=== PATIENT | male | born 1960 | race African-American/Black ===

== ENCOUNTER 2017-02-07 21:29 | Inpatient (IN) | payer MEDICARE, MEDICAID ==
[~2017-02-07] VITALS: Ht 188 cm; Wt 126.1 kg
[~2017-02-07 21:29] MED LIST: ALPR.25 PO; AMBI10TA PO; ASPI81CH CHEW; HYDR-3288 PO; LANTUS2P SQ; LIPI40TA PO; NORC5TAB PO; NOVORP2 SQ; PHOS667C5 PO; VENTAER INH; trimix SQ
[2017-02-07 21:32] VITALS: BP 146/71; PULSE 73; RESP 18; TEMP 99.1; O2SAT 96
--- NOTE | 2017-02-07 21:59 | PD ---
Physical Exam Time Seen by Provider: 21:55 Narrative 56yo M c/o RUQ abd pain w/ vomiting started today. vomiting in triage. Pt is dialysis pt; last done yesterday. Subjective fever. Hx of kidney stones. Hx of Hep C. VSS. Patient seen in triage. Awaiting bed placement. Data Data Last Documented VS Vital Signs Date Time Temp Pulse Resp B/P Pulse Ox O2 Delivery O2 Flow Rate FiO2 02/07/17 21:32 99.1 73 18 146/71 96 Room Air [facility] Supervised Visit with BECCA: Deanna Rosen Feb 07, 2017 21:59
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
[2017-02-07] MEDS ORDERED: MORPHINE SULFATE 8 MG/ML INJ IV PUSH ONE (23:30)
[2017-02-07] MEDS ORDERED: SODIUM CHLORIDE 0.9% FLUSH 10 ML FLUSH IV FLUSH PRN (23:30)
[2017-02-07] MEDS ORDERED: PANTOPRAZOLE SODIUM 40 MG VIAL IVP ONE (23:30)
[2017-02-07] MEDS ORDERED: ONDANSETRON HCL 4 MG/2 ML VIAL IVP ONE (23:30)
[2017-02-07 23:51] VITALS: BP 165/74; PULSE 66; RESP 24; O2SAT 100
[2017-02-08] VITALS: BP 165/74; PULSE 78; RESP 18; O2SAT 97
--- NOTE | 2017-02-08 00:19 | RADRPT ---
EXAM DATE/TIME: 02/07/2017 23:53 [place] COMPARISON: CT ABDOMEN & PELVIS W/O CONTRAST, March 05, 2016, 12:36. INDICATIONS : Right lower quadrant pain. ORAL CONTRAST: No oral contrast ingested. RADIATION DOSE: 17.47 CTDIvol (mGy) MEDICAL HISTORY : Diabetes mellitus type 2. Hypertension. Renal failure, chronic.Hep C SURGICAL HISTORY : None. ENCOUNTER: Initial ACUITY: 1 day PAIN SCALE: 6/10 LOCATION: Right lower quadrant TECHNIQUE: Volumetric scanning of the abdomen and pelvis was performed. Using automated exposure control and ad justment of the mA and/or kV according to patient size, radiation dose was kept as low as reasonably achievable to obtain optimal diagnostic quality images. The lack of IV contrast limits the diagnosis for certain organ pathology. He FINDINGS: LOWER LUNGS: The visualized lower lungs are clear. LIVER: Homogeneous density without lesion. There is no dilation of the biliary tree. Thickening of the gall bladder wall with a couple of tiny gallstones. This is unchanged compared to the prior exam. SPLEEN: Normal size without lesion. PANCREAS: Within normal limits. KIDNEYS: Normal in size and shape. There is no mass, stone, or hydronephrosis. The ureters are nondilated. ADRENAL GLANDS: Within normal limits. VASCULAR: There is no aortic aneurysm. BOWEL/MESENTERY: The stomach, small bowel, and colon demonstrate no acute abnormality. There is no free intraperitone al air or fluid. The appendix is unremarkable. There is stool in the colon. No inflammatory changes. ABDOMINAL WALL: Within normal limits. RETROPERITONEUM: There is no lymphadenopathy. BLADDER: Decompressed. No calcified stones. REPRODUCTIVE: Within normal limits. INGUINAL: There is no lymphadenopathy or hernia. MUSCULOSKELETAL: Primary bony degenerative changes. No significant changes compared to the prior study. CONCLUSION: 1. No evidence of calcified renal stones or hydronephrosis. 2. Chronic gallbladder disease not significantly changed compared to the prior study. 3. No acute intra-abdominal pathology. Gerard Pitts MD on February 08, 2017 at 0:14 Board Certified Radiologist. This report was verified electronically.
[2017-02-08 00:39] LABS: AUTOMATED NEUTROPHIL # 7.6 TH/MM3 (1.8-7.7); BASOPHIL % 0.3 % (0.0-2.0); EOSINOPHIL # 0.2 TH/MM3 (0-0.4); EOSINOPHIL % 2.2 % (0.0-4.0); HEMATOCRIT 33.9 % (39.0-51.0); HEMO FLAGS DIFF FINAL; LYMPH % 9.9 % (9.0-44.0); MEAN CELL VOLUME 91.1 FL (80.0-100.0); MEAN CORPUSCULAR HEMOGLOBIN 30.3 PG (27.0-34.0); MEAN CORPUSCULAR HGB CONC 33.2 % (32.0-36.0); MONO % 11.3 % (0.0-8.0); NEUT % 76.3 % (16.0-70.0); PLATELET COUNT 276 TH/MM3 (150-450); RED BLOOD COUNT 3.72 MIL/MM3 (4.50-5.90); RED CELL DISTRIBUTION WIDTH 14.9 % (11.6-17.2); WHITE BLOOD COUNT 9.9 TH/MM3 (4.0-11.0)
[2017-02-08 00:47] LABS: ALT (GPT) 795 U/L (12-78); ANION GAP 12 MEQ/L (5-15); BICARBONATE 27.8 MEQ/L (21.0-32.0); BLOOD UREA NITROGEN 34 MG/DL (7-18); CHLORIDE 98 MEQ/L (98-107); POTASSIUM 4.1 MEQ/L (3.5-5.1); SODIUM (NA) 138 MEQ/L (136-145)
[2017-02-08 00:49] LABS: APTT (PATIENT) 26.1 SEC (24.3-30.1); PROTHROMBIN TIME - PATIENT 10.9 SEC (9.8-11.6)
[2017-02-08 00:55] LABS: ALKALINE PHOSPHATASE 582 U/L (45-117); AST (GOT) 1054 U/L (15-37); TOTAL BILIRUBIN ADULT 1.4 MG/DL (0.2-1.0)
[2017-02-08] MEDS ORDERED: NALOXONE HCL 0.4 MG/ML AMP IV PRN (02:15)
[2017-02-08] MEDS ORDERED: ONDANSETRON HCL 4 MG/2 ML VIAL IVP PRN (02:15)
[2017-02-08] MEDS ORDERED: SODIUM CHLORIDE 0.9% FLUSH 10 ML FLUSH IV FLUSH PRN ×2 (02:15→12:00)
[2017-02-08 03:01] VITALS: BP 154/81; PULSE 70; RESP 18; TEMP 97.7; O2SAT 98
[2017-02-08] MEDS ORDERED: diphenhydrAMINE HCL 25 MG CAP PO PRN (03:45)
--- NOTE | 2017-02-08 06:01 | HHI.HP ---
[facility] Non-Staff Admission Diagnosis acute hepatitis, chronic kidney disease Diagnoses: Chief Complaint: abdominal pain Travel History International Travel<30 Days: No Contact w/Intl Traveler <30 Da: No Traveled to Known Affected Are: No History of Present Illness History from patient, ER physician communication, and review of medical records. Patient reported that he came to the hospital because he was having severe abdominal pains. He pointed to the right upper quadrant area. He reports he is not sure of the duration of his symptoms. He denies fever. However reports that he was having sweating and cold. Reports he always usually have diarrhea and he did not notice any worsening of it. He did have vomiting 1 today. He states that he was also having severe itching for past 3 days or so. He states he even went to [facility] about 3 days ago for itching. He was not admitted. He was never told that he did have some liver dysfunction. Patient states that he does have history of hepatitis C which was treated. He does not remember the names of the medications that he was given. He follows up with [facility] according to him. Apart from the above, patient denies any recent chest pain/shortness of breath/ syncopal episodes. He denies any blood in his stool or in his urine. Review of Systems Except as stated in HPI: all other systems reviewed are Neg Past Family Social History Past Medical History htn dm esrd on hd copd afib said only on asa hep C - by [facility], was treated Past Surgical History Bilateral eye surgery Intestinal repair in 2000 AV fistula placements. Ankle surgery, right Reported Medications Patient's medications EMRreviewed Allergies: Coded Allergies: No Known Allergies (Unverified , 02/07/17) Family History mom- dm , fr Social History smoker, but cant qualify drinks socially no drugs Physical Exam Vital Signs Vital Signs Date Time Temp Pulse Resp B/P Pulse Ox O2 Delivery O2 Flow Rate FiO2 02/08/17 03:01 97.7 70 18 154/81 98 02/08/17 00:00 78 18 165/74 97 Room Air 02/07/17 23:51 100 Room Air 02/07/17 23:51 66 24 165/74 100 Room Air 02/07/17 21:32 99.1 73 18 146/71 96 Room Air Physical Exam GENERAL: This is a well-nourished, well-developed patient, in no apparent distress. SKIN: No rashes, ecchymoses or lesions. Cool and dry. HEAD: Atraumatic. Normocephalic. No temporal or scalp tenderness. EYES: No scleral icterus. No injection or drainage. ENT: Nose without bleeding, purulent drainage or septal hematoma. Airway patent. NECK: Trachea midline. No JVD CARDIOVASCULAR: Regular rate and rhythm without murmurs, gallops, or rubs. RESPIRATORY: Clear to auscultation. Breath sounds equal bilaterally. No wheezes , rales, or rhonchi. GASTROINTESTINAL: Abdomen soft, non-tender, nondistended. No guarding. MUSCULOSKELETAL: Extremities without clubbing, cyanosis, or edema. No calf tenderness. NEUROLOGICAL: Awake and alert. Motor and sensory grossly within normal limits. Normal speech. Laboratory Laboratory Tests Test 02/08/17 00:20 White Blood Count 9.9 Red Blood Count 3.72 Hemoglobin 11.3 Hematocrit 33.9 Mean Corpuscular Volume 91.1 Mean Corpuscular Hemoglobin 30.3 Mean Corpuscular Hemoglobin 33.2 Concent Red Cell Distribution Width 14.9 Platelet Count 276 Mean Platelet Volume 8.8 Neutrophils (%) (Auto) 76.3 Lymphocytes (%) (Auto) 9.9 Monocytes (%) (Auto) 11.3 Eosinophils (%) (Auto) 2.2 Basophils (%) (Auto) 0.3 Neutrophils # (Auto) 7.6 Lymphocytes # (Auto) 1.0 Monocytes # (Auto) 1.1 Eosinophils # (Auto) 0.2 Basophils # (Auto) 0.0 CBC Comment DIFF FINAL Differential Comment Prothrombin Time 10.9 Prothromb Time International 1.0 Ratio Activated Partial 26.1 Thromboplast Time Sodium Level 138 Potassium Level 4.1 Chloride Level 98 Carbon Dioxide Level 27.8 Anion Gap 12 Blood Urea Nitrogen 34 Creatinine 9.17 Random Glucose 264 Lactic Acid Level 1.1 Calcium Level 9.8 Total Bilirubin 1.4 Aspartate Amino Transf 1054 (AST/SGOT) Alanine Aminotransferase 795 (ALT/SGPT) Alkaline Phosphatase 582 Total Protein 8.9 Albumin 3.6 Lipase 504 Acetaminophen Level LESS THAN 2.0 Result Diagram: 02/08/17 0020 02/08/17 0020 Imaging Last 48 hours Impressions Abdomen/Pelvis CT 02/07/17 2323 Signed Impressions: Service Date/Time: January 23:53 - CONCLUSION: 1. No evidence of calcified renal stones or hydronephrosis. 2. Chronic gallbladder disease not significantly changed compared to the prior study. 3. No acute intra-abdominal pathology. Gerard Pitts MD Assessment and Plan Problem List: (1) Renal failure ICD Code: N19 Status: Chronic Assessment and Plan Impression: Acute transaminitis/ hepatitisetiology unclear. Rule out stones/Tylenol toxicity Acute pancreatitis Hypertension Diabetes COPD Reports atrial fibrillationonly on aspirin Hepatitis C/reports he was treated. unsure it was sucessful or not. [facility] with [facility]. ESRD on hemodialysis Plan: Patient's case was discussed with GI specialists by ER physician. At this point, there is no evidence of Tylenol toxicity. Tylenol level was drawn and was negative. Patient also denies taking Tylenol. We'll follow trend. CT abdomen isreviewed. Nephrology consult for hemodialysis. Unfortunately, in this end-stage renal disease patient with likely diastolic heart failure, he would have to be cautious with IV fluids. CT did not reveal any acute pathology including pancreatitis or stones. Need to obtain home medications from pharmacy as patient not remember them. In DVT prophylaxiswith heparin Discussed Condition With Patient, ER physician Physician Certification 2 Midnight Certification Type: Admission for Inpatient Services Order for Inpatient Services The services are ordered in accordance with Medicare regulations or non- Medicare payer requirements, as applicable. In the case of services not specified as inpatient-only, they are appropriately provided as inpatient services in accordance with the 2-midnight benchmark. Estimated LOS (days): 2 days is the estimated time the patient will need to remain in the hospital, assuming treatment plan goals are met and no additional complications. Post-Hospital Plan: Home Leroy Echevarria MD Feb 08, 2017 06:01
[2017-02-08] MEDS ORDERED: DEXTROSE 50% IN WATER 50 ML VIAL(D50) IV PUSH PRN (07:00)
[2017-02-08] MEDS ORDERED: GLUCAGON 1 MG/ML VIAL OTHER PRN (07:00)
[2017-02-08] MEDS: diphenhydrAMINE HCL 50 MG/ML VIAL IV PUSH PRN ×2 (07:36→11:21)
[2017-02-08 08:00] VITALS: BP 195/88; PULSE 59; RESP 18; TEMP 97.2; O2SAT 95
[2017-02-08] MEDS: SODIUM CHLORIDE 0.9% FLUSH 10 ML FLUSH IV FLUSH SCH ×2 (09:00→21:10)
--- NOTE | 2017-02-08 09:33 | PD.CONS ---
HPI History of Present Illness This is a 56 year old AA male with past medical history of HTN, A-fib, ESRD on HD, COPD, A-fib on ASA, hep-c s/p treatment few months ago is here for evaluation of severe RUQ pain associated with nausea, vomiting, sever itching and dark urine. He is not sure of duration of this pain, but it became unbearable yesterday. He has been having severe itching for past few days. He was sent to [facility] about 3 days ago from dialysis for itching, and that's when he learned about the elevation of LFTs and was told to f/u with GI, but hasn't made a f/u appt. yet. He reports that he was having sweating and cold , no fever or chills. He reports chronic constipation but no change in bowel habits. He reports a loss in appetite. Tylenol levels negative, he drinks on occasions, he denies NSAIDs or new medications or abx. On arrival AST 1054, ALT 795, ALP 582, bili 1.4, lipase 504. CT done . No evidence of calcified renal stones or hydronephrosis. 2. Chronic gallbladder disease not significantly changed compared to the prior study. 3. No acute intra-abdominal pathology. (Marcus Marino) PFSH Past Medical History htn dm esrd on hd copd afib said only on asa hep C - s/p treatment few months ago Past Surgical History Bilateral eye surgery Intestinal repair in 2000 AV fistula placements. Ankle surgery, right (Marcus Marino) Coded Allergies: No Known Allergies (Unverified , 02/07/17) Medications Current Medications Medications (Trade) Dose Ordered Sig/Katelyn Route Start Time Stop Time Status Last Admin (NS Flush) 2 ml UNSCH PRN IV FLUSH 02/07/17 23:30 (NS Flush) 2 ml UNSCH PRN IV FLUSH 02/08/17 02:15 (NS Flush) 2 ml BID IV FLUSH 02/08/17 09:00 (Zofran Inj) 4 mg Q6H PRN IVP 02/08/17 02:15 (Narcan Inj) 0.4 mg UNSCH PRN IV 02/08/17 02:15 (Benadryl Inj) 50 mg Q4H PRN IV PUSH 02/08/17 07:00 02/08/17 07:36 (D50w (Vial) Inj) 25 ml UNSCH PRN IV PUSH 02/08/17 07:00 (Glucagon Inj) 1 mg UNSCH PRN OTHER 02/08/17 07:00 Family History Non contributory Social History smoker, but cant qualify drinks socially no drugs (Marcus Marino) Review of Systems Constitutional: COMPLAINS OF: Fatigue, Change in appetite Eyes: DENIES: Double Vision Ears, nose, mouth, throat: DENIES: Hoarseness Respiratory: DENIES: Shortness of breath Cardiovascular: DENIES: Lower Extremity Edema Gastrointestinal: COMPLAINS OF: Abdominal pain, Constipation, Nausea, Vomiting , Anorexia, DENIES: Black stools, Bloody stools, Diarrhea, Difficulty Swallowing, Odynophagia, Swelling of Abdomen, Heartburn, Hematemesis Genitourinary: DENIES: Hematuria Musculoskeletal: DENIES: Neck pain Integumentary: DENIES: Jaundice Hematologic/lymphatic: DENIES: Bruising Neurologic: DENIES: Abnormal gait Psychiatric: DENIES: Anxiety (Marcus Marino) GI Exam Vitals I&O Vital Signs Date Time Temp Pulse Resp B/P Pulse Ox O2 Delivery O2 Flow Rate FiO2 02/08/17 03:01 97.7 70 18 154/81 98 02/08/17 00:00 78 18 165/74 97 Room Air 02/07/17 23:51 100 Room Air 02/07/17 23:51 66 24 165/74 100 Room Air 02/07/17 21:32 99.1 73 18 146/71 96 Room Air I/O 02/07/17 02/07/17 02/07/17 02/08/17 02/08/17 02/08/17 07:00 15:00 23:00 07:00 15:00 23:00 Intake Total 0 ml Balance 0 ml Intake Oral 0 ml # Voids 0 # Bowel Movements 0 Imaging Last Impressions Abdomen/Pelvis CT 02/07/17 [id number] Signed Impressions: Service Date/Time: January 23:53 - CONCLUSION: 1. No evidence of calcified renal stones or hydronephrosis. 2. Chronic gallbladder disease not significantly changed compared to the prior study. 3. No acute intra-abdominal pathology. Gerard Pitts MD Laboratory Test 02/08/17 00:20 White Blood Count 9.9 TH/MM3 Red Blood Count 3.72 MIL/MM3 Hemoglobin 11.3 GM/DL Hematocrit 33.9 % Mean Corpuscular Volume 91.1 FL Mean Corpuscular Hemoglobin 30.3 PG Mean Corpuscular Hemoglobin 33.2 % Concent Red Cell Distribution Width 14.9 % Platelet Count 276 TH/MM3 Mean Platelet Volume 8.8 FL Neutrophils (%) (Auto) 76.3 % Lymphocytes (%) (Auto) 9.9 % Monocytes (%) (Auto) 11.3 % Eosinophils (%) (Auto) 2.2 % Basophils (%) (Auto) 0.3 % Neutrophils # (Auto) 7.6 TH/MM3 Lymphocytes # (Auto) 1.0 TH/MM3 Monocytes # (Auto) 1.1 TH/MM3 Eosinophils # (Auto) 0.2 TH/MM3 Basophils # (Auto) 0.0 TH/MM3 CBC Comment DIFF FINAL Differential Comment Prothrombin Time 10.9 SEC Prothromb Time International 1.0 RATIO Ratio Activated Partial 26.1 SEC Thromboplast Time Sodium Level 138 MEQ/L Potassium Level 4.1 MEQ/L Chloride Level 98 MEQ/L Carbon Dioxide Level 27.8 MEQ/L Anion Gap 12 MEQ/L Blood Urea Nitrogen 34 MG/DL Creatinine 9.17 MG/DL Random Glucose 264 MG/DL Lactic Acid Level 1.1 mmol/L Calcium Level 9.8 MG/DL Total Bilirubin 1.4 MG/DL Aspartate Amino Transf 1054 U/L (AST/SGOT) Alanine Aminotransferase 795 U/L (ALT/SGPT) Alkaline Phosphatase 582 U/L Total Protein 8.9 GM/DL Albumin 3.6 GM/DL Lipase 504 U/L Acetaminophen Level LESS THAN 2.0 MCG/ML Physical Examination HEENT: normocephalic; atraumatic; no jaundice. Throat is clear. NECK: Neck is supple, no JVD, no lymphadenopathy. CHEST: Chest is clear to auscultation and percussion. CARDIAC: Regular rate and rhythm with no murmur gallop or rubs. ABDOMEN: Soft, nondistended, nontender; no hepatosplenomegaly; bowel sounds are present in all four quadrants. EXTREMITIES: No clubbing, cyanosis, or edema. SKIN: Normal; no rash; no jaundice. SPECIAL EDUCATION EDUCATIONAL ASSISTANT: No focal deficits; alert and oriented times three. (Marcus Marino) Assessment and Plan Plan - Acute transaminitis- Unclear etiology, no hypotension documented, Possible gallstones related, biliary stones, or acute cholecystitis On arrival AST 1054, ALT 795, ALP 582, bili 1.4, lipase 504. CT done . No evidence of calcified renal stones or hydronephrosis. 2. Chronic gallbladder disease not significantly changed compared to the prior study. 3. No acute intra-abdominal pathology. He has been having severe RUQ pain associated with nausea, vomiting, sever itching and dark urine. He is not sure of duration of this pain, but it became unbearable yesterday. He has been having severe itching for past few days. He was sent to [facility] about 3 days ago from dialysis for itching, and that's when he learned about the elevation of LFTs and was told to f/u with GI, but hasn't made a f/u appt. yet. He reports that he was having sweating and cold, no fever or chills. He reports chronic constipation but no change in bowel habits. He reports a loss in appetite. Tylenol levels negative, he drinks on occasions, he denies NSAIDs or new medications or abx. - Acute pancreatitis- lipase 504, no pancreatitis on ct, - Severe itching- Benadryl - Hep-c s/p tx - ESRD- HD (M, W, F) - A-fib, HTN per attending Plan: - NPO - MRCP to r/o biliary sludge, choledocholithiasis - Monitor labs - hepatitis panel/ hep-c PCR, ceruloplasmin, alpha-antitrypsin deficiency, celiac, iron studies, KAMRAN, AMA, ASMA - Pending results above, will decide on the next step - Consider GS consult - IV hydration - Pain meds - Cont. Benadryl - Patient seen and examined by Dr. Griffin and myself and this note is written on his behalf. (Marcus Marino) Physician Comments PATIENT WAS SEEN AND EXAMINED, AGREE WITH ABOVE NOTE. MRCP SHOWED CBD STONES, WE WILL PLAN FOR ERCP IN AM (Waleska Griffin MD) Marcus Marino Feb 08, 2017 09:32 Waleska Griffin MD Feb 08, 2017 19:10
--- NOTE | 2017-02-08 11:30 | RADRPT ---
EXAM DATE/TIME: 02/08/2017 10:18 [facility] COMPARISON: CT ABDOMEN & PELVIS W/O CONTRAST, February 07, 2017, 23:53. INDICATIONS : Abdominal pain. MEDICAL HISTORY : Hypertension. Diabetes mellitus type 2. Renal disease, end stage. SURGICAL HISTORY : Colon resection. Right ankle. ENCOUNTER: Initial ACUITY: 2 day PAIN SCORE: 5/10 LOCATION: abdomen TECHNIQUE: Multiplanar, multisequence magnetic resonance imaging of the abdomen was performed. High-resolution 3D dataset was utilized to reconstruct maximum-intensity projection (MIP) images. FINDINGS: INTRAHEPATIC BILE DUCTS: Minimally dilated without filling defects. EXTRAHEPATIC BILE DUCTS: Moderately dilated with common duct diameter of 12-13 mm. Multiple small stones in the distal CBD. GALLBLADDER: Filled with stones. Moderate diffuse gallbladder wall thickening. Stones in the gallbladder neck and cystic duct. LIVER: Normal size and signal intensity. No concerning liver lesion is identified on this non-contrast exam. PANCREAS: The main pancreatic duct is normal in size. There is no significant anatomical variant. Signal inte nsity is within normal limits. No mass is visualized on this non-contrast exam. OTHER: The remaining visualized structures demonstrate no acute abnormality on this non-contrast exam. CONCLUSION: Gallstones and cystic duct stones with diffuse gallbladder wall thickening. Intra-and extrahepatic biliary ductal dilatation with multiple small stones in the distal CBD. Dawit Hernandez MD on February 08, 2017 at 11:14 Board Certified Radiologist. This report was verified electronically.
[2017-02-08] MEDS ORDERED: OXYC15TA PO (11:50)
[2017-02-08] MEDS ORDERED: GABA600T PO (11:50)
[2017-02-08] MEDS ORDERED: MELO7.5T4 PO (11:50)
[2017-02-08] MEDS ORDERED: SODIUM CHLOR 0.9% 1000 ML INJ 1,000 ML IV PRN ×3 (11:53)
[2017-02-08 12:00] VITALS: BP 134/76; PULSE 58; RESP 18; TEMP 97.7; O2SAT 95
[2017-02-08] MEDS ORDERED: HEPARIN SODIUM - IV 10,000 UNITS/10 ML VIAL PRN (12:00)
[2017-02-08] MEDS ORDERED: HEPARIN SODIUM - IV 10,000 UNITS/10 ML VIAL IVF PRN (12:00)
[2017-02-08] MEDS ORDERED: MANNITOL 12.5 GM/50 ML VIAL IV PRN (12:00)
[2017-02-08] MEDS ORDERED: NITROGLYCERIN 0.4 MG SL 25 TABS/BTL SL PRN (12:00)
[2017-02-08] MEDS ORDERED: ONDANSETRON HCL 4 MG/2 ML VIAL IV PRN (12:00)
[2017-02-08] MEDS ORDERED: cloNIDine HCL 0.1 MG TAB PO PRN ×2 (12:00→14:30)
[2017-02-08] MEDS ORDERED: ALBUMIN HUMAN 25% 25 GM/100 ML BAGP IV PRN (12:00)
[2017-02-08] MEDS ORDERED: GENTAMICIN SULFATE (DIALYSIS USE ONLY) 20 MG/2 ML VIAL IV PRN (12:00)
[2017-02-08] MEDS ORDERED: ACETAMINOPHEN 325 MG TAB PO PRN (12:00)
[2017-02-08] MEDS: hydrOXYzine HCL 25 MG TAB PO PRN ×2 (12:50→22:38)
[2017-02-08 13:37] LABS: PROTHROMBIN TIME - PATIENT 11.1 SEC (9.8-11.6)
--- NOTE | 2017-02-08 13:38 | MB ---
cc: EDILMA BUSTILLOS MD DATE OF CONSULTATION 02/08/2017 REASON FOR CONSULTATION End-stage renal disease on hemodialysis for management. HISTORY OF PRESENT ILLNESS This is a 56-year-old male known to me from before with past medical history of hypertension, diabetes mellitus, chronic obstructive pulmonary disease, atrial fibrillation and end-stage renal disease on hemodialysis three times per week who came to the hospital with a complaint of abdominal pain, nausea, vomiting and loose bowel motion. I was called to see the patient for the management of dialysis. He has been on hemodialysis Saturday, Saturday and Saturday and he had his last hemodialysis done on Saturday. He had some problem with his AV fistula and he had angioplasty done two to three weeks ago and since then, according to the patient, it is working better and he had good dialysis on Saturday. According to the patient, this nausea and vomiting started two to three days ago. He had loose bowel motion from before and also has abdominal pain which started two to three days ago which was mainly the right upper quadrant. His vomiting and loose bowel motion is better and his pain is also improving. The patient was seen by GI and he just went for the MRCP. He denies any history of fever. No shortness of breath, chest pain or palpitation. PAST MEDICAL HISTORY 1. Hypertension 2. Diabetes mellitus 3. Chronic obstructive pulmonary disease 4. Atrial fibrillation 5. End-stage renal disease on hemodialysis. PAST SURGICAL HISTORY 1. Bilateral eye surgery 2. Left arm AV fistula surgery 3. Ankle surgery 4. Intestinal repair surgery in 2000. REVIEW OF SYSTEMS Denies any history of fever. No sore throat. No headache, dizziness or blurring of vision. No chest pain and no palpitation. He has nausea and vomiting that started two to three days ago, but it is better since he came to the hospital. There is no history of fevers. He has loose bowel motion going on for more than a week and has abdominal pain that is mainly in the epigastrium and the right upper quadrant, but is improving also. SOCIAL HISTORY The patient is a chronic smoker. There is no history of heavy alcoholism. FAMILY HISTORY Noncontributory ALLERGIES He has NO KNOWN DRUG ALLERGIES. MEDICATIONS Currently he is just on and he is just been given one dose of Protonix and he is on morphine sulfate. PHYSICAL EXAM On examination, the patient is awake and alert. He is sitting on the bed not in acute distress. VITAL SIGNS: Blood pressure is 195/88, temperature 97.2, oxygen saturation 95-98% on room air. HEAD, EYES, EARS, NOSE, AND THROAT: Pupils equally reacting to light. Nonicteric sclera, conjunctiva pale. NECK: Supple. JVD is not elevated. LUNGS: The patient has bilaterally decreased air entry at the bases with occasional wheezing. HEART: S1 and S2 regular rhythm. ABDOMEN: Distended, soft and lax. There is mild epigastric tenderness. There is no rebound rigidity. Bowel sounds positive. EXTREMITIES: He has 1+ edema in the leg. Left arm AV fistula has a good bruit. INVESTIGATION WBC count is 9.9, hemoglobin 11.3, platelet count of 276, neutrophils 76.3%, monos 11.3. Sodium 138, potassium 4.1, chloride 98, bicarb 27.8, BUN 34, creatinine 9.1, glucose 264, total bilirubin is 1.4, AST is 1054, ALT is 795, alkaline phosphatase 582, total protein 6.9, albumin is 3.6, lipase 504, INR 1.0. Lactic acid is 1.1. Previously he had hepatitis C antibodies reactive. IMAGING STUDIES The patient had a CT scan of the abdomen and pelvis done which shows that she has no renal stone or hydronephrosis. He has chronic gallbladder disease. No acute intra-abdominal pathology. He went for MRCP and shows one stone in the cystic duct, a stone with diffuse gallbladder thickening, multiple stones in the distal common bile duct. ASSESSMENT/PLAN 1. Acute liver injury 2. Gallbladder and CBD stone 3. End-stage renal disease on hemodialysis 4. Hypertension 5. Diabetes mellitus 6. Mild anemia 7. Obesity The patient has been seen by GI and he has a stone in the CBD and possibly will need ERCP. GI is following. His liver enzymes are elevated, possibly related to that. At present, he is hemodynamically stable. His blood pressure on the higher side because he was not given his home medications and also was supposed to have dialysis today. I already informed the dialysis, I am going to write the order. He is complaining of itching so I will give him some Atarax. Thank you for the consultation and over the weekend the patient will be followed by Dr. Arce. MD PHILOMENA Mcdaniel/DJL /11:50 AM /1:14 PM
[2017-02-08 13:43] LABS: AUTOMATED NEUTROPHIL # 4.5 TH/MM3 (1.8-7.7); BASOPHIL # 0.1 TH/MM3 (0-0.2); BASOPHIL % 0.8 % (0.0-2.0); EOSINOPHIL # 0.2 TH/MM3 (0-0.4); EOSINOPHIL % 3.7 % (0.0-4.0); HEMATOCRIT 35.2 % (39.0-51.0); HEMO FLAGS DIFF FINAL; LYMPH % 15.8 % (9.0-44.0); MEAN CELL VOLUME 91.3 FL (80.0-100.0); MEAN CORPUSCULAR HEMOGLOBIN 29.9 PG (27.0-34.0); MEAN CORPUSCULAR HGB CONC 32.7 % (32.0-36.0); MONO % 11.1 % (0.0-8.0); NEUT % 68.6 % (16.0-70.0); PLATELET COUNT 281 TH/MM3 (150-450); RED BLOOD COUNT 3.86 MIL/MM3 (4.50-5.90); RED CELL DISTRIBUTION WIDTH 15.2 % (11.6-17.2); WHITE BLOOD COUNT 6.5 TH/MM3 (4.0-11.0)
[2017-02-08 14:00] LABS: ALKALINE PHOSPHATASE 584 U/L (45-117); ALT (GPT) 1270 U/L (12-78); ANION GAP 10 MEQ/L (5-15); AST (GOT) 1508 U/L (15-37); BICARBONATE 25.8 MEQ/L (21.0-32.0); BLOOD UREA NITROGEN 42 MG/DL (7-18); CHLORIDE 100 MEQ/L (98-107); GLOMERULAR FILTRATION RATE 6 ML/MIN (>89); POTASSIUM 4.1 MEQ/L (3.5-5.1); SODIUM (NA) 136 MEQ/L (136-145); TOTAL BILIRUBIN ADULT 1.6 MG/DL (0.2-1.0)
[2017-02-08] MEDS ORDERED: ALPRAZolam 0.25 MG TAB PO PRN (14:30)
[2017-02-08] MEDS ORDERED: ALBUTEROL SULFATE 90 MCG/ACT HFA 8 GM INHALER INH PRN (14:30)
[2017-02-08] MEDS ORDERED: ALBUTEROL SULFATE 90 MCG/ACT HFA 18 GM INHALER INH PRN (14:47)
[2017-02-08] MEDS: EPOETIN ALFA 10,000 UNITS/ML VIAL IV PRN (15:51)
[2017-02-08] MEDS: GELATIN 12 MM/7 MM FOAM TOP PRN (15:52)
[2017-02-08] MEDS: INSULIN ASPART SUPPLEMENTAL SCALE SQ SCH ×2 (16:00→21:00)
--- NOTE | 2017-02-08 16:26 | HHI.PR ---
Addendum to Inpatient Note Addendum Reason: Additional Documentation Additional Information The patient received dialysis. He went for MRCP which showed diffuse gallbladder wall thickening, gallstones and stones in the distal common bile duct. Gastroenterology was notified and will schedule an ERCP for the morning. LFTs and lipase will be monitored. He will be nothing by mouth. He'll receive pain control as needed. Poli Arreola DO Feb 08, 2017 16:26
[2017-02-08] MEDS: CALCIUM ACETATE 667 MG CAP PO SCH (18:00)
[2017-02-08] MEDS ORDERED: GABAPENTIN 100 MG CAP PO SCH (18:00)
[2017-02-08 18:10] VITALS: BP 131/61; PULSE 55; RESP 20; TEMP 97.6; O2SAT 100
[2017-02-08 18:57] LABS: ALKALINE PHOSPHATASE 552 U/L (45-117); ANION GAP 8 MEQ/L (5-15); BLOOD UREA NITROGEN 31 MG/DL (7-18); CHLORIDE 100 MEQ/L (98-107); GLOMERULAR FILTRATION RATE 8 ML/MIN (>89); POTASSIUM 3.9 MEQ/L (3.5-5.1); SODIUM (NA) 136 MEQ/L (136-145); TOTAL BILIRUBIN ADULT 1.2 MG/DL (0.2-1.0); TRANSFERRIN IRON PROFILE 179 MG/DL (200-360)
[2017-02-08 19:18] LABS: ALT (GPT) 1143 U/L (12-78); AST (GOT) 1051 U/L (15-37)
[2017-02-08 19:31] LABS: FERRITIN 2316 NG/ML (26-388)
[2017-02-08 21:22] VITALS: BP 131/72; PULSE 58; RESP 22; TEMP 98.2; O2SAT 99
[2017-02-09] VITALS (10 sets, daily range): BP systolic 117–138; BP diastolic 63–79; PULSE 46–65; RESP 16–22; TEMP 97.3–98.7; O2SAT 93–100
[2017-02-09 01:10] LABS: ALKALINE PHOSPHATASE 512 U/L (45-117); ALT (GPT) 970 U/L (12-78); ANION GAP 12 MEQ/L (5-15); AST (GOT) 695 U/L (15-37); BICARBONATE 29.4 MEQ/L (21.0-32.0); BLOOD UREA NITROGEN 34 MG/DL (7-18); CHLORIDE 97 MEQ/L (98-107); GLOMERULAR FILTRATION RATE 7 ML/MIN (>89); POTASSIUM 3.7 MEQ/L (3.5-5.1); SODIUM (NA) 138 MEQ/L (136-145); TOTAL BILIRUBIN ADULT 0.7 MG/DL (0.2-1.0)
[2017-02-09] MEDS: diphenhydrAMINE HCL 50 MG/ML VIAL IV PUSH PRN ×2 (05:11→19:49)
[2017-02-09] MEDS: INSULIN ASPART SUPPLEMENTAL SCALE SQ SCH ×4 (07:53→20:37)
[2017-02-09] MEDS: SODIUM CHLORIDE 0.9% FLUSH 10 ML FLUSH IV FLUSH SCH ×2 (08:00→19:49)
[2017-02-09] MEDS: CALCIUM ACETATE 667 MG CAP PO SCH ×3 (09:00→17:39)
[2017-02-09] MEDS ORDERED: PROPOFOL 200 MG/20 ML AMP IV ONE (10:45)
[2017-02-09] MEDS ORDERED: GLUCAGON 1 MG/ML VIAL IV ONE (10:54)
[2017-02-09] MEDS ORDERED: SINCALIDE 5 MCG/5 ML VIAL IV ONE (11:02)
--- NOTE | 2017-02-09 11:58 | RADRPT ---
EXAM DATE/TIME: 02/09/2017 10:47 [facility] COMPARISON: No previous studies available for comparison. INDICATIONS : Stones. FLUORO TIME: 5.2 minutes IMAGE COUNT: 4 CONTRAST: Instilled by Ordering Physician MEDICAL HISTORY : None. SURGICAL HISTORY : None. ENCOUNTER: Initial ACUITY: 1 day PAIN SCORE: Non-responsive. LOCATION: Right upper quadrant FINDINGS: An ERCP was performed by the ordering physician. The images demonstrate dilated common bile duct and a balloon in the common bile duct for common bile duct stone extraction. CONCLUSION: ERCP as above. Delma Obando MD on February 09, 2017 at 11:56 Board Certified Radiologist. This report was verified electronically.
[2017-02-09] MEDS ORDERED: KETAMINE HCL 500 MG/5 ML VIAL ONE (12:13)
--- NOTE | 2017-02-09 13:34 | HHI.PR ---
Subjective Remarks The patient was seen following ERCP. He said this pain has resolved. He wanted to know what caused his itching. He was not nauseous. He was willing to try something to eat. Family at the bedside. Discussed with nursing. Objective Vitals Vital Signs Date Time Temp Pulse Resp B/P Pulse Ox O2 Delivery O2 Flow Rate FiO2 02/09/17 12:29 97.9 54 16 138/73 99 02/09/17 12:00 97.3 60 14 168/88 97 Nasal Cannula 2 02/09/17 11:45 59 14 164/91 97 Nasal Cannula 2 02/09/17 11:40 97.3 56 14 137/94 97 Nasal Cannula 2 02/09/17 08:29 93 21 02/09/17 08:05 97.3 46 16 137/66 99 02/09/17 04:06 98.7 65 22 128/78 98 02/09/17 00:16 98.6 54 20 117/63 96 02/08/17 21:22 98.2 58 22 131/72 99 02/08/17 18:10 97.6 55 20 131/61 100 I/O 02/08/17 02/08/17 02/08/17 02/09/17 02/09/17 02/09/17 07:00 15:00 23:00 07:00 15:00 23:00 Intake Total 0 ml 560 ml 0 ml 100 ml Output Total 150 ml 2003 ml 0 ml Balance 0 ml -150 ml -1443 ml 0 ml 100 ml Intake Oral 0 ml 560 ml 0 ml Other 100 ml Output Urine Total 150 ml 3 ml 0 ml Hemodialysis 2000 ml # Voids 0 # Bowel Movements 0 0 0 Result Diagram: 02/08/17 1307 02/08/17 2355 Imaging Last Impressions GI Procedure 02/09/17 0000 Signed Impressions: Service Date/Time: Thursday, February 09, 2017 10:47 - CONCLUSION: ERCP as above. Delma Obando MD Cholangiopancreatography MRI 02/08/17 0000 Signed Impressions: Service Date/Time: Wednesday, February 08, 2017 10:18 - CONCLUSION: Gallstones and cystic duct stones with diffuse gallbladder wall thickening. Intra-and extrahepatic biliary ductal dilatation with multiple small stones in the distal CBD. Dawit Hernandez MD Abdomen/Pelvis CT 02/07/17 [id number] Signed Impressions: Service Date/Time: January 23:53 - CONCLUSION: 1. No evidence of calcified renal stones or hydronephrosis. 2. Chronic gallbladder disease not significantly changed compared to the prior study. 3. No acute intra-abdominal pathology. Gerard Pitts MD Objective Remarks GENERAL: This is a well-nourished, well-developed patient, in no apparent distress. SKIN: No rashes, ecchymoses or lesions. Cool and dry. HEAD: Atraumatic. Normocephalic. No temporal or scalp tenderness. EYES: No scleral icterus. No injection or drainage. ENT: Nose without bleeding, purulent drainage or septal hematoma. Airway patent. NECK: Trachea midline. No JVD CARDIOVASCULAR: Regular rate and rhythm without murmurs, gallops, or rubs. RESPIRATORY: Clear to auscultation. Breath sounds equal bilaterally. No wheezes , rales, or rhonchi. GASTROINTESTINAL: Abdomen soft, non-tender, distended but soft. No guarding. MUSCULOSKELETAL: Extremities without clubbing, cyanosis, or edema. NEUROLOGICAL: Awake and alert. Motor and sensory grossly within normal limits. Normal speech. PSYCH: Mood and affect appropriate. Procedures ERCP 02/09. Medications and IVs Current Medications Medications (Trade) Dose Ordered Sig/Katelyn Route Start Time Stop Time Status Last Admin (NS Flush) 2 ml UNSCH PRN IV FLUSH 02/08/17 02:15 (NS Flush) 2 ml BID IV FLUSH 02/08/17 09:00 02/09/17 08:00 (Zofran Inj) 4 mg Q6H PRN IVP 02/08/17 02:15 (Narcan Inj) 0.4 mg UNSCH PRN IV 02/08/17 02:15 (Benadryl Inj) 50 mg Q4H PRN IV PUSH 02/08/17 07:00 02/09/17 05:11 (D50w (Vial) Inj) 25 ml UNSCH PRN IV PUSH 02/08/17 07:00 (Glucagon Inj) 1 mg UNSCH PRN OTHER 02/08/17 07:00 Hydroxyzine HCl 25 mg 25 mg Q8H PRN PO 02/08/17 12:00 02/08/17 22:38 (NS 1000 ml Inj) 1,000 ml @ 0 mls/hr Q0M PRN IV 02/08/17 11:53 Heparin Sodium (Porcine) 8000 units 8,000 units UNSCH PRN IVF 02/08/17 12:00 Sodium Chloride 1,000 ml @ 200 mls/hr Q5H PRN IV 02/08/17 11:53 (NS 1000 ml Inj) 1,000 ml @ 0 mls/hr Q0M PRN IV 02/08/17 11:53 (Mannitol Inj) 12.5 gm UNSCH PRN IV 02/08/17 12:00 (Albumin 25% Inj) 25 gm UNSCH PRN IV 02/08/17 12:00 (NS Flush) 5 ml UNSCH PRN IV FLUSH 02/08/17 12:00 (Heparin Inj) UNSCH PRN .XX 02/08/17 12:00 (Gentamicin (Dialysis) Inj) 20 mg UNSCH PRN IV 02/08/17 12:00 (Zofran Inj) 4 mg UNSCH PRN IV 02/08/17 12:00 (Tylenol) 650 mg UNSCH PRN PO 02/08/17 12:00 (Benadryl) 25 mg UNSCH PRN PO 02/08/17 12:00 (Nitrostat Sl) 0.4 mg UNSCH PRN SL 02/08/17 12:00 (Catapres) 0.1 mg UNSCH PRN PO 02/08/17 12:00 (Epogen Inj) 6,000 units UNSCH PRN IV 02/08/17 12:00 02/08/17 15:51 (Gelfoam 12 Mm/7 Mm Top) 1 foam UNSCH PRN TOP 02/08/17 12:00 02/08/17 15:52 (Xanax) 0.25 mg Q6H PRN PO 02/08/17 14:30 (Phoslo) 1,334 mg TID PO 02/08/17 18:00 02/08/17 18:00 (Roxicodone) 5 mg Q4H PRN PO 02/08/17 14:30 02/08/17 21:10 (Roxicodone) 15 mg Q4H PRN PO 02/08/17 14:30 (Catapres) 0.1 mg Q6H PRN PO 02/08/17 14:30 (Ventolin Hfa Inh) 1 puff Q4H PRN INH 02/08/17 14:47 (Colace) 100 mg BID PO 02/09/17 12:45 (Senokot) 17.2 mg DAILY PO 02/09/17 12:45 A/P Problem List: (1) Renal failure ICD Code: N19 Status: Chronic Assessment and Plan Choledocholithiasis/ Pancreatitis GI was consulted. MRCP showed: Gallstones and cystic duct stones with diffuse gallbladder wall thickening; Intra-and extrahepatic biliary ductal dilatation with multiple small stones in the distal CBD. ERCP was performed 02/09/17. - clear liquid diet. - follow LFTs, lipase. - pain meds and antiemetics as needed. - follow up with GI. Hypertension Blood pressure has been elevated, likely exacerbated by pain. - clonidine as needed. - pain control. Diabetes Glucose poorly controlled. - insulin sliding scale. - start Levemir 15 units daily. ESRD On hemodialysis. Nephrology consulted for hemodialysis. - dialysis per nephrology. PPx: Heparin. Discharge Planning Awaiting GI clearance. Poli Arreola DO Feb 09, 2017 13:34
[2017-02-09] MEDS: diphenhydrAMINE HCL 25 MG CAP PO PRN (13:45)
--- NOTE | 2017-02-09 13:51 | EKG ---
Date Performed: 02/09/2017 Time Performed: 06:03:48 PTAGE: 56 years EKG: Sinus bradycardia Left axis deviation Interventricular conduction disturbance First degree AV block Nonspecific ST-T wave change Compared to PREVIOUS TRACING , the atrial flutter has converted to Sinus rhythm . ST-T changes are, somewhat, more prominant. PREVIOUS TRACIN04/27/2016 17.28.00 DOCTOR: Serge Bell Interpretating Date/Time 02/09/2017 13:53:14
[2017-02-09] MEDS: INSULIN DETEMIR 100 UNITS/ML VIAL SQ SCH (13:59)
[2017-02-09] MEDS: SENNOSIDES 8.6 MG TAB PO SCH (13:59)
[2017-02-09] MEDS: DOCUSATE SODIUM 100 MG CAP PO SCH ×2 (13:59→19:49)
--- NOTE | 2017-02-09 16:27 | HHI.NPPN ---
Subjective History of Present Illness 56 year old with ESRD, HTN Review of Systems Gastrointestinal Gastrointestinal: Abdominal Pain Objective Data Data 02/08/17 02/09/17 19:00 07:00 Intake Total 560 ml Output Total 2150 ml 3 ml Balance -2150 ml 557 ml Intake Oral 560 ml Output Urine Total 150 ml 3 ml Hemodialysis 2000 ml # Bowel Movements 0 Vital Signs Date Time Temp Pulse Resp B/P Pulse Ox O2 Delivery O2 Flow Rate FiO2 02/09/17 14:46 18 02/09/17 12:29 97.9 54 16 138/73 99 02/09/17 12:00 97.3 60 14 168/88 97 Nasal Cannula 2 02/09/17 11:45 59 14 164/91 97 Nasal Cannula 2 02/09/17 11:40 97.3 56 14 137/94 97 Nasal Cannula 2 02/09/17 08:29 93 21 02/09/17 08:05 97.3 46 16 137/66 99 02/09/17 08:00 48 02/09/17 04:06 98.7 65 22 128/78 98 02/09/17 00:16 98.6 54 20 117/63 96 02/08/17 21:22 98.2 58 22 131/72 99 02/08/17 18:10 97.6 55 20 131/61 100 -: 02/08/17 1307 02/08/17 2355 Physical Exam General Appearance: Well Developed, Well Nourished Pulmonary Resp Exam: Clear Bilaterally, Breath Sounds Equal Cardiology CV Exam: Regular, Normal Sinus Rhythm Gastrointestinal/Abdomen GI Exam: Soft Integumentary Skin Exam: Clear Extremeties Extremities Exam: Pedal Pulses Palpable Neurologic Neuro Exam: Alert, Awake Assessment/Plan Problem List: (1) ESRD (end stage renal disease) on dialysis Plan: HD MW F done yesterday UF 2 L s/p ERCP For stone improved Dr. Ramirez to see on Saturday (2) Diabetes mellitus (3) Hypertension (4) Acute hepatitis Lc Arce MD Feb 09, 2017 16:27
[2017-02-10] VITALS (8 sets, daily range): BP systolic 125–152; BP diastolic 62–81; PULSE 57–71; RESP 16–18; TEMP 97.1–98.1; O2SAT 94–100
[2017-02-10] MEDS: diphenhydrAMINE HCL 50 MG/ML VIAL IV PUSH PRN ×4 (03:35→23:22)
[2017-02-10] MEDS: INSULIN ASPART SUPPLEMENTAL SCALE SQ SCH ×4 (06:31→20:49)
--- NOTE | 2017-02-10 07:05 | MR ---
cc: AIME MARTINEZ DATE: 02/09/2017 DATE OF : [address] Arreola PROCEDURE ERCP with sphincterotomy and stones removal from the common bile duct. INDICATION 56-year-old gentleman who came with elevated liver function test found to have common bile duct stones on MRI. PROCEDURE After informing the patient about the procedure and complication consent was signed. The patient was placed on his abdomen in prone position. After intubation by anesthesia, the scope was placed in the mouth advanced under video guidance to the second portion of the duodenum. Ampulla was identified. Cholangiogram was performed. Sphincterotomy was done and six large stones were removed by balloon sweep. At the end of the case, occluded cholangiogram was negative. FINDINGS 1. EGD, limited exam normal. 2. Ampulla was a little bit prominent 3. Pancreatic duct was normal. 4. Common bile duct was very enlarged with multiple filling defects, six stones were retrieved. At the end of case, occluded cholangiogram was negative. RECOMMENDATIONS N.p.o. until the morning. Lap daniele. LFTs tomorrow. Plan per surgery. MD ARIELLE Johnson/ZION /11:29 AM /7:01 AM
[2017-02-10 08:18] LABS: BICARBONATE 27.1 MEQ/L (21.0-32.0); INDIRECT BILIRUBIN 0.3 MG/DL (0.0-0.8); MAGNESIUM 2.2 MG/DL (1.5-2.5); POTASSIUM 3.7 MEQ/L (3.5-5.1); TOTAL BILIRUBIN ADULT 0.6 MG/DL (0.2-1.0)
[2017-02-10] MEDS: CALCIUM ACETATE 667 MG CAP PO SCH ×3 (08:33→17:22)
[2017-02-10] MEDS: DOCUSATE SODIUM 100 MG CAP PO SCH ×2 (08:33→20:48)
[2017-02-10] MEDS: SENNOSIDES 8.6 MG TAB PO SCH (08:33)
[2017-02-10] MEDS: INSULIN DETEMIR 100 UNITS/ML VIAL SQ SCH ×2 (08:35→20:48)
[2017-02-10] MEDS: SODIUM CHLORIDE 0.9% FLUSH 10 ML FLUSH IV FLUSH SCH ×2 (12:32→20:49)
--- NOTE | 2017-02-10 13:42 | HHI.NPPN ---
Subjective History of Present Illness 56 year old with ESRD, HTN Review of Systems Gastrointestinal Gastrointestinal: Abdominal Pain Objective Data Data 02/09/17 02/10/17 19:00 07:00 Intake Total 100 ml 1200 ml Balance 100 ml 1200 ml Intake Oral 1200 ml Other 100 ml # Voids 3 4 Vital Signs Date Time Temp Pulse Resp B/P Pulse Ox O2 Delivery O2 Flow Rate FiO2 02/10/17 08:00 97.9 61 17 146/62 95 02/10/17 04:10 97.1 57 16 147/80 98 02/10/17 00:00 97.5 71 17 125/74 96 02/09/17 20:18 97.5 56 16 131/79 100 02/09/17 20:00 63 02/09/17 18:09 18 02/09/17 17:52 99 21 02/09/17 16:34 97.7 65 17 121/68 96 -: 02/08/17 1307 02/10/17 0712 Physical Exam General Appearance: Well Developed, Well Nourished Pulmonary Resp Exam: Clear Bilaterally, Breath Sounds Equal Cardiology CV Exam: Regular, Normal Sinus Rhythm Gastrointestinal/Abdomen GI Exam: Soft Integumentary Skin Exam: Clear Extremeties Extremities Exam: Pedal Pulses Palpable Neurologic Neuro Exam: Alert, Awake Assessment/Plan Problem List: (1) ESRD (end stage renal disease) on dialysis Plan: HD MW F done Saturday UF 2 L s/p ERCP For stone improved Dr. Ramirez to see on Saturday (2) Diabetes mellitus (3) Hypertension (4) Acute hepatitis Lc Arce MD Feb 10, 2017 13:42
--- NOTE | 2017-02-10 13:46 | HHI.GIFU ---
Subjective Remarks patient is resting in bed, accompanied by family, no nausea, no vomiting or abdomen pain. still with some itching Objective Vitals I&O Vital Signs Date Time Temp Pulse Resp B/P Pulse Ox O2 Delivery O2 Flow Rate FiO2 02/10/17 08:00 97.9 61 17 146/62 95 02/10/17 04:10 97.1 57 16 147/80 98 02/10/17 00:00 97.5 71 17 125/74 96 02/09/17 20:18 97.5 56 16 131/79 100 02/09/17 20:00 63 02/09/17 18:09 18 02/09/17 17:52 99 21 02/09/17 16:34 97.7 65 17 121/68 96 I/O 02/09/17 02/09/17 02/09/17 02/10/17 02/10/17 02/10/17 07:00 15:00 23:00 07:00 15:00 23:00 Intake Total 0 ml 100 ml 720 ml 480 ml Output Total 0 ml Balance 0 ml 100 ml 720 ml 480 ml Intake Oral 0 ml 720 ml 480 ml Other 100 ml Output Urine Total 0 ml # Voids 3 2 2 # Bowel Movements 0 Laboratory Laboratory Tests Test 02/10/17 07:12 Sodium Level 135 Potassium Level 3.7 Chloride Level 96 Carbon Dioxide Level 27.1 Anion Gap 12 Blood Urea Nitrogen 45 Creatinine 11.91 Estimat Glomerular Filtration 5 Rate Random Glucose 222 Calcium Level 9.3 Magnesium Level 2.2 Total Bilirubin 0.6 Direct Bilirubin 0.3 Indirect Bilirubin 0.3 Aspartate Amino Transf 185 (AST/SGOT) Alanine Aminotransferase 671 (ALT/SGPT) Alkaline Phosphatase 484 Total Protein 8.0 Albumin 3.3 Lipase 329 Imaging Last Impressions GI Procedure 02/09/17 0000 Signed Impressions: Service Date/Time: Thursday, February 09, 2017 10:47 - CONCLUSION: ERCP as above. Delma Obando MD Cholangiopancreatography MRI 02/08/17 0000 Signed Impressions: Service Date/Time: Wednesday, February 08, 2017 10:18 - CONCLUSION: Gallstones and cystic duct stones with diffuse gallbladder wall thickening. Intra-and extrahepatic biliary ductal dilatation with multiple small stones in the distal CBD. Dawit Hernandez MD Abdomen/Pelvis CT 02/07/17 7736 Signed Impressions: Service Date/Time: January 23:53 - CONCLUSION: 1. No evidence of calcified renal stones or hydronephrosis. 2. Chronic gallbladder disease not significantly changed compared to the prior study. 3. No acute intra-abdominal pathology. Gerard Pitts MD Physical Exam HEENT: normocephalic; atraumatic; no jaundice. Throat is clear. NECK: Neck is supple, no JVD, no lymphadenopathy. CHEST: Chest is clear to auscultation and percussion. CARDIAC: Regular rate and rhythm with no murmur gallop or rubs. ABDOMEN: Soft, nondistended, nontender; no hepatosplenomegaly; bowel sounds are present in all four quadrants. EXTREMITIES: No clubbing, cyanosis, or edema. SKIN: Normal; no rash; no jaundice. MULTIFOCAL LENS ASSEMBLER: No focal deficits; alert and oriented times three. Assessment and Plan Plan - Choledocholithiasis- S/P ERCP with sphincterotomy an stones removal from the CBD (02/09/17)---> Ampulla was a little prominent, pancreatic duct normal, CBD was very enlarged with six stones were retrieved. GS consult - Acute transaminitis- Marked improvement in LFTs, most likely Secondary to Choledocholithiasis ERCP as above, Hepatitis panel pending, Fe 2316, iron sats. 59.5, alpha-antitrypsin 262, rest of labs pending CT done . No evidence of calcified renal stones or hydronephrosis. 2. Chronic gallbladder disease not significantly changed compared to the prior study. 3. No acute intra-abdominal pathology. He has been having severe RUQ pain associated with nausea, vomiting, sever itching and dark urine. He is not sure of duration of this pain, but it became unbearable yesterday. He has been having severe itching for past few days. He was sent to [facility] about 3 days ago from dialysis for itching, and that's when he learned about the elevation of LFTs and was told to f/u with GI, but hasn't made a f/u appt. yet. He reports that he was having sweating and cold, no fever or chills. He reports chronic constipation but no change in bowel habits. He reports a loss in appetite. Tylenol levels negative, he drinks on occasions, he denies NSAIDs or new medications or abx. - Acute pancreatitis- resolved lipase 329, no pancreatitis on ct, - Severe itching- Benadryl - Hep-c s/p tx Hep-c PCR pending - ESRD- HD (M, W, F) - A-fib, HTN per attending Plan: - Full liquid diet - Hfe - Monitor labs - Await hepatitis panel/ hep-c PCR, ceruloplasmin, celiac, KAMRAN, AMA, ASMA - GS consulted - IV hydration - Cont. Benadryl - Patient seen and examined by Dr. Griffin and myself and this note is written on his behalf. Marcus Marino Feb 10, 2017 13:46
--- NOTE | 2017-02-10 15:38 | HHI.PR ---
Subjective Remarks The patient was resting in bed comfortably. Family at the bedside. He wanted to know when to expect the gallbladder removal. He had no acute complaints. Tolerating a diet, would like something more filling. Objective Vitals Vital Signs Date Time Temp Pulse Resp B/P Pulse Ox O2 Delivery O2 Flow Rate FiO2 02/10/17 12:06 98.1 64 18 142/76 94 02/10/17 08:00 97.9 61 17 146/62 95 02/10/17 04:10 97.1 57 16 147/80 98 02/10/17 00:00 97.5 71 17 125/74 96 02/09/17 20:18 97.5 56 16 131/79 100 02/09/17 20:00 63 02/09/17 18:09 18 02/09/17 17:52 99 21 02/09/17 16:34 97.7 65 17 121/68 96 I/O 02/09/17 02/09/17 02/09/17 02/10/17 02/10/17 02/10/17 07:00 15:00 23:00 07:00 15:00 23:00 Intake Total 0 ml 100 ml 720 ml 480 ml Output Total 0 ml Balance 0 ml 100 ml 720 ml 480 ml Intake Oral 0 ml 720 ml 480 ml Other 100 ml Output Urine Total 0 ml # Voids 3 2 2 # Bowel Movements 0 Result Diagram: 02/08/17 1307 02/10/17 0712 Imaging Last Impressions GI Procedure 02/09/17 0000 Signed Impressions: Service Date/Time: Thursday, February 09, 2017 10:47 - CONCLUSION: ERCP as above. K. Jae Obando MD Cholangiopancreatography MRI 02/08/17 0000 Signed Impressions: Service Date/Time: Wednesday, February 08, 2017 10:18 - CONCLUSION: Gallstones and cystic duct stones with diffuse gallbladder wall thickening. Intra-and extrahepatic biliary ductal dilatation with multiple small stones in the distal CBD. Dawit Hernandez MD Abdomen/Pelvis CT 02/07/17 2323 Signed Impressions: Service Date/Time: January 23:53 - CONCLUSION: 1. No evidence of calcified renal stones or hydronephrosis. 2. Chronic gallbladder disease not significantly changed compared to the prior study. 3. No acute intra-abdominal pathology. Gerard Pitts MD Objective Remarks GENERAL: This is a well-nourished, well-developed patient, in no apparent distress. SKIN: No rashes, ecchymoses or lesions. Cool and dry. HEAD: Atraumatic. Normocephalic. No temporal or scalp tenderness. EYES: No scleral icterus. No injection or drainage. ENT: Nose without bleeding, purulent drainage or septal hematoma. Airway patent. NECK: Trachea midline. No JVD CARDIOVASCULAR: Regular rate and rhythm without murmurs, gallops, or rubs. RESPIRATORY: Clear to auscultation. Breath sounds equal bilaterally. No wheezes , rales, or rhonchi. GASTROINTESTINAL: Abdomen soft, non-tender, distended but soft. No guarding. MUSCULOSKELETAL: Extremities without clubbing, cyanosis, or edema. NEUROLOGICAL: Awake and alert. Motor and sensory grossly within normal limits. Normal speech. PSYCH: Mood and affect appropriate. Procedures ERCP 02/09. Medications and IVs Current Medications Medications (Trade) Dose Ordered Sig/Katelyn Route Start Time Stop Time Status Last Admin (NS Flush) 2 ml UNSCH PRN IV FLUSH 02/08/17 02:15 (NS Flush) 2 ml BID IV FLUSH 02/08/17 09:00 02/10/17 12:32 (Zofran Inj) 4 mg Q6H PRN IVP 02/08/17 02:15 (Narcan Inj) 0.4 mg UNSCH PRN IV 02/08/17 02:15 (Benadryl Inj) 50 mg Q4H PRN IV PUSH 02/08/17 07:00 02/10/17 12:30 (D50w (Vial) Inj) 25 ml UNSCH PRN IV PUSH 02/08/17 07:00 (Glucagon Inj) 1 mg UNSCH PRN OTHER 02/08/17 07:00 Hydroxyzine HCl 25 mg 25 mg Q8H PRN PO 02/08/17 12:00 02/08/17 22:38 (NS 1000 ml Inj) 1,000 ml @ 0 mls/hr Q0M PRN IV 02/08/17 11:53 Heparin Sodium (Porcine) 8000 units 8,000 units UNSCH PRN IVF 02/08/17 12:00 Sodium Chloride 1,000 ml @ 200 mls/hr Q5H PRN IV 02/08/17 11:53 (NS 1000 ml Inj) 1,000 ml @ 0 mls/hr Q0M PRN IV 02/08/17 11:53 (Mannitol Inj) 12.5 gm UNSCH PRN IV 02/08/17 12:00 (Albumin 25% Inj) 25 gm UNSCH PRN IV 02/08/17 12:00 (NS Flush) 5 ml UNSCH PRN IV FLUSH 02/08/17 12:00 (Heparin Inj) UNSCH PRN .XX 02/08/17 12:00 (Gentamicin (Dialysis) Inj) 20 mg UNSCH PRN IV 02/08/17 12:00 (Zofran Inj) 4 mg UNSCH PRN IV 02/08/17 12:00 (Tylenol) 650 mg UNSCH PRN PO 02/08/17 12:00 (Benadryl) 25 mg UNSCH PRN PO 02/08/17 12:00 02/09/17 13:45 (Nitrostat Sl) 0.4 mg UNSCH PRN SL 02/08/17 12:00 (Catapres) 0.1 mg UNSCH PRN PO 02/08/17 12:00 (Epogen Inj) 6,000 units UNSCH PRN IV 02/08/17 12:00 02/08/17 15:51 (Gelfoam 12 Mm/7 Mm Top) 1 foam UNSCH PRN TOP 02/08/17 12:00 02/08/17 15:52 (Xanax) 0.25 mg Q6H PRN PO 02/08/17 14:30 (Phoslo) 1,334 mg TID PO 02/08/17 18:00 02/10/17 12:30 (Roxicodone) 5 mg Q4H PRN PO 02/08/17 14:30 02/08/17 21:10 (Roxicodone) 15 mg Q4H PRN PO 02/08/17 14:30 02/10/17 03:36 (Catapres) 0.1 mg Q6H PRN PO 02/08/17 14:30 (Ventolin Hfa Inh) 1 puff Q4H PRN INH 02/08/17 14:47 (Colace) 100 mg BID PO 02/09/17 12:45 02/10/17 08:33 (Senokot) 17.2 mg DAILY PO 02/09/17 12:45 02/10/17 08:33 (Levemir Inj) 25 units HS SQ 02/10/17 21:00 A/P Problem List: (1) Renal failure ICD Code: N19 Status: Chronic Assessment and Plan Choledocholithiasis/ Pancreatitis GI was consulted. MRCP showed: Gallstones and cystic duct stones with diffuse gallbladder wall thickening; Intra-and extrahepatic biliary ductal dilatation with multiple small stones in the distal CBD. ERCP was performed 02/09/17 and 6 stones were removed. - Full liquid diet per GI. - follow LFTs, lipase. Improved. - pain meds and antiemetics as needed. - Gen. surgery consult pending. Hypertension Blood pressure has been elevated, likely exacerbated by pain. Stable. - clonidine as needed. - pain control. Diabetes Glucose poorly controlled. - insulin sliding scale. - start Levemir 25 units HS. ESRD On hemodialysis. Nephrology consulted for hemodialysis. - dialysis per nephrology. PPx: Heparin. Discharge Planning Awaiting surgical eval. Poli Arreola DO Feb 10, 2017 15:38
[2017-02-10] MEDS ORDERED: metroNIDAZOLE 500 MG INJ 100 ML IV SCH (15:45)
[2017-02-10] MEDS ORDERED: ceFAZolin 2 GM PREMIX 50 ML IV SCH (15:45)
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
[2017-02-10] MEDS: hydrOXYzine HCL 25 MG TAB PO PRN (20:51)
[2017-02-10 23:52] LABS: HCV RNA PCR IU/ML LESS THAN 15 IU/mL (()); HCV RNA PCR LOGIU/ML LESS THAN 1.18 (()); MITOCHONDRIAL ABS LESS THAN 20.0 U (())
[2017-02-11] VITALS: BP 140/73; PULSE 58; RESP 20; TEMP 97; O2SAT 95
[2017-02-11] MEDS ORDERED: POVIDONE IODINE 5% (ANTISEPSIS KIT) 4 APPLICATIONS EACH NARE PRN (02:00)
[2017-02-11] MEDS ORDERED: INSULIN HUMAN REGULAR 1,000 UNITS/10 ML VIAL SQ PRN (02:00)
[2017-02-11] MEDS ORDERED: METOPROLOL TARTRATE 25 MG TAB PO PRN (02:00)
[2017-02-11] MEDS ORDERED: CHLORHEXIDINE GLUCONATE 2 % 1 PACK (2 CLOTHS) TOPICAL PRN (02:00)
[2017-02-11] MEDS ORDERED: SODIUM CHLORID 0.9% 500 ML IV PRN (02:00)
[2017-02-11] MEDS ORDERED: LACTATED RINGER'S 1000 ML IV PRN (02:00)
[2017-02-11 04:00] VITALS: BP 117/69; PULSE 70; RESP 20; TEMP 98.4; O2SAT 96
[2017-02-11] MEDS: INSULIN ASPART SUPPLEMENTAL SCALE SQ SCH ×4 (06:22→21:27)
[2017-02-11 07:34] LABS: APTT (PATIENT) 26.1 SEC (24.3-30.1)
[2017-02-11 07:57] LABS: BICARBONATE 26.2 MEQ/L (21.0-32.0); MAGNESIUM 2.1 MG/DL (1.5-2.5); POTASSIUM 3.8 MEQ/L (3.5-5.1)
[2017-02-11 08:28] VITALS: BP 123/69; PULSE 53; RESP 18; TEMP 97.6; O2SAT 95
--- NOTE | 2017-02-11 08:57 | HHI.GIFU ---
Subjective Remarks Resting in bed. NPO for procedure today. Denies any fever, chills, nausea, vomiting, or abdominal pain. (Nhi Baig) Objective Vitals I&O Vital Signs Date Time Temp Pulse Resp B/P Pulse Ox O2 Delivery O2 Flow Rate FiO2 02/11/17 04:00 98.4 70 20 117/69 96 02/11/17 00:00 97.0 58 20 140/73 95 02/10/17 21:46 94 21 02/10/17 20:47 61 02/10/17 20:00 97.6 61 17 134/73 99 02/10/17 16:38 97.7 68 16 152/81 100 02/10/17 12:06 98.1 64 18 142/76 94 I/O 02/10/17 02/10/17 02/10/17 02/11/17 02/11/17 02/11/17 07:00 15:00 23:00 07:00 15:00 23:00 Intake Total 480 ml 960 ml Balance 480 ml 960 ml Intake Oral 480 ml 960 ml # Voids 2 3 1 # Bowel Movements 0 Laboratory Laboratory Tests Test 02/11/17 06:47 Prothrombin Time 11.0 Prothromb Time International 1.0 Ratio Activated Partial 26.1 Thromboplast Time Sodium Level 135 Potassium Level 3.8 Chloride Level 95 Carbon Dioxide Level 26.2 Anion Gap 14 Blood Urea Nitrogen 50 Creatinine 13.24 Estimat Glomerular Filtration 5 Rate Random Glucose 174 Calcium Level 9.4 Magnesium Level 2.1 Imaging Last Impressions GI Procedure 02/09/17 0000 Signed Impressions: Service Date/Time: Thursday, February 09, 2017 10:47 - CONCLUSION: ERCP as above. Delma Obando MD Cholangiopancreatography MRI 02/08/17 0000 Signed Impressions: Service Date/Time: Wednesday, February 08, 2017 10:18 - CONCLUSION: Gallstones and cystic duct stones with diffuse gallbladder wall thickening. Intra-and extrahepatic biliary ductal dilatation with multiple small stones in the distal CBD. Dawti Hernandez MD Abdomen/Pelvis CT 02/07/17 0794 Signed Impressions: Service Date/Time: January 23:53 - CONCLUSION: 1. No evidence of calcified renal stones or hydronephrosis. 2. Chronic gallbladder disease not significantly changed compared to the prior study. 3. No acute intra-abdominal pathology. Gerard Pitts MD Physical Exam HEENT: Normocephalic; atraumatic; no jaundice. CHEST: CTA CARDIAC: RRR ABDOMEN: Soft, nondistended, nontender; no hepatosplenomegaly; bowel sounds are present in all four quadrants. EXTREMITIES: No clubbing, cyanosis, or edema. SKIN: Normal; no rash; no jaundice. CARE ATTENDANT: No focal deficits; alert and oriented times three. (Nhi Baig [facility]) Assessment and Plan Plan ASSESSMENT: - Choledocholithiasis/Cholelithiasis. CT Scan abdomen and pelvis (02/08/17)----- > 1. No evidence of calcified renal stones or hydronephrosis. 2. Chronic gallbladder disease not significantly changed compared to the prior study. 3. No acute intra- abdominal pathology. MRCP (02/08/17)-----> Gallstones and cystic duct stones with diffuse gallbladder wall thickening. Intra-and extrahepatic biliary ductal dilatation with multiple small stones in the distal CBD. S/P ERCP with sphincterotomy an stones removal from the CBD (02/09/17)---> Ampulla was a little prominent, pancreatic duct normal, CBD was very enlarged with six stones were retrieved. LFTs were4 trending down yesterday, not checked today. Plan is for Lap Cholecystectomy with possible IOC today with Dr. [place]. - Acute transaminitis, likely secondary to above. Hepatitis profile pending, but HCV viral load is negative, KAMRAN pending, AMA < 20.0, ASMA pending, Celiac pending, Ferritin 2316, iron sat 59.5 %, Alpha-antitrypsin 262, Ceruloplasmin pending. Hfe gene pending. LFTs were trending down as of yesterday. - Acute pancreatitis. RESOLVED. no pancreatitis on ct, - Hx Hep-c, s/p tx. Hep-c PCR undetectable. - ESRD- HD (M, W, F) - A-fib, HTN per attending Plan: - NPO for surgery - Await ceruloplasmin, KAMRAN, ASMA, Celiac, Hfe Gene - AFP level - Monitor labs - Supportive care - GS following, plan for Lap. Radha with possible IOC today. - Further recommendations to follow based on results of above - Patient seen and examined by Dr. Patiño and myself and this note is written on her behalf. (Nhi Baig) Physician Comments agree with above ([place] Patiño MD) Nhi Baig Feb 11, 2017 08:57 [place] Patiño MD Feb 11, 2017 16:08
[2017-02-11] MEDS: CALCIUM ACETATE 667 MG CAP PO SCH ×2 (09:00→13:00)
[2017-02-11] MEDS: SENNOSIDES 8.6 MG TAB PO SCH (09:00)
[2017-02-11] MEDS: SODIUM CHLORIDE 0.9% FLUSH 10 ML FLUSH IV FLUSH SCH ×2 (09:00→21:32)
[2017-02-11] MEDS: DOCUSATE SODIUM 100 MG CAP PO SCH ×2 (09:00→21:25)
[2017-02-11] MEDS: EPOETIN ALFA 10,000 UNITS/ML VIAL IV PRN (11:30)
[2017-02-11] MEDS: GELATIN 12 MM/7 MM FOAM TOP PRN (11:31)
[2017-02-11] MEDS ORDERED: BUPIVACAINE/EPINEPHRINE 0.25% PF 30 ML VIAL ONE (12:15)
[2017-02-11] MEDS ORDERED: MIDAZOLAM HCL 2 MG/2 ML VIAL ONE (12:34)
[2017-02-11] MEDS ORDERED: VANCOMYCIN HCL 1000 MG VIAL ONE (12:47)
[2017-02-11] MEDS ORDERED: SODIUM CHLOR 0.9% 250 ML INJ 250 ML ONE (12:48)
[2017-02-11] MEDS ORDERED: PROPOFOL 200 MG/20 ML AMP IV ONE (14:12)
[2017-02-11] MEDS ORDERED: ONDANSETRON HCL 4 MG/2 ML VIAL IV PUSH ONE (14:13)
[2017-02-11] MEDS ORDERED: PHENYLEPH/NS 1000 MCG/10 ML SYR IV ONE (14:13)
[2017-02-11] MEDS ORDERED: SODIUM CHLOR 0.9% 1000 ML INJ 1,000 ML IV ONE (14:14)
[2017-02-11] MEDS ORDERED: fentaNYL CITRATE 250 MCG/5 ML AMP ONE (14:27)
[2017-02-11 16:03] LABS: BLOOD GAS BASE EXCESS -0.5 mmol/L (-2-2); BLOOD GAS CARBOXYHEMOGLOBIN 1.4 % (0-4); BLOOD GAS HCO3 23 mmol/L (22-26); BLOOD GAS METHEMOGLOBIN 1.3 % (0-2); BLOOD GAS O2 HGB SATURATION 97 % (90-100); BLOOD GAS OXYGEN CONTENT 16.2 Vol % (12.0-20.0); BLOOD GAS PCO2 31 mmHg (38-42); BLOOD GAS PO2 263 mmHg (61-120); BLOOD GAS TOTAL HGB 11.4 G/DL (12.0-16.0); TEMP CORR TO 98.6
[2017-02-11 16:04] LABS: CRITICAL VALUE NO; FIO2 51 %; OXYGEN DEVICE O.R. ABG; STAT YES
[2017-02-11 16:23] LABS: HEMATOCRIT 32.3 % (39.0-51.0)
--- NOTE | 2017-02-11 16:43 | HHI.PR ---
Subjective Remarks The patient went to dialysis and then to surgery. Discussed with nursing about making sure he went to dialysis prior to surgery. Objective Vitals Vital Signs Date Time Temp Pulse Resp B/P Pulse Ox O2 Delivery O2 Flow Rate FiO2 02/11/17 08:28 97.6 53 18 123/69 95 02/11/17 04:00 98.4 70 20 117/69 96 02/11/17 00:00 97.0 58 20 140/73 95 02/10/17 21:46 94 21 02/10/17 20:47 61 02/10/17 20:00 97.6 61 17 134/73 99 I/O 02/10/17 02/10/17 02/10/17 02/11/17 02/11/17 02/11/17 07:00 15:00 23:00 07:00 15:00 23:00 Intake Total 480 ml 960 ml Output Total 3000 ml Balance 480 ml 960 ml -3000 ml Intake Oral 480 ml 960 ml Hemodialysis 3000 ml # Voids 2 3 1 # Bowel Movements 0 Result Diagram: 02/11/17 1541 02/11/17 0647 Imaging Last Impressions GI Procedure 02/09/17 0000 Signed Impressions: Service Date/Time: Thursday, February 09, 2017 10:47 - CONCLUSION: ERCP as above. Delma Obando MD Cholangiopancreatography MRI 02/08/17 0000 Signed Impressions: Service Date/Time: Wednesday, February 08, 2017 10:18 - CONCLUSION: Gallstones and cystic duct stones with diffuse gallbladder wall thickening. Intra-and extrahepatic biliary ductal dilatation with multiple small stones in the distal CBD. Dawit Hernandez MD Abdomen/Pelvis CT 02/07/17 2323 Signed Impressions: Service Date/Time: January 23:53 - CONCLUSION: 1. No evidence of calcified renal stones or hydronephrosis. 2. Chronic gallbladder disease not significantly changed compared to the prior study. 3. No acute intra-abdominal pathology. Gerard Pitts MD Objective Remarks GENERAL: This is a well-nourished, well-developed patient, in no apparent distress. SKIN: No rashes, ecchymoses or lesions. Cool and dry. HEAD: Atraumatic. Normocephalic. No temporal or scalp tenderness. EYES: No scleral icterus. No injection or drainage. ENT: Nose without bleeding, purulent drainage or septal hematoma. Airway patent. NECK: Trachea midline. No JVD CARDIOVASCULAR: Regular rate and rhythm without murmurs, gallops, or rubs. RESPIRATORY: Clear to auscultation. Breath sounds equal bilaterally. No wheezes , rales, or rhonchi. GASTROINTESTINAL: Abdomen soft, non-tender, distended but soft. No guarding. MUSCULOSKELETAL: Extremities without clubbing, cyanosis, or edema. NEUROLOGICAL: Awake and alert. Motor and sensory grossly within normal limits. Normal speech. PSYCH: Mood and affect appropriate. Procedures ERCP 02/09. Cholecystectomy 02/11. Medications and IVs Current Medications Medications (Trade) Dose Ordered Sig/Katelyn Route Start Time Stop Time Status Last Admin (NS Flush) 2 ml UNSCH PRN IV FLUSH 02/08/17 02:15 (NS Flush) 2 ml BID IV FLUSH 02/08/17 09:00 02/11/17 09:00 (Zofran Inj) 4 mg Q6H PRN IVP 02/08/17 02:15 (Narcan Inj) 0.4 mg UNSCH PRN IV 02/08/17 02:15 (Benadryl Inj) 50 mg Q4H PRN IV PUSH 02/08/17 07:00 02/10/17 23:22 (D50w (Vial) Inj) 25 ml UNSCH PRN IV PUSH 02/08/17 07:00 (Glucagon Inj) 1 mg UNSCH PRN OTHER 02/08/17 07:00 Hydroxyzine HCl 25 mg 25 mg Q8H PRN PO 02/08/17 12:00 02/10/17 20:51 (NS 1000 ml Inj) 1,000 ml @ 0 mls/hr Q0M PRN IV 02/08/17 11:53 Heparin Sodium (Porcine) 8000 units 8,000 units UNSCH PRN IVF 02/08/17 12:00 Sodium Chloride 1,000 ml @ 200 mls/hr Q5H PRN IV 02/08/17 11:53 (NS 1000 ml Inj) 1,000 ml @ 0 mls/hr Q0M PRN IV 02/08/17 11:53 (Mannitol Inj) 12.5 gm UNSCH PRN IV 02/08/17 12:00 (Albumin 25% Inj) 25 gm UNSCH PRN IV 02/08/17 12:00 (NS Flush) 5 ml UNSCH PRN IV FLUSH 02/08/17 12:00 (Heparin Inj) UNSCH PRN .XX 02/08/17 12:00 (Gentamicin (Dialysis) Inj) 20 mg UNSCH PRN IV 02/08/17 12:00 (Zofran Inj) 4 mg UNSCH PRN IV 02/08/17 12:00 (Tylenol) 650 mg UNSCH PRN PO 02/08/17 12:00 (Benadryl) 25 mg UNSCH PRN PO 02/08/17 12:00 02/09/17 13:45 (Nitrostat Sl) 0.4 mg UNSCH PRN SL 02/08/17 12:00 (Catapres) 0.1 mg UNSCH PRN PO 02/08/17 12:00 (Epogen Inj) 6,000 units UNSCH PRN IV 02/08/17 12:00 02/11/17 11:30 (Gelfoam 12 Mm/7 Mm Top) 1 foam UNSCH PRN TOP 02/08/17 12:00 02/11/17 11:31 (Xanax) 0.25 mg Q6H PRN PO 02/08/17 14:30 (Phoslo) 1,334 mg TID PO 02/08/17 18:00 02/10/17 17:22 (Roxicodone) 5 mg Q4H PRN PO 02/08/17 14:30 02/08/17 21:10 (Roxicodone) 15 mg Q4H PRN PO 02/08/17 14:30 02/10/17 17:22 (Catapres) 0.1 mg Q6H PRN PO 02/08/17 14:30 (Ventolin Hfa Inh) 1 puff Q4H PRN INH 02/08/17 14:47 (Colace) 100 mg BID PO 02/09/17 12:45 02/10/17 20:48 (Senokot) 17.2 mg DAILY PO 02/09/17 12:45 02/10/17 08:33 Insulin Detemir 25 units 25 units HS SQ 02/10/17 21:00 02/10/17 20:48 Lactated Ringer's 1,000 ml @ 30 mls/hr Q24H PRN IV 02/11/17 02:00 02/14/17 01:59 (NS 500 ml Inj) 500 ml @ 30 mls/hr [id number] PRN IV 02/11/17 02:00 02/14/17 01:59 A/P Problem List: (1) Renal failure ICD Code: N19 Status: Chronic Assessment and Plan Choledocholithiasis/ Pancreatitis GI was consulted. MRCP showed: Gallstones and cystic duct stones with diffuse gallbladder wall thickening; Intra-and extrahepatic biliary ductal dilatation with multiple small stones in the distal CBD. ERCP was performed 02/09/17 and 6 stones were removed. General surgery consult appreciated. The patient went for cholecystectomy 02/11/17. - The patient is currently undergoing surgery. - follow LFTs. - pain meds and antiemetics as needed. - Wound care and anticoagulation per surgery. Hypertension Blood pressure has been elevated, likely exacerbated by pain. Stable. - clonidine as needed. - pain control. Diabetes Glucose well controlled 02/11. - insulin sliding scale. - start Levemir 25 units HS. ESRD On hemodialysis. Nephrology consulted for hemodialysis. - dialysis per nephrology. PPx: Heparin. Discharge Planning Awaiting surgical clearance. Poli Arreola DO Feb 11, 2017 16:43
[2017-02-11 17:05] LABS: BICARBONATE 26.3 MEQ/L (21.0-32.0); POTASSIUM 3.9 MEQ/L (3.5-5.1)
[2017-02-11] MEDS ORDERED: *morphine SULFATE 8 MG/ML PERIprocedure ONLY ONE (17:46)
[2017-02-11] MEDS ORDERED: *ENALAPRILAT 1.25 MG/ML VIAL PERIprocedural Use ONLY ONE (17:47)
--- NOTE | 2017-02-11 17:49 | RADRPT ---
EXAM DATE/TIME: 02/11/2017 18:27 [facility] COMPARISON: CHEST SINGLE AP, January 08, 2016, 11:22. INDICATIONS : Central line placement. MEDICAL HISTORY : Hypertension. Congestive heart failure. Diabetes mellitus type II. SURGICAL HISTORY : None. ENCOUNTER: Initial ACUITY: 1 day PAIN SCORE: Non-responsive. LOCATION: Bilateral chest FINDINGS: The lungs are clear without infiltrate, nodule, or mass. There is no appreciable pleural effusion fo r technique. Heart and mediastinum are unremarkable. Right IJ line is present with tip overlapping t he expected region of the SVC. There is no pneumothorax for technique. IMPRESSION: No acute cardiopulmonary disease. Delma Obando MD on February 11, 2017 at 17:45 Board Certified Radiologist. This report was verified electronically.
[2017-02-11 17:53] LABS: HEPATITIS C RNA GENOTYPE NOT DETECTED (())
[2017-02-11] MEDS ORDERED: DO NOT ADM ANY ANTICOAGULANT DRUGS PRN (18:00)
[2017-02-11 18:44] VITALS: BP 140/59; PULSE 67; RESP 18; TEMP 97.7; O2SAT 100
--- NOTE | 2017-02-11 20:33 | HHI.NPPN ---
Subjective History of Present Illness 56-year-old male known to me from before with past medical history of hypertension, diabetes mellitus, chronic obstructive pulmonary disease, atrial fibrillation and end-stage renal disease on hemodialysis three times per week who came to the hospital with a complaint of abdominal pain, nausea, vomiting and loose bowel motion. I was called to see the patient for the management of dialysis. He has been on hemodialysis Saturday, Saturday and Saturday. Additional Remarks Patient is alert, seen in RR, has mild abd. pain,. no SOB. Review of Systems General Constitutional: Fatigue Gastrointestinal Gastrointestinal: Abdominal Pain, Nausea & Vomiting Objective Data Data 02/10/17 02/11/17 19:00 07:00 Intake Total 960 ml Balance 960 ml Intake Oral 960 ml # Voids 3 1 # Bowel Movements 0 Vital Signs Date Time Temp Pulse Resp B/P Pulse Ox O2 Delivery O2 Flow Rate FiO2 02/11/17 18:44 97.7 67 18 140/59 100 02/11/17 18:15 99.0 69 14 163/72 98 Nasal Cannula 2 02/11/17 18:00 71 14 169/69 98 Nasal Cannula 2 02/11/17 17:45 68 14 198/98 99 Nasal Cannula 2 02/11/17 17:30 70 15 152/52 99 Nasal Cannula 2 02/11/17 17:15 99.0 69 15 99 Nasal Cannula 2 150/58 02/11/17 08:28 97.6 53 18 123/69 95 02/11/17 04:00 98.4 70 20 117/69 96 02/11/17 00:00 97.0 58 20 140/73 95 02/10/17 21:46 94 21 02/10/17 20:47 61 -: 02/11/17 1541 02/11/17 1541 Physical Exam General Appearance: Well Developed, Well Nourished, No Acute Distress, Comfortable Pulmonary Resp Exam: Clear Bilaterally, Breath Sounds Equal Cardiology CV Exam: Regular, Normal Sinus Rhythm Gastrointestinal/Abdomen GI Exam: Soft, Bowel Sounds Present, Distended Integumentary Skin Exam: Clear Extremeties Extremities Exam: Moderate Edema, Pitting Edema Neurologic Neuro Exam: Alert, Awake, Oriented Psychiatric Psych Exam: Appropriate Responses Assessment/Plan Problem List: (1) ESRD (end stage renal disease) on dialysis (2) Diabetes mellitus (3) Hypertension (4) Acute hepatitis Plan Patient seen in RR, has Lap Cholecystectomy done. Tolerated the procedure well. BP is stable. HD was done in AM. Continue HD, MWF. Problem Qualifiers (1) Diabetes mellitus: (2) Hypertension: Qualified Code: I10 - Essential hypertension Ambrose Ramirez MD Feb 11, 2017 20:33
[2017-02-11 20:48] VITALS: BP 118/56; PULSE 79; RESP 19; TEMP 96.9; O2SAT 97
[2017-02-11 20:56] VITALS: O2SAT 100
[2017-02-11] MEDS: INSULIN DETEMIR 100 UNITS/ML VIAL SQ SCH (21:27)
[2017-02-12] VITALS (8 sets, daily range): BP systolic 104–140; BP diastolic 49–64; PULSE 55–85; RESP 18; TEMP 97.9–99.4; O2SAT 94–98
[2017-02-12] MEDS: INSULIN ASPART SUPPLEMENTAL SCALE SQ SCH ×4 (05:34→20:15)
[2017-02-12] MEDS: HYDROmorphone HCL PF 1 MG/ML VIAL IV PUSH PRN ×3 (05:34→12:22)
[2017-02-12 06:02] LABS: MEAN CELL VOLUME 92.2 FL (80.0-100.0); MEAN CORPUSCULAR HEMOGLOBIN 29.3 PG (27.0-34.0); MEAN CORPUSCULAR HGB CONC 31.8 % (32.0-36.0); PLATELET COUNT 250 TH/MM3 (150-450); RED BLOOD COUNT 3.36 MIL/MM3 (4.50-5.90); RED CELL DISTRIBUTION WIDTH 15.1 % (11.6-17.2); REVIEW FLAG FINAL; WHITE BLOOD COUNT 12.4 TH/MM3 (4.0-11.0)
[2017-02-12 06:49] LABS: BICARBONATE 29.3 MEQ/L (21.0-32.0); INDIRECT BILIRUBIN 0.2 MG/DL (0.0-0.8); POTASSIUM 5.2 MEQ/L (3.5-5.1); TOTAL BILIRUBIN ADULT 0.5 MG/DL (0.2-1.0)
[2017-02-12] MEDS: SENNOSIDES 8.6 MG TAB PO SCH (08:41)
[2017-02-12] MEDS: DOCUSATE SODIUM 100 MG CAP PO SCH ×2 (08:41→20:01)
[2017-02-12] MEDS: CALCIUM ACETATE 667 MG CAP PO SCH ×3 (08:41→18:49)
[2017-02-12] MEDS: SODIUM CHLORIDE 0.9% FLUSH 10 ML FLUSH IV FLUSH SCH ×2 (08:50→20:01)
[2017-02-12] MEDS ORDERED: OXYC1TAB63 PO (11:08)
--- NOTE | 2017-02-12 12:52 | HHI.PR ---
Subjective Subjective Notes Doing well post op. No complaints. Objective Vitals/I&O Vital Signs Date Time Temp Pulse Resp B/P Pulse Ox O2 Delivery O2 Flow Rate FiO2 02/12/17 08:07 94 21 02/12/17 08:00 97.9 63 18 140/49 02/11/17 20:56 Nasal Cannula 2.00 Labs Laboratory Tests Test 02/11/17 02/11/17 02/12/17 15:41 15:52 05:30 Hemoglobin 10.3 9.9 Hematocrit 32.3 31.0 Sodium Level 136 137 Potassium Level 3.9 5.2 Chloride Level 99 99 Carbon Dioxide Level 26.3 29.3 Anion Gap 11 9 Blood Urea Nitrogen 35 41 Creatinine 10.15 11.62 Estimat Glomerular Filtration 6 5 Rate Random Glucose 171 212 Calcium Level 8.6 8.7 Blood Gas Puncture Site Blood Gas Patient Temperature 98.6 Blood Gas HCO3 23 Blood Gas Base Excess -0.5 Blood Gas Oxygen Saturation 97 Arterial Blood pH 7.48 Arterial Blood Partial 31 Pressure CO2 Arterial Blood Partial 263 Pressure O2 Arterial Blood Oxygen Content 16.2 Arterial Blood 1.4 Carboxyhemoglobin Arterial Blood Methemoglobin 1.3 Blood Gas Hemoglobin 11.4 Oxygen Delivery Device O.R. ABG Blood Gas Inspired Oxygen 51 White Blood Count 12.4 Red Blood Count 3.36 Mean Corpuscular Volume 92.2 Mean Corpuscular Hemoglobin 29.3 Mean Corpuscular Hemoglobin 31.8 Concent Red Cell Distribution Width 15.1 Platelet Count 250 Mean Platelet Volume 9.3 Magnesium Level 2.0 Total Bilirubin 0.5 Direct Bilirubin 0.3 Indirect Bilirubin 0.2 Aspartate Amino Transf 80 (AST/SGOT) Alanine Aminotransferase 340 (ALT/SGPT) Alkaline Phosphatase 332 Total Protein 7.2 Albumin 2.9 Radiology Last Impressions GI Procedure 02/09/17 0000 Signed Impressions: Service Date/Time: Thursday, February 09, 2017 10:47 - CONCLUSION: ERCP as above. Delma Obando MD Cholangiopancreatography MRI 02/08/17 0000 Signed Impressions: Service Date/Time: Wednesday, February 08, 2017 10:18 - CONCLUSION: Gallstones and cystic duct stones with diffuse gallbladder wall thickening. Intra-and extrahepatic biliary ductal dilatation with multiple small stones in the distal CBD. Dawit Hernandez MD Abdomen/Pelvis CT 02/07/17 1110 Signed Impressions: Service Date/Time: January 23:53 - CONCLUSION: 1. No evidence of calcified renal stones or hydronephrosis. 2. Chronic gallbladder disease not significantly changed compared to the prior study. 3. No acute intra-abdominal pathology. Gerard Pitts MD Narrative Exam NAD, ambulating in chew Abd: mild distention, inc c/d/i, min post op ttp, anibal ss A/P Assessment and Plan 56 yo M POD 1 s/p lap daniele- acute cholecystitis Stable post op. Low fat diet. Ok for dc home from my standpoint. F/u Saturday for drain removal. Jean London MD Feb 12, 2017 12:52
[2017-02-12] MEDS: hydrOXYzine HCL 25 MG TAB PO PRN (13:54)
--- NOTE | 2017-02-12 14:10 | HHI.PR ---
Subjective Remarks The patient was still having abdominal pain. He has not been eating well but he says he generally doesn't have much of an appetite. He had no other acute complaints. Discussed with nursing. Objective Vitals Vital Signs Date Time Temp Pulse Resp B/P Pulse Ox O2 Delivery O2 Flow Rate FiO2 02/12/17 12:00 98.3 71 18 105/50 98 02/12/17 08:07 94 21 02/12/17 08:00 97.9 63 18 140/49 94 02/12/17 04:05 98.9 62 18 117/61 96 02/12/17 00:08 98.7 55 18 107/57 98 02/11/17 20:56 100 Nasal Cannula 2.00 02/11/17 20:48 96.9 79 19 118/56 97 02/11/17 18:44 97.7 67 18 140/59 100 02/11/17 18:15 99.0 69 14 163/72 98 Nasal Cannula 2 02/11/17 18:00 71 14 169/69 98 Nasal Cannula 2 02/11/17 17:45 68 14 198/98 99 Nasal Cannula 2 02/11/17 17:30 70 15 152/52 99 Nasal Cannula 2 02/11/17 17:15 99.0 69 15 99 Nasal Cannula 2 150/58 I/O 02/11/17 02/11/17 02/11/17 02/12/17 02/12/17 02/12/17 07:00 15:00 23:00 07:00 15:00 23:00 Intake Total 1670 ml 240 ml Output Total 3000 ml 400 ml 30 ml Balance -3000 ml 1270 ml 210 ml Intake Oral 240 ml 240 ml IV Total 30 ml Other 1400 ml Output Urine Total 0 ml Drainage Total 100 ml 30 ml Hemodialysis 3000 ml Estimated Blood Loss 300 ml # Voids 1 1 0 1 # Bowel Movements 0 0 0 Result Diagram: 02/12/17 0530 02/12/17 0530 Imaging Last Impressions GI Procedure 02/09/17 0000 Signed Impressions: Service Date/Time: Thursday, February 09, 2017 10:47 - CONCLUSION: ERCP as above. Delma Obando MD Cholangiopancreatography MRI 02/08/17 0000 Signed Impressions: Service Date/Time: Wednesday, February 08, 2017 10:18 - CONCLUSION: Gallstones and cystic duct stones with diffuse gallbladder wall thickening. Intra-and extrahepatic biliary ductal dilatation with multiple small stones in the distal CBD. Dawit Hernandez MD Abdomen/Pelvis CT 02/07/17 2329 Signed Impressions: Service Date/Time: January 23:53 - CONCLUSION: 1. No evidence of calcified renal stones or hydronephrosis. 2. Chronic gallbladder disease not significantly changed compared to the prior study. 3. No acute intra-abdominal pathology. Gerard Pitts MD Objective Remarks GENERAL: This is a well-nourished, well-developed patient, in no apparent distress. SKIN: No rashes, ecchymoses or lesions. Cool and dry. HEAD: Atraumatic. Normocephalic. No temporal or scalp tenderness. EYES: No scleral icterus. No injection or drainage. ENT: Nose without bleeding, purulent drainage or septal hematoma. Airway patent. NECK: Trachea midline. No JVD CARDIOVASCULAR: Regular rate and rhythm without murmurs, gallops, or rubs. RESPIRATORY: Clear to auscultation. Breath sounds equal bilaterally. No wheezes , rales, or rhonchi. GASTROINTESTINAL: Abdomen distended but soft, diffusely tender to palpation. MUSCULOSKELETAL: Extremities without clubbing, cyanosis or edema. NEUROLOGICAL: Awake and alert. Motor and sensory grossly within normal limits. Normal speech. PSYCH: Mood and affect appropriate. Procedures ERCP 02/09. Cholecystectomy 02/11. Medications and IVs Current Medications Medications (Trade) Dose Ordered Sig/Katelyn Route Start Time Stop Time Status Last Admin (NS Flush) 2 ml UNSCH PRN IV FLUSH 02/08/17 02:15 (NS Flush) 2 ml BID IV FLUSH 02/08/17 09:00 02/12/17 08:50 (Zofran Inj) 4 mg Q6H PRN IVP 02/08/17 02:15 (Narcan Inj) 0.4 mg UNSCH PRN IV 02/08/17 02:15 (Benadryl Inj) 50 mg Q4H PRN IV PUSH 02/08/17 07:00 02/10/17 23:22 (D50w (Vial) Inj) 25 ml UNSCH PRN IV PUSH 02/08/17 07:00 (Glucagon Inj) 1 mg UNSCH PRN OTHER 02/08/17 07:00 Hydroxyzine HCl 25 mg 25 mg Q8H PRN PO 02/08/17 12:00 02/10/17 20:51 (NS 1000 ml Inj) 1,000 ml @ 0 mls/hr Q0M PRN IV 02/08/17 11:53 Heparin Sodium (Porcine) 8000 units 8,000 units UNSCH PRN IVF 02/08/17 12:00 Sodium Chloride 1,000 ml @ 200 mls/hr Q5H PRN IV 02/08/17 11:53 (NS 1000 ml Inj) 1,000 ml @ 0 mls/hr Q0M PRN IV 02/08/17 11:53 (Mannitol Inj) 12.5 gm UNSCH PRN IV 02/08/17 12:00 (Albumin 25% Inj) 25 gm UNSCH PRN IV 02/08/17 12:00 (NS Flush) 5 ml UNSCH PRN IV FLUSH 02/08/17 12:00 (Heparin Inj) UNSCH PRN .XX 02/08/17 12:00 (Gentamicin (Dialysis) Inj) 20 mg UNSCH PRN IV 02/08/17 12:00 (Zofran Inj) 4 mg UNSCH PRN IV 02/08/17 12:00 (Tylenol) 650 mg UNSCH PRN PO 02/08/17 12:00 (Benadryl) 25 mg UNSCH PRN PO 02/08/17 12:00 02/09/17 13:45 (Nitrostat Sl) 0.4 mg UNSCH PRN SL 02/08/17 12:00 (Catapres) 0.1 mg UNSCH PRN PO 02/08/17 12:00 (Epogen Inj) 6,000 units UNSCH PRN IV 02/08/17 12:00 02/11/17 11:30 (Gelfoam 12 Mm/7 Mm Top) 1 foam UNSCH PRN TOP 02/08/17 12:00 02/11/17 11:31 (Xanax) 0.25 mg Q6H PRN PO 02/08/17 14:30 (Phoslo) 1,334 mg TID PO 02/08/17 18:00 02/12/17 12:21 (Roxicodone) 5 mg Q4H PRN PO 02/08/17 14:30 02/08/17 21:10 (Roxicodone) 15 mg Q4H PRN PO 02/08/17 14:30 02/11/17 21:25 (Catapres) 0.1 mg Q6H PRN PO 02/08/17 14:30 (Ventolin Hfa Inh) 1 puff Q4H PRN INH 02/08/17 14:47 (Colace) 100 mg BID PO 02/09/17 12:45 02/12/17 08:41 (Senokot) 17.2 mg DAILY PO 02/09/17 12:45 02/12/17 08:41 Insulin Detemir 25 units 25 units HS SQ 02/10/17 21:00 02/11/17 21:27 Lactated Ringer's 1,000 ml @ 30 mls/hr Q24H PRN IV 02/11/17 02:00 02/14/17 01:59 (NS 500 ml Inj) 500 ml @ 30 mls/hr [id number] PRN IV 02/11/17 02:00 02/14/17 01:59 (Dilaudid Pf Inj) 0.5 mg Q3H PRN IV PUSH 02/11/17 16:45 02/12/17 12:22 Miscellaneous Information ALL NURSING DEPARTME... UNSCH PRN .XX 02/11/17 18:00 02/12/17 17:59 A/P Problem List: (1) Renal failure ICD Code: N19 Status: Chronic Assessment and Plan Choledocholithiasis/ Pancreatitis GI was consulted. MRCP showed: Gallstones and cystic duct stones with diffuse gallbladder wall thickening; Intra-and extrahepatic biliary ductal dilatation with multiple small stones in the distal CBD. ERCP was performed 02/09/17 and 6 stones were removed. General surgery consult appreciated. The patient went for cholecystectomy 02/11/17. - cleared for discharge by surgery. - follow LFTs. Improved. - pain meds and antiemetics as needed. - Wound care and anticoagulation per surgery. - encourage ambulation. Hypertension Blood pressure has been elevated, likely exacerbated by pain. Improved 02/12. - clonidine as needed. - pain control. Diabetes Glucose fluctuates. - insulin sliding scale. - continue Levemir 25 units HS and adjust as needed. ESRD On hemodialysis. Nephrology consulted for hemodialysis. - dialysis per nephrology. - Kayexalate 15 g PO x 1. - Repeat BMP. PPx: Heparin. Discharge Planning Anticipate discharge home tomorrow if pain better controlled. Poli Arreola DO Feb 12, 2017 14:10
[2017-02-12] MEDS ORDERED: SODIUM POLYSTYRENE SULFONATE SUSP 15 GM/60 ML CUP PO ONE (14:15)
--- NOTE | 2017-02-12 14:20 | HHI.DCPOC ---
Discharge Care Plan Diagnosis: (1) Diabetes mellitus (2) ESRD (end stage renal disease) on dialysis (3) Cholecystitis Goals to Promote Your Health * To prevent worsening of your condition and complications * To maintain your health at the optimal level Directions to Meet Your Goals Take your medications as prescribed Follow your dietary instruction Follow activity as directed Keep your appointments as scheduled Take your immunizations and boosters as scheduled If your symptoms worsen call your PCP, if no PCP go to Urgent Care Center or Emergency Room Smoking is Dangerous to Your Health. Avoid second hand smoke Call the 24-hour hour crisis hotline for domestic abuse at Poli Arreola DO Feb 12, 2017 14:20
--- NOTE | 2017-02-12 17:22 | HHI.NPPN ---
Subjective History of Present Illness 56-year-old male known to me from before with past medical history of hypertension, diabetes mellitus, chronic obstructive pulmonary disease, atrial fibrillation and end-stage renal disease on hemodialysis three times per week who came to the hospital with a complaint of abdominal pain, nausea, vomiting and loose bowel motion. I was called to see the patient for the management of dialysis. He has been on hemodialysis Saturday, Saturday and Saturday. Additional Remarks Patient is alert, seen in AM, has mild abd. pain,. started taking liquids. Review of Systems General Constitutional: Fatigue Gastrointestinal Gastrointestinal: Abdominal Pain, Nausea & Vomiting Objective Data Data 02/11/17 02/12/17 19:00 07:00 Intake Total 1430 ml 480 ml Output Total 3330 ml 100 ml Balance -1900 ml 380 ml Intake Oral 480 ml IV Total 30 ml Other 1400 ml Output Urine Total 0 ml Drainage Total 30 ml 100 ml Hemodialysis 3000 ml Estimated Blood Loss 300 ml # Voids 1 1 # Bowel Movements 0 Vital Signs Date Time Temp Pulse Resp B/P Pulse Ox O2 Delivery O2 Flow Rate FiO2 02/12/17 15:53 98.5 85 18 105/64 95 02/12/17 12:00 98.3 71 18 105/50 98 02/12/17 08:07 94 21 02/12/17 08:00 97.9 63 18 140/49 94 02/12/17 04:05 98.9 62 18 117/61 96 02/12/17 00:08 98.7 55 18 107/57 98 02/11/17 20:56 100 Nasal Cannula 2.00 02/11/17 20:48 96.9 79 19 118/56 97 02/11/17 18:44 97.7 67 18 140/59 100 02/11/17 18:15 99.0 69 14 163/72 98 Nasal Cannula 2 02/11/17 18:00 71 14 169/69 98 Nasal Cannula 2 02/11/17 17:45 68 14 198/98 99 Nasal Cannula 2 02/11/17 17:30 70 15 152/52 99 Nasal Cannula 2 -: 02/12/17 0530 02/12/17 0530 Physical Exam General Appearance: Well Developed, Well Nourished, No Acute Distress, Comfortable Pulmonary Resp Exam: Clear Bilaterally, Breath Sounds Equal Cardiology CV Exam: Regular, Normal Sinus Rhythm Gastrointestinal/Abdomen GI Exam: Soft, Bowel Sounds Present, Distended Integumentary Skin Exam: Clear Extremeties Extremities Exam: Moderate Edema, Pitting Edema Neurologic Neuro Exam: Alert, Awake, Oriented Psychiatric Psych Exam: Appropriate Responses Assessment/Plan Problem List: (1) ESRD (end stage renal disease) on dialysis (2) Diabetes mellitus (3) Hypertension (4) Acute hepatitis Plan Patient has Lap Cholecystectomy done. Tolerated the procedure well. BP is stable. HD was done yesterday. K was 5.2, repeat BMP is Pending. Advance diet as tolerated. HD will be in AM. Problem Qualifiers (1) Diabetes mellitus: (2) Hypertension: Qualified Code: I10 - Essential hypertension Ambrose Ramirez MD Feb 12, 2017 17:22
[2017-02-12 17:54] LABS: BICARBONATE 28.7 MEQ/L (21.0-32.0); POTASSIUM 4.6 MEQ/L (3.5-5.1)
[2017-02-12] MEDS: diphenhydrAMINE HCL 50 MG/ML VIAL IV PUSH PRN (18:53)
[2017-02-12] MEDS: INSULIN DETEMIR 100 UNITS/ML VIAL SQ SCH (20:14)
[2017-02-13] MEDS: diphenhydrAMINE HCL 25 MG CAP PO PRN ×2 (00:04→05:17)
[2017-02-13 00:45] VITALS: BP 102/86; PULSE 63; RESP 19; TEMP 98.2; O2SAT 95
[2017-02-13 04:01] VITALS: BP 103/58; PULSE 68; RESP 18; TEMP 98.1; O2SAT 94
[2017-02-13] MEDS: INSULIN ASPART SUPPLEMENTAL SCALE SQ SCH ×2 (05:37→12:32)
[2017-02-13 05:49] LABS: HEMATOCRIT 29.4 % (39.0-51.0); MEAN CELL VOLUME 91.6 FL (80.0-100.0); MEAN CORPUSCULAR HGB CONC 32.8 % (32.0-36.0); PLATELET COUNT 265 TH/MM3 (150-450); RED BLOOD COUNT 3.21 MIL/MM3 (4.50-5.90); RED CELL DISTRIBUTION WIDTH 14.9 % (11.6-17.2); REVIEW FLAG FINAL; WHITE BLOOD COUNT 10.1 TH/MM3 (4.0-11.0)
[2017-02-13 05:51] VITALS: PULSE 78
[2017-02-13 06:12] LABS: BICARBONATE 29.1 MEQ/L (21.0-32.0); MAGNESIUM 2.1 MG/DL (1.5-2.5); POTASSIUM 4.5 MEQ/L (3.5-5.1)
[2017-02-13 06:14] LABS: INDIRECT BILIRUBIN 0.3 MG/DL (0.0-0.8); TOTAL BILIRUBIN ADULT 0.6 MG/DL (0.2-1.0)
--- NOTE | 2017-02-13 07:11 | MP ---
cc: ALISHA AMIN MD DATE OF SURGERY 02/11/2017 PREOPERATIVE DIAGNOSIS Cholelithiasis, choledocholithiasis, previous laparotomy. POSTOPERATIVE DIAGNOSIS Acute cholecystitis, cholelithiasis, choledocholithiasis, end-stage renal disease, previous laparotomy. 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 ERCP with extraction of six stones. A sphincterotomy was performed. Therefore, he was scheduled for cholecystectomy. OPERATIVE FINDINGS The patient had severe acute and chronic inflammation of the gallbladder. It was full of stones. The cystic duct was extremely shortened and the common duct was pulled up towards the cystic duct and infundibulum. The infundibulum, cystic duct and common duct area was very carefully dissected with blunt dissection and Endoloop was placed at the shortened cystic duct. Extensive midline adhesions with omentum and small bowel adherent to anterior abdominal wall. PROCEDURE IN DETAIL The patient taken to the operating room, placed in the supine position. General endotracheal anesthesia was induced. The abdomen was prepped and draped in the usual sterile fashion and a surgical time-out was performed to verify correct patient, procedure and site. In the left upper abdomen, a 5 mm incision was made and a 5-mm trocar inserted under laparoscopic visualization. All the way from the Falciform ligament down to below the umbilicus there were fairly dense adhesions along the midline of omentum and small bowel through the anterior abdominal wall. Inferiorly, I was able to look around the adhesions and place a 5 mm port in the right upper abdomen. The laparoscope was then changed to this right-sided port and three more ports were placed, one in the right lateral abdomen, one in the epigastrium towards the right and one to the right of the umbilicus. The 12 mm port was placed in the epigastrium. The patient was then placed in reverse Trendelenburg position and attention turned to the gallbladder. The gallbladder was extremely tense and distended and required decompression. The hook electrocautery was used to create a defect in the dome of the gallbladder and the suction rolling machine tender used to suction out the bile. The gallbladder wall was extremely thickened and there was chronic and acute inflammation. It was full of stones. The gallbladder was grasped and retracted cephalad and it was attempted to be retracted laterally as well. Careful dissection around the infundibulum did not immediately reveal cystic duct or cystic artery. There was dense inflammation in this entire area and delineation of anatomy initially was difficult. Therefore, I performed a dissection in a dome down fashion using electrocautery to take the gallbladder most of the way off of the liver bed. Very careful further blunt dissection lasting approximately two hours was able to delineate the area of the common duct and the junction with the cystic duct and then the gallbladder. The cystic duct was extremely shortened. The common duct was pulled up towards the neck of the gallbladder. The cystic artery was identified and clipped twice proximally, once distally and transected. There was a very small posterior artery also clipped twice proximally, once distally and transected. After the extensive dissection, I was able place an Endoloop just on the cystic duct just away from the junction with the common bile duct. The gallbladder was transected with the scissors and removed using an EndoCatch bag after increasing the length of the fascial incision due to the size of the gallbladder. There was no leakage of bile and the Endoloop was firmly in place without impinging at all on the common duct. During the case there had been some bleeding from the liver bed and Nu-Knit gauze was used to provide hemostasis. At this point, copious irrigation was performed in the right upper quadrant, as well as removal of multiple stones using the large scoop. A 19-Thai round drain was placed through a separate stab incision in the right upper quadrant and laid in the gallbladder fossa. It was sutured in place with 3-0 nylon. Fluid was then suctioned out of the pelvis. The abdomen was then allowed to desufflate and trocars were removed. The incision at the epigastric fascia was closed with multiple 0 Vicryl simple interrupted sutures. Skin closed with subcuticular Monocryl and Dermabond. The patient tolerated the procedure well, was extubated and taken to PACU in stable condition. MD HAO Garcia/JEAN-PAUL /5:27 PM /6:58 AM
[2017-02-13 08:00] VITALS: BP 117/72; PULSE 66; RESP 18; TEMP 97.9; O2SAT 97
[2017-02-13] MEDS: CALCIUM ACETATE 667 MG CAP PO SCH ×3 (08:37→19:19)
[2017-02-13] MEDS: DOCUSATE SODIUM 100 MG CAP PO SCH (08:37)
[2017-02-13] MEDS: SENNOSIDES 8.6 MG TAB PO SCH (08:37)
[2017-02-13] MEDS: SODIUM CHLORIDE 0.9% FLUSH 10 ML FLUSH IV FLUSH SCH (08:47)
[2017-02-13] MEDS ORDERED: OXYC15TA PO (10:45)
--- NOTE | 2017-02-13 10:55 | HHI.DS ---
Discharge Summary Admission Date Feb 08, 2017 at 02:18 Discharge Date: Feb 13, 2017 Admitting Diagnosis acute hepatitis, chronic kidney disease (1) Renal failure ICD Code: N19 (2) Choledocholithiasis ICD Code: K80.50 (3) ESRD (end stage renal disease) on dialysis ICD Code: N18.6 (4) Cholecystitis ICD Code: K81.9 (5) Acute hepatitis ICD Code: B17.9 Procedures ERCP 02/09. Cholecystectomy 02/11. Brief History - From Admission History from patient, ER physician communication, and review of medical records. Patient reported that he came to the hospital because he was having severe abdominal pains. He pointed to the right upper quadrant area. He reports he is not sure of the duration of his symptoms. He denies fever. However reports that he was having sweating and cold. Reports he always usually have diarrhea and he did not notice any worsening of it. He did have vomiting 1 today. He states that he was also having severe itching for past 3 days or so. He states he even went to [facility] about 3 days ago for itching. He was not admitted. He was never told that he did have some liver dysfunction. Patient states that he does have history of hepatitis C which was treated. He does not remember the names of the medications that he was given. He follows up with advanced gastroenterology according to him. Apart from the above, patient denies any recent chest pain/shortness of breath/ syncopal episodes. He denies any blood in his stool or in his urine. CBC/BMP: 02/13/17 0530 02/13/17 0530 Significant Findings Laboratory Tests Test 02/11/17 02/11/17 02/11/17 02/12/17 06:47 15:41 15:52 05:30 Sodium Level 135 MEQ/L (136-145) Chloride Level 95 MEQ/L (98-107) Blood Urea Nitrogen 50 MG/DL (7-18) 35 MG/DL (7-18) 41 MG/DL (7-18) Creatinine 13.24 MG/DL 10.15 MG/DL 11.62 MG/DL (0.60-1.30) (0.60-1.30) (0.60-1.30) Estimat Glomerular Filtration 5 ML/MIN (>89) 6 ML/MIN (>89) 5 ML/MIN (>89) Rate Random Glucose 174 MG/DL 171 MG/DL 212 MG/DL (74-106) (74-106) (74-106) Hemoglobin 10.3 GM/DL 9.9 GM/DL (13.0-17.0) (13.0-17.0) Hematocrit 32.3 % 31.0 % (39.0-51.0) (39.0-51.0) Arterial Blood pH 7.48 (7.380-7.420) Arterial Blood Partial 31 mmHg (38-42) Pressure CO2 Arterial Blood Partial 263 mmHg Pressure O2 (61-120) Blood Gas Hemoglobin 11.4 G/DL (12.0-16.0) White Blood Count 12.4 TH/MM3 (4.0-11.0) Red Blood Count 3.36 MIL/MM3 (4.50-5.90) Mean Corpuscular Hemoglobin 31.8 % Concent (32.0-36.0) Potassium Level 5.2 MEQ/L (3.5-5.1) Direct Bilirubin 0.3 MG/DL (0.0-0.2) Aspartate Amino Transf 80 U/L (15-37) (AST/SGOT) Alanine Aminotransferase 340 U/L (12-78) (ALT/SGPT) Alkaline Phosphatase 332 U/L (45-117) Albumin 2.9 GM/DL (3.4-5.0) Test 02/12/17 02/13/17 17:05 05:30 Chloride Level 96 MEQ/L 97 MEQ/L (98-107) (98-107) Blood Urea Nitrogen 49 MG/DL (7-18) 50 MG/DL (7-18) Creatinine 12.84 MG/DL 13.71 MG/DL (0.60-1.30) (0.60-1.30) Estimat Glomerular Filtration 5 ML/MIN (>89) 5 ML/MIN (>89) Rate Random Glucose 290 MG/DL 196 MG/DL (74-106) (74-106) Red Blood Count 3.21 MIL/MM3 (4.50-5.90) Hemoglobin 9.6 GM/DL (13.0-17.0) Hematocrit 29.4 % (39.0-51.0) Direct Bilirubin 0.3 MG/DL (0.0-0.2) Alanine Aminotransferase 238 U/L (12-78) (ALT/SGPT) Alkaline Phosphatase 289 U/L (45-117) Albumin 3.0 GM/DL (3.4-5.0) Imaging Last Impressions GI Procedure 02/09/17 0000 Signed Impressions: Service Date/Time: Thursday, February 09, 2017 10:47 - CONCLUSION: ERCP as above. Delma Obando MD Cholangiopancreatography MRI 02/08/17 0000 Signed Impressions: Service Date/Time: Wednesday, February 08, 2017 10:18 - CONCLUSION: Gallstones and cystic duct stones with diffuse gallbladder wall thickening. Intra-and extrahepatic biliary ductal dilatation with multiple small stones in the distal CBD. Dawit Hernandez MD Abdomen/Pelvis CT 02/07/17 2323 Signed Impressions: Service Date/Time: January 23:53 - CONCLUSION: 1. No evidence of calcified renal stones or hydronephrosis. 2. Chronic gallbladder disease not significantly changed compared to the prior study. 3. No acute intra-abdominal pathology. Gerard Pitts MD PE at Discharge GENERAL: This is a well-nourished, well-developed patient, in no apparent distress. SKIN: No rashes, ecchymoses or lesions. Cool and dry. HEAD: Atraumatic. Normocephalic. No temporal or scalp tenderness. EYES: No scleral icterus. No injection or drainage. ENT: Nose without bleeding, purulent drainage or septal hematoma. Airway patent. NECK: Trachea midline. No JVD CARDIOVASCULAR: Regular rate and rhythm without murmurs, gallops, or rubs. RESPIRATORY: Clear to auscultation. Breath sounds equal bilaterally. No wheezes , rales, or rhonchi. GASTROINTESTINAL: Abdomen distended but soft, diffusely tender to palpation. MUSCULOSKELETAL: Extremities without clubbing, cyanosis or edema. NEUROLOGICAL: Awake and alert. Motor and sensory grossly within normal limits. Normal speech. PSYCH: Mood and affect appropriate. Pt update on day of discharge Patient reports he is feeling better today. Pain is controlled with oral medications. No nausea or vomiting. Tolerating a diet. Hospital Course 56-year-old male admitted and treated for the following conditions: Choledocholithiasis/ Pancreatitis GI was consulted. MRCP showed: Gallstones and cystic duct stones with diffuse gallbladder wall thickening; Intra-and extrahepatic biliary ductal dilatation with multiple small stones in the distal CBD. ERCP was performed 02/09/17 and 6 stones were removed. General surgery consult appreciated. The patient went for cholecystectomy 02/11/17. The patient was cleared by general surgery for discharge follow-up outpatient. He does have a drain in place. This will be taken care of by general surgery on his follow-up appointment. Hypertension Blood pressure has been elevated, likely exacerbated by pain. Improved with better pain control. Diabetes Glucose fluctuates. - insulin sliding scale. - continue Levemir 25 units HS and adjust as needed. ESRD On hemodialysis. Nephrology consulted for hemodialysis. - dialysis per nephrology. - Kayexalate 15 g PO x 1. -Okay to discharge home today after dialysis. Patient was cleared to discharge home in stable condition after dialysis today. He is to follow-up with general surgery as scheduled. We discussed discharge planning at length and the need to follow-up. All of his questions were answered. Pt Condition on Discharge: Good Discharge Disposition: Discharge Home Discharge Time: > 30 minutes Discharge Instructions DIET: Follow Instructions for: Heart Healthy Diet Activities you can perform: Regular-No Restrictions Follow up Referrals: Surgical - 02/18/17 with Jean London MD Continued Medications: Albuterol 18 GM Inh (Ventolin Hfa 18 GM Inh) 90 Mcg/Act Aer 1 PUFF INH Q4H PRN SHORTNESS OF BREATH #1 Ref 0 INHALER Alprazolam (Xanax) 0.25 Mg Tab 0.25 MG PO Q6H PRN ANXIETY Ref 0 TAB Aspirin (Aspirin) 81 Mg Chew 81 MG CHEW DAILY Ref 0 TAB Atorvastatin (Lipitor) 40 Mg Tab 40 MG PO HS Cholesterol Management #30 Ref 0 TAB Calcium Acetate (Phosphate Binder) (Phoslo) 667 Mg Cap 1334 MG PO TID Hyperphosphatemia #180 Ref 0 CAP Gabapentin (Gabapentin) 600 Mg Tab 600 MG PO TID Ref 0 TAB Insulin Glargine Inj (Lantus Inj) 1,000 Unit/10 Ml Vial 60 UNITS SQ HS Blood Sugar Management Ref 0 VIAL Insulin Human Regular Inj (Novolin R Inj) 1,000 Unit/10 Ml Vial 10 UNITS SQ TID Blood Sugar Management #10 Ref 0 ML Meloxicam (Meloxicam) 7.5 Mg Tab 7.5 MG PO DAILY Arthritis Pain Ref 0 TAB Oxycodone (Oxycodone) 15 Mg Tab 15 MG PO Q6H PRN PAIN #30 Ref 0 TAB (This prescription has been renewed) Zolpidem (Ambien) 10 Mg Tab 10 MG PO HS PRN INSOMNIA Ref 0 TAB ([trimix]) 0.4 ML SQ TWICE A WEEK PRN ERECTILE DYSFUNCTION Discontinued Medications: Hydrocodone-Acetaminophen ([place]) 7.5-325 mg Tab 2 TAB PO Q4H PRN PAIN Ref 0 TAB Hydrocodone-Acetaminophen ([place]) 5-325 mg Tab 1 TAB PO Q4H PRN PAIN #25 Ref 0 TAB David Horta MD Feb 13, 2017 10:55
[2017-02-13 12:00] VITALS: BP 116/69; PULSE 82; RESP 18; TEMP 98.1; O2SAT 95
[2017-02-13 12:12] VITALS: O2SAT 95
[2017-02-13] MEDS: diphenhydrAMINE HCL 50 MG/ML VIAL IV PUSH PRN (12:19)
[2017-02-13] MEDS: EPOETIN ALFA 10,000 UNITS/ML VIAL IV PRN (17:29)
[2017-02-15 16:39] LABS: HEREDITARY HEMOCHROM SPECIMEN WB Whole Blood (())
== END 2017-02-13 19:33 | disposition home or self-care (01) | DRG 417 ==
LOC: NEPE 21:29 → NEDA 02-08 02:18 → N06B 02-08 02:48
PROVIDERS: ADMIT Family Medicine; ATTEND Family Medicine
PROC: 5A1D60Z (ICD-10-PCS; 2017-02-08)
PROC: 0FC98ZZ Extirpation of Matter from Common Bile Duct, Via Natural or Artificial Opening Endoscopic (ICD-10-PCS; 2017-02-09)
PROC: 0FT44ZZ Resection of Gallbladder, Percutaneous Endoscopic Approach (ICD-10-PCS; principal; 2017-02-11 12:39)
DX: K80.62 Calculus of gallbladder and bile duct with acute cholecystitis without obstruction (principal); K85.10 Biliary acute pancreatitis without necrosis or infection; I13.2 Hypertensive heart and chronic kidney disease with heart failure and with stage 5 chronic kidney disease, or end stage renal disease; N18.6 End stage renal disease; E11.22 Type 2 diabetes mellitus with diabetic chronic kidney disease; E11.42 Type 2 diabetes mellitus with diabetic polyneuropathy; I48.91 Unspecified atrial fibrillation; I50.30 Unspecified diastolic (congestive) heart failure; J44.9 Chronic obstructive pulmonary disease, unspecified; E83.39 Other disorders of phosphorus metabolism; F41.9 Anxiety disorder, unspecified; F17.210 Nicotine dependence, cigarettes, uncomplicated; E66.9 Obesity, unspecified; K59.09 Other constipation; Z99.2 Dependence on renal dialysis; Z79.4 Long term (current) use of insulin; Z86.19 Personal history of other infectious and parasitic diseases; Z68.35 Body mass index [BMI] 35.0-35.9, adult
CPT/HCPCS: 71010; 74176; 74181; 74330; 76377; 76937; 80048; 80053; 80074; 80076; 80307; 81256; 82103; 82390; 82728; 82805; 82948; 83516; 83520; 83540; 83550; 83605; 83690; 83735; 85014; 85018; 85025; 85027; 85610; 85730; 86038; 86256; 87522; 87902; 88304; 90935; 93005; 96374; 96375; C1769; C9113; J1170; J1200; J1610; J1815; J2250; J2270; J2370; J2405; J2805; J3010; J3370; J7030; J7050; Q4081

== ENCOUNTER 2017-09-27 13:31 | Emergency (ER) | payer MEDICARE, MEDICAID ==
[~2017-09-27] VITALS: Ht 188 cm; Wt 113.5 kg
[~2017-09-27 13:31] MED LIST changes: +ASPI-516 CHEW; -ASPI81CH CHEW; +GABA600T PO; -HYDR-3288 PO; +MELO7.5T27 PO; -NORC5TAB PO; +OXYC15TA PO
[2017-09-27 13:32] VITALS: BP 150/85; PULSE 50; RESP 16; TEMP 99; O2SAT 100
[2017-09-27] MEDS ORDERED: SODIUM CHLORIDE 0.9% FLUSH 10 ML FLUSH IV FLUSH PRN (15:00)
--- NOTE | 2017-09-27 15:02 | PD ---
HPI Chief Complaint: GI Complaint Time Seen by Provider: 14:40 Travel History International Travel<30 days: No Contact w/Intl Traveler<30days: No Traveled to known affect area: No History of Present Illness HPI 56-year-old male with end-stage renal disease and diabetes presents to the emergency department complaining of weakness for approximately 2-3 days and nonbloody vomiting for approximately 2 weeks. Patient states that he vomits approximately 10-15 minutes after he eats. Patient denies nausea. He does have chronic diarrhea for approximately 3 years after starting dialysis. Patient denies fever or chills, chest pain, abdominal pain, urinary symptoms. Patient was due for dialysis today however, patient decided to come here because he is feeling weak. Patient's primary care physician was Dr. Cedillo and is lining stitcher is Dr. Ramirez. FORMERLY [facility] Past Medical History Hx Anticoagulant Therapy: Yes (asa) Arthritis: Yes Asthma: No Atrial Fibrillation: Yes Blood Disorders: No Anxiety: No Depression: No Heart Rhythm Problems: Yes (bradycardia irregular heart beat ) Cancer: No Cardiovascular Problems: Yes High Cholesterol: Yes Chemotherapy: No Chest Pain: Yes Congestive Heart Failure: Yes COPD: No Cerebrovascular Accident: No Diabetes: Yes Dialysis: Yes (MWF) Diminished Hearing: No Endocrine: Yes (renal failure) Gastrointestinal Disorders: Yes (ACID REFLUX ) GERD: Yes Genitourinary: No Headaches: Yes Hepatitis: Yes ("C") Hiatal Hernia: No Hypertension: Yes Immune Disorder: No Implanted Vascular Access Dvce: Yes Musculoskeletal: No Neurologic: No Psychiatric: No Reproductive: No Respiratory: No Immunizations Current: No (PATIENT STATES HE IN NOT UP TO DATE ON ANY IMMUNIZATIONS) Migraines: Yes Radiation Therapy: No Renal Failure: Yes Sleep Apnea: Yes Thyroid Disease: No Past Surgical History Abdominal Surgery: Yes (2000 INTESTINAL REPAIR ) AICD: No Cardiac Surgery: No Ear Surgery: No Endocrine Surgery: No Eye Surgery: Yes (BILATERAL EYE SURGERY) Genitourinary Surgery: No Gynecologic Surgery: No Joint Replacement: No Neurologic Surgery: No Oral Surgery: No Pacemaker: No Thoracic Surgery: Yes (CAT 2014) Other Surgery: Yes (left arm fistula) Social History Alcohol Use: No Tobacco Use: Yes Substance Use: No Allergies-Medications (Allergen,Severity, Reaction): Coded Allergies: No Known Allergies (Unverified , 4/13/17) Reported Meds & Prescriptions Reported Meds & Active Scripts Active Phenergan Supp (Promethazine HCl) 25 Mg Supp 25 Mg RECTAL Q6H PRN 7 Days Zofran Odt (Ondansetron Odt) 4 Mg Tab 4 Mg SL Q8HR PRN 7 Days Oxycodone (Oxycodone HCl) 15 Mg Tab 15 Mg PO Q6H PRN Reported Gabapentin 600 Mg Tab 600 Mg PO TID Meloxicam 7.5 Mg Tab 7.5 Mg PO DAILY Novolin R Inj (Insulin Human Regular) 1,000 Unit/10 Ml Vial 10 Units SQ TID Aspirin 81 Mg Chew 81 Mg CHEW DAILY Xanax (Alprazolam) 0.25 Mg Tab 0.25 Mg PO Q6H PRN Ventolin Hfa 18 GM Inh (Albuterol Sulfate) 90 Mcg/Act Aer 1 Puff INH Q4H PRN Lipitor (Atorvastatin Calcium) 40 Mg Tab 40 Mg PO HS Lantus Inj (Insulin Glargine) 1,000 Unit/10 Ml Vial 60 Units SQ HS Ambien (Zolpidem Tartrate) 10 Mg Tab 10 Mg PO HS PRN Phoslo (Calcium Acetate (Phosphate Binder)) 667 Mg Cap 1,334 Mg PO TID [trimix] 0.4 Ml SQ TWICE A WEEK PRN Review of Systems Except as stated in HPI: all other systems reviewed are Neg Physical Exam Narrative GENERAL: Well-developed well-nourished in mild distress SKIN: Focused skin assessment warm/dry. HEAD: Atraumatic. Normocephalic. EYES: Pupils equal and round. No scleral icterus. No injection or drainage. ENT: No nasal bleeding or discharge. Mucous membranes pink and moist. NECK: Trachea midline. No JVD. CARDIOVASCULAR: Regular rate and rhythm. No murmur appreciated. RESPIRATORY: No accessory muscle use. Clear to auscultation. Breath sounds equal bilaterally. GASTROINTESTINAL: Abdomen soft, non-tender, nondistended. Hepatic and splenic margins not palpable. Midline scar, multiple scars along abdomen consistent with patient recent cholecystectomy MUSCULOSKELETAL: No obvious deformities. No clubbing. No cyanosis. No edema. NEUROLOGICAL: Awake and alert. No obvious cranial nerve deficits. Motor grossly within normal limits. Normal speech. PSYCHIATRIC: Appropriate mood and affect; insight and judgment normal. Data Data Last Documented VS Vital Signs Date Time Temp Pulse Resp B/P (MAP) Pulse Ox O2 Delivery O2 Flow Rate FiO2 09/27/17 19:31 09/27/17 17:08 56 16 100 Room Air 09/27/17 13:32 99.0 Orders Orders Complete Blood Count With Diff (09/27/17 14:51) Comprehensive Metabolic Panel (09/27/17 14:51) Lipase (09/27/17 14:51) Urinalysis - C+S If Indicated (09/27/17 14:51) Iv Access Insert/Monitor (09/27/17 14:51) Ecg Monitoring (09/27/17 14:51) Oximetry (09/27/17 14:51) Sodium Chloride 0.9% Flush (Ns Flush) (09/27/17 15:00) Vascular Access Team Consult/P PRN (09/27/17 15:12) Vascular Poc Ultrasound (09/27/17 ) Abdomen, Flat & Upright (09/27/17 ) Sodium Chlor 0.9% 1000 Ml Inj (Ns 1000 M (09/27/17 15:30) Ed Discharge Order (09/27/17 19:19) Labs Laboratory Tests Test 09/27/17 16:00 09/27/17 17:15 White Blood Count 9.5 TH/MM3 Red Blood Count 4.20 MIL/MM3 Hemoglobin 12.8 GM/DL Hematocrit 38.4 % Mean Corpuscular Volume 91.4 FL Mean Corpuscular Hemoglobin 30.5 PG Mean Corpuscular Hemoglobin Concent 33.4 % Red Cell Distribution Width 15.2 % Platelet Count 177 TH/MM3 Mean Platelet Volume 9.0 FL Neutrophils (%) (Auto) 67.5 % Lymphocytes (%) (Auto) 16.2 % Monocytes (%) (Auto) 10.3 % Eosinophils (%) (Auto) 5.2 % Basophils (%) (Auto) 0.8 % Neutrophils # (Auto) 6.4 TH/MM3 Lymphocytes # (Auto) 1.5 TH/MM3 Monocytes # (Auto) 1.0 TH/MM3 Eosinophils # (Auto) 0.5 TH/MM3 Basophils # (Auto) 0.1 TH/MM3 CBC Comment DIFF FINAL Differential Comment Blood Urea Nitrogen 41 MG/DL Creatinine 9.89 MG/DL Random Glucose 127 MG/DL Total Protein 8.4 GM/DL Albumin 3.4 GM/DL Calcium Level 8.5 MG/DL Alkaline Phosphatase 67 U/L Aspartate Amino Transf (AST/SGOT) 11 U/L Alanine Aminotransferase (ALT/SGPT) 17 U/L Total Bilirubin 0.3 MG/DL Sodium Level 134 MEQ/L Potassium Level 4.4 MEQ/L Chloride Level 102 MEQ/L Carbon Dioxide Level 22.2 MEQ/L Anion Gap 10 MEQ/L Estimat Glomerular Filtration Rate 7 ML/MIN Lipase 394 U/L MDM Medical Decision Making Medical Screen Exam Complete: Yes Emergency Medical Condition: Yes Differential Diagnosis Gastroenteritis versus small bowel obstruction versus gastroparesis versus idiopathic vomiting Narrative Course 56-year-old male with end-stage renal disease and diabetes presents to the emergency department complaining of weakness for approximately 2-3 days and nonbloody vomiting for approximately 2 weeks. Patient states that he vomits approximately 10-15 minutes after he eats. Patient denies nausea. He does have chronic diarrhea for approximately 3 years after starting dialysis. Patient denies fever or chills, chest pain, abdominal pain, urinary symptoms. Patient was due for dialysis today however, patient decided to come here because he is feeling weak. Patient's primary care physician was Dr. Cedillo and is lining stitcher is Dr. Ramirez. Vital signs stable Physical exam essentially unremarkable. Patient does appear to be fatigued. Urine pending. Patient states he does produce urine however, it is not likely that we will see a specimen during the emergency department that visit. Normal saline bolus 1000 mL with improvement patient's symptoms. Laboratory Tests Test 09/27/17 16:00 09/27/17 17:15 White Blood Count 9.5 TH/MM3 Red Blood Count 4.20 MIL/MM3 Hemoglobin 12.8 GM/DL Hematocrit 38.4 % Mean Corpuscular Volume 91.4 FL Mean Corpuscular Hemoglobin 30.5 PG Mean Corpuscular Hemoglobin Concent 33.4 % Red Cell Distribution Width 15.2 % Platelet Count 177 TH/MM3 Mean Platelet Volume 9.0 FL Neutrophils (%) (Auto) 67.5 % Lymphocytes (%) (Auto) 16.2 % Monocytes (%) (Auto) 10.3 % Eosinophils (%) (Auto) 5.2 % Basophils (%) (Auto) 0.8 % Neutrophils # (Auto) 6.4 TH/MM3 Lymphocytes # (Auto) 1.5 TH/MM3 Monocytes # (Auto) 1.0 TH/MM3 Eosinophils # (Auto) 0.5 TH/MM3 Basophils # (Auto) 0.1 TH/MM3 CBC Comment DIFF FINAL Differential Comment Blood Urea Nitrogen 41 MG/DL Creatinine 9.89 MG/DL Random Glucose 127 MG/DL Total Protein 8.4 GM/DL Albumin 3.4 GM/DL Calcium Level 8.5 MG/DL Alkaline Phosphatase 67 U/L Aspartate Amino Transf (AST/SGOT) 11 U/L Alanine Aminotransferase (ALT/SGPT) 17 U/L Total Bilirubin 0.3 MG/DL Sodium Level 134 MEQ/L Potassium Level 4.4 MEQ/L Chloride Level 102 MEQ/L Carbon Dioxide Level 22.2 MEQ/L Anion Gap 10 MEQ/L Estimat Glomerular Filtration Rate 7 ML/MIN Lipase 394 U/L Lipase mildly elevated at 394. Kidney function consistent with patient's end- stage renal disease. Electrolytes and CBC normal. Last Impressions Abdomen X-Ray 09/27/17 0000 Signed Impressions: Service Date/Time: Wednesday, September 27, 2017 15:26 - CONCLUSION: Negative for free air or obstruction. Coy Wright MD FACR Patient will have a by mouth challenge in the emergency department. Successful. Patient resting comfortably. No vomiting in the emergency department today. Patient requires dialysis today. I suspect that his exchange may not be appropriate for him and requires adjustment. Patient advised to go immediately to dialysis for treatment after discharge from the hospital. I advised patient and sister to return to emergency department if both antiemetics do not improve symptoms. Patient and sister understand and will comply. Diagnosis Primary Impression: Vomiting Qualified Codes: R11.11 - Vomiting without nausea Referrals: [facility] Primary Care Physician Additional Instructions: Use Zofran ODT for vomiting. If this does not work or you cannot tolerate this take Phenergan SD. If your symptoms do not improve or persists return to the emergency department for further treatment and evaluation. Follow-up with primary care physician within 2-3 days. Scripts Promethazine Supp (Phenergan Supp) 25 Mg Supp 25 MG RECTAL Q6H Y for NAUSEA OR VOMITING for 7 Days, #28 SUPP 0 Refills Prov: Toro Brito MD 09/27/17 Ondansetron Odt (Zofran Odt) 4 Mg Tab 4 MG SL Q8HR Y for Nausea/Vomiting for 7 Days, #21 TAB 0 Refills Prov: Lightburn,Toro Brad MD 09/27/17 Disposition: 01 DISCHARGE HOME Condition: Stable Penny Aguirre Sep 27, 2017 15:02
[2017-09-27] MEDS ORDERED: SODIUM CHLOR 0.9% 1000 ML INJ 1,000 ML IV ONE (15:30)
[2017-09-27 15:44] VITALS: O2SAT 97
--- NOTE | 2017-09-27 16:10 | RADRPT ---
EXAM DATE/TIME: 09/27/2017 15:26 [place] COMPARISON: No previous studies available for comparison. INDICATIONS : Vomiting MEDICAL HISTORY : Renal failure, chronic. SURGICAL HISTORY : Cholecystectomy. ENCOUNTER: Initial ACUITY: 2 weeks PAIN SCORE: 5/10 LOCATION: Bilateral Abdomen FINDINGS: Dialysis catheter right atrium. Bibasilar unremarkable. There is no free air. Surgical clips gallb ladder fossa. The portion of the bony skeleton visualized is unremarkable. CONCLUSION: Negative for free air or obstruction. Coy Wright MD FACR on September 27, 2017 at 16:07 Board Certified Radiologist. This report was verified electronically.
[2017-09-27 16:26] LABS: AUTOMATED NEUTROPHIL # 6.4 TH/MM3 (1.8-7.7); BASOPHIL # 0.1 TH/MM3 (0-0.2); BASOPHIL % 0.8 % (0.0-2.0); EOSINOPHIL # 0.5 TH/MM3 (0-0.4); EOSINOPHIL % 5.2 % (0.0-4.0); HEMATOCRIT 38.4 % (39.0-51.0); HEMO FLAGS DIFF FINAL; LYMPH % 16.2 % (9.0-44.0); LYMPHOCYTE # 1.5 TH/MM3 (1.0-4.8); MEAN CELL VOLUME 91.4 FL (80.0-100.0); MEAN CORPUSCULAR HEMOGLOBIN 30.5 PG (27.0-34.0); MEAN CORPUSCULAR HGB CONC 33.4 % (32.0-36.0); MONO % 10.3 % (0.0-8.0); NEUT % 67.5 % (16.0-70.0); PLATELET COUNT 177 TH/MM3 (150-450); RED CELL DISTRIBUTION WIDTH 15.2 % (11.6-17.2); WHITE BLOOD COUNT 9.5 TH/MM3 (4.0-11.0)
[2017-09-27 17:02] LABS: ALT (GPT) 17 U/L (12-78)
[2017-09-27 17:04] LABS: ALKALINE PHOSPHATASE 67 U/L (45-117); TOTAL BILIRUBIN ADULT 0.3 MG/DL (0.2-1.0)
[2017-09-27 17:08] VITALS: BP 183/93; PULSE 56; RESP 16; O2SAT 100
[2017-09-27 18:00] LABS: BLOOD UREA NITROGEN 41 MG/DL (7-18)
[2017-09-27 18:01] LABS: AST (GOT) 11 U/L (15-37); CHLORIDE 102 MEQ/L (98-107); GLOMERULAR FILTRATION RATE 7 ML/MIN (>89); POTASSIUM 4.4 MEQ/L (3.5-5.1); SODIUM (NA) 134 MEQ/L (136-145)
[2017-09-27 18:02] LABS: ANION GAP 10 MEQ/L (5-15); BICARBONATE 22.2 MEQ/L (21.0-32.0)
[2017-09-27] MEDS ORDERED: PROM1SUP7 RECTAL (19:19)
[2017-09-27] MEDS ORDERED: ZOFR4TAB3 SL (19:19)
== END 2017-09-27 19:51 | disposition home or self-care (01) ==
LOC: NEPE 13:31
DX: R11.10 Vomiting, unspecified (principal); R19.7 Diarrhea, unspecified; E11.22 Type 2 diabetes mellitus with diabetic chronic kidney disease; N18.6 End stage renal disease; I13.2 Hypertensive heart and chronic kidney disease with heart failure and with stage 5 chronic kidney disease, or end stage renal disease; I50.9 Heart failure, unspecified; I48.91 Unspecified atrial fibrillation; K21.9 Gastro-esophageal reflux disease without esophagitis; E78.00 Pure hypercholesterolemia, unspecified
CPT/HCPCS: 74020; 80053; 83690; 85025; 99285; J7030

== ENCOUNTER → 2017-10-23 | Outpatient (CLI) | payer MEDICARE ==
[~2017-10-23] MED LIST changes: +CALC1CAP PO; +METO50TA PO; +NEPHTAB3 PO; +PROM1SUP7 RECTAL; +ZOFR4TAB3 SL
[2017-10-23 13:01] LABS: HEMATOCRIT 37.2 % (39.0-51.0); HEMOGLOBIN 12.2 GM/DL (13.0-17.0); MEAN CORPUSCULAR HEMOGLOBIN 30.4 PG (27.0-34.0); MEAN CORPUSCULAR HGB CONC 32.7 % (32.0-36.0); PLATELET COUNT 170 TH/MM3 (150-450); RED CELL DISTRIBUTION WIDTH 15.4 % (11.6-17.2); WHITE BLOOD COUNT 6.8 TH/MM3 (4.0-11.0)
[2017-10-23 13:12] LABS: INTERNATIONAL NORMALIZED RATIO 1.1 RATIO; PROTHROMBIN TIME - PATIENT 10.7 SEC (9.8-11.6)
[2017-10-23 13:22] LABS: BICARBONATE 19.7 MEQ/L (21.0-32.0); CALCIUM 8.9 MG/DL (8.5-10.1); CREATININE 11.56 MG/DL (0.60-1.30)
--- NOTE | 2017-10-23 13:39 | RADRPT ---
EXAM DATE/TIME: 10/23/2017 12:55 [facility] COMPARISON: CHEST PA & LAT, January 27, 2015, 9:37. INDICATIONS : Evaluate for pneumonia, pneumothorax or communicable disease. Pre op for fistula surgery -18 MEDICAL HISTORY : Hypertension. Congestive heart failure. diabetes SURGICAL HISTORY : None. ENCOUNTER: Initial ACUITY: 1 day PAIN SCORE: 0/10 LOCATION: Bilateral chest FINDINGS: PA and lateral views of the chest demonstrate the lungs to be symmetrically aerated without evidence of mass, infiltrate or effusion. The cardiomediastinal contours are unremarkable. Right sided tunneled dialysis catheter noted in place. Osseous structures are intact. CONCLUSION: No acute disease. Tunneled dialysis catheter. Redd Stokes MD on October 23, 2017 at 13:37 Board Certified Radiologist. This report was verified electronically.
--- NOTE | 2017-10-24 23:33 | EKG ---
Date Performed: 10/23/2017 Time Performed: 11:37:18 PTAGE: 56 years EKG: Sinus bradycardia Left axis deviation IV conduction defect Inferior/lateral T wave changes are nonspecific Abnormal ECG PREVIOUS TRACING : 02/09/2017 06.03 DOCTOR: Glynn Solitario Interpretating Date/Time 10/24/2017 23:32:24
== END ==
LOC: CPRE 11:15
PROVIDERS: ATTEND Surgery
DX: Z01.812 Encounter for preprocedural laboratory examination (principal); Z01.810 Encounter for preprocedural cardiovascular examination; Z01.811 Encounter for preprocedural respiratory examination; N18.6 End stage renal disease; I10 Essential (primary) hypertension; E11.9 Type 2 diabetes mellitus without complications; I50.9 Heart failure, unspecified; R94.31 Abnormal electrocardiogram [ECG] [EKG]
CPT/HCPCS: 36415; 71020; 80048; 85027; 85610; 85730; 93005

== ENCOUNTER → 2017-10-29 | Day surgery (SDC) | payer MEDICARE ==
[~2017-10-29] VITALS: Ht 185.4 cm; Wt 126.4 kg
[~2017-10-29] MED LIST changes: +BUPIVACAINE HCL PF 0.5% 30 ML VIAL ONE; +CHLORHEXIDINE GLUCONATE 2 % 1 PACK (2 CLOTHS) TOPICAL PRN; +DO NOT ADM ANY ANTICOAGULANT DRUGS PRN; +FAMOTIDINE 20 MG/2 ML VIAL ONE; +GLYCOPYRROLATE 1 MG/5 ML SYRINGE IV PUSH ONE; +HEPARIN SODIUM - IV 10,000 UNITS/10 ML VIAL ONE; +HEPARIN-NS/PF INJ 500 ML ONE; +INSULIN HUMAN REGULAR 1,000 UNITS/10 ML VIAL ONE; +INSULIN HUMAN REGULAR 1,000 UNITS/10 ML VIAL SQ PRN; +LACTATED RINGER'S 1000 ML IV PRN; +LIDOCAINE HCL 1% PF 5 ML SYRINGE OTHER ONE; -LIPI40TA PO; +METOPROLOL TARTRATE 25 MG TAB PO PRN; +MIDAZOLAM HCL 2 MG/2 ML VIAL ONE; +MORPHINE SULFATE 2 MG/ML INJ IV PRN; +NEOSTIGMINE 5 MG/5 ML SYRINGE IV PUSH ONE; +ONDANSETRON HCL 4 MG/2 ML VIAL IV PUSH ONE; +POVIDONE IODINE 5% (ANTISEPSIS KIT) 4 APPLICATIONS EACH NARE PRN; +PROPOFOL 200 MG/20 ML AMP IV ONE; +PROTAMINE SULFATE 50 MG/5 ML VIAL ONE; +ROCURONIUM INJ 50 MG/5 ML SYRINGE IV PUSH ONE; +SODIUM CHLOR 0.9% 250 ML INJ 250 ML IV ONE; +SODIUM CHLORID 0.9% 500 ML IV PRN; +THROMBIN (TOPICAL) 20,000 UNIT SPRAY KIT ONE; +VANCOMYCIN HCL 1000 MG VIAL ONE; +ePHEDrine/NS 25 MG/5 ML SYRINGE IV ONE; -trimix SQ
--- NOTE | 2017-10-29 07:17 | PD.VS.PN ---
Pre-operative Note Pre-operative diagnosis: ESRD, need for HD access Planned procedure: R brachiobasilic AVF (1st stage) Interval History: Pt has been feeling well - no HD since Sat (he skipped it). No SOB and no CP/F/C or other symptoms that would preclude OR Labs: pending Blood: none needed Imaging: ultrasound reviewed - R basilic vein adequate quality Orders: NPO Vanc 1g IV OCTOR Post-operative destination: PACU then home today Operative site marked: Yes Consent: Informed consent has been obtained from Percy Hernandez. I have explained the procedure in detail and discussed the risks, benefits, and potential complications. All questions have been answered. Patient contact information: [phone] Uri Medina MD Oct 29, 2017 07:17
--- NOTE | 2017-10-29 09:43 | HHI.PR ---
cc: Uri Medina MD; Ambrose Ramirez MD Immediate Post Op Note Procedure Date: Oct 29, 2017 Pre Op Diagnosis: ESRD, need for HD access Post Op Diagnosis: ESRD, need for HD access Surgeon: Uri Medina Presales Consultant(s): Cinthya Keating Procedure: R brachiobasilic AVF (1st stage) Findings: 3-4mm vein, 5mm artery Additional Information: good thrill at conclusion of AVF + Doppler signal in wrist Complications: none Specimen(s) removed: none for pathology Estimated blood loss: 10mL Anesthesia: General Drains: None Fluids: 450mL IVF Patient to: PACU Patient Condition: Good Date/Time of Procedure: SEE SURGICAL CARE RECORD Uri Medina MD Oct 29, 2017 09:43
--- NOTE | 2017-10-29 10:28 | MP ---
cc: MARI MEDINA MD DATE OF SURGERY 10/29/2017 PREOPERATIVE DIAGNOSIS End-stage renal disease, needs dialysis access. POSTOPERATIVE DIAGNOSIS End-stage renal disease, needs dialysis access. PROCEDURE Right brachiobasilic arteriovenous fistula (first stage). ATTENDING SURGEON Mari Medina. WAGE HAND SURGEON Cinthya Keating. ANESTHESIA General. INDICATION Mr. Hernandez is a 56-year-old gentleman with end-stage renal disease who is currently dialyzing through a chest catheter. He has two prior failed access attempts on his left arm ABD preoperative imaging suggests his right basilic vein is adequate for autologous access creation. DESCRIPTION OF PROCEDURE Informed consent was obtained from the patient. He is taken to the operating room and placed supine on the operating table. An appropriate timeout was taken to ensure the patient's identity, operative site and planned procedure. The administration of a gram of vancomycin was initiated prior to the skin incision and will be discontinued after a single preoperative dose. Vancomycin was chosen because of the patient's end-stage renal disease. Everyone in the room agreed with the timeout and we proceeded. His right arm was prepped and draped. An incision was made in the distal aspect of the medial upper extremity and carried down to subcutaneous tissue with electrocautery. The basilic vein was identified. Side branches were ligated with 3-0 silk and the vein was marked for orientation. The brachial artery was identified on the medial aspect of the incision and encircled with a vessel loop. The patient was systemically heparinized with 3000 units of IV heparin. The distal aspect of the basilic vein was clamped with a right angle. The vein was transected and the distal end was oversewn with 3-0 silk. A Sahil bulldog clamp was placed on the proximal aspect of the vein. The vein was mobilized to meet up with the artery. Proximal and distal control of the brachial artery was obtained with profunda clamps and a longitudinal arteriotomy was made with an 11 blade and extended with Roosevelt scissors. The vein was spatulated and sewn end-to-side with running 6-0 Prolene suture. At the completion it was flushed and noted to be hemostatic. There was a nice thrill in the fistula and a Doppler signal in the wrist. The heparin was reversed with protamine. The wound was infiltrated with Marcaine and closed with 2-0 Polysorb, 3-0 Polysorb and 4-0 Monocryl. Sponge and needle counts were correct at the end of the case. I was present and scrubbed and performed the entire procedure. MD AVA Hadley/TED /9:34 AM /10:05 AM
[2017-10-29 11:02] VITALS: TEMP 97.4
[2017-10-29 11:29] VITALS: BP 147/70; PULSE 50; RESP 18; O2SAT 99
== END | disposition home or self-care (01) ==
LOC: HCVO 06:55
PROVIDERS: ATTEND Surgery
DX: N18.6 End stage renal disease (principal); J44.9 Chronic obstructive pulmonary disease, unspecified; E11.9 Type 2 diabetes mellitus without complications; E78.5 Hyperlipidemia, unspecified; Z87.891 Personal history of nicotine dependence; Z79.4 Long term (current) use of insulin
CPT/HCPCS: 01844; 36819; 76937; 84132; 86850; 86900; 86901; J1644; J1815; J2250; J2405; J2710; J2720; J3010; J3370; J7040; J7050

== ENCOUNTER 2017-12-02 04:24 | Inpatient (IN) | payer MEDICARE, MEDICAID ==
[~2017-12-02] VITALS: Ht 185.4 cm; Wt 125.7 kg
[2017-12-02] VITALS (10 sets, daily range): BP systolic 95–139; BP diastolic 52–74; PULSE 51–65; RESP 16–18; TEMP 97.9–99.3; O2SAT 93–100
[~2017-12-02 04:24] MED LIST changes: -BUPIVACAINE HCL PF 0.5% 30 ML VIAL ONE; -CHLORHEXIDINE GLUCONATE 2 % 1 PACK (2 CLOTHS) TOPICAL PRN; -DO NOT ADM ANY ANTICOAGULANT DRUGS PRN; -FAMOTIDINE 20 MG/2 ML VIAL ONE; -GLYCOPYRROLATE 1 MG/5 ML SYRINGE IV PUSH ONE; -HEPARIN SODIUM - IV 10,000 UNITS/10 ML VIAL ONE; -HEPARIN-NS/PF INJ 500 ML ONE; -INSULIN HUMAN REGULAR 1,000 UNITS/10 ML VIAL ONE; -INSULIN HUMAN REGULAR 1,000 UNITS/10 ML VIAL SQ PRN; -LACTATED RINGER'S 1000 ML IV PRN; -LIDOCAINE HCL 1% PF 5 ML SYRINGE OTHER ONE; -MELO7.5T27 PO; -METOPROLOL TARTRATE 25 MG TAB PO PRN; -MIDAZOLAM HCL 2 MG/2 ML VIAL ONE; -MORPHINE SULFATE 2 MG/ML INJ IV PRN; -NEOSTIGMINE 5 MG/5 ML SYRINGE IV PUSH ONE; -ONDANSETRON HCL 4 MG/2 ML VIAL IV PUSH ONE; -PHOS667C5 PO; -POVIDONE IODINE 5% (ANTISEPSIS KIT) 4 APPLICATIONS EACH NARE PRN; -PROM1SUP7 RECTAL; -PROPOFOL 200 MG/20 ML AMP IV ONE; -PROTAMINE SULFATE 50 MG/5 ML VIAL ONE; -ROCURONIUM INJ 50 MG/5 ML SYRINGE IV PUSH ONE; -SODIUM CHLOR 0.9% 250 ML INJ 250 ML IV ONE; -SODIUM CHLORID 0.9% 500 ML IV PRN; -THROMBIN (TOPICAL) 20,000 UNIT SPRAY KIT ONE; -VANCOMYCIN HCL 1000 MG VIAL ONE; -ZOFR4TAB3 SL; -ePHEDrine/NS 25 MG/5 ML SYRINGE IV ONE
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
[2017-12-02] MEDS ORDERED: SODIUM CHLORIDE 0.9% FLUSH 10 ML FLUSH IV FLUSH PRN ×3 (04:45→09:15)
[2017-12-02] MEDS ORDERED: ONDANSETRON HCL 4 MG/2 ML VIAL IV PUSH ONE (04:45)
--- NOTE | 2017-12-02 05:12 | RADRPT ---
EXAM DATE/TIME: 12/02/2017 04:52 [facility] COMPARISON: CHEST PA & LAT, October 23, 2017, 12:55. CHEST SINGLE AP, February 11, 2017, 18:27. INDICATIONS : Shortness of breath. MEDICAL HISTORY : Hypertension. Congestive heart failure. Diabetes Renal failure SURGICAL HISTORY : Rt arm A-V fistula ENCOUNTER: Initial ACUITY: 1 day PAIN SCORE: 0/10 LOCATION: Bilateral chest FINDINGS: Portable AP views of the chest demonstrate a normal-sized cardiac silhouette. A right IJ vascular cat heter is present with distal tip in the right atrium. There is airspace consolidation in the right lo wer lung zone and airspace consolidation versus atelectasis at the left lung base. No pneumothorax or pleural effusion is visualized. Lungs and soft tissues demonstrate no acute finding. CONCLUSION: There is airspace consolidation in the right lower lung zone atelectasis or mild consolidation at the left lung base. Dawit Aldridge MD on December 02, 2017 at 5:09 Board Certified Radiologist. This report was verified electronically.
[2017-12-02] MEDS ORDERED: AZITHROMYCIN INJ 500 MG in SODIUM CHLOR 0.9% 250 ML INJ 250 ML IV ONE (05:30)
[2017-12-02] MEDS ORDERED: cefTRIAXone INJ 1,000 MG in SODIUM CHLORIDE 0.9% INJ 100 ML IV ONE (05:30)
[2017-12-02 05:39] LABS: BASOPHIL # 0.1 TH/MM3 (0-0.2); BASOPHIL % 1.1 % (0.0-2.0); EOSINOPHIL # 0.4 TH/MM3 (0-0.4); EOSINOPHIL % 3.4 % (0.0-4.0); HEMATOCRIT 35.6 % (39.0-51.0); HEMOGLOBIN 11.7 GM/DL (13.0-17.0); LYMPHOCYTE # 1.2 TH/MM3 (1.0-4.8); MEAN CELL VOLUME 94.2 FL (80.0-100.0); MEAN PLATELET VOLUME 8.8 FL (7.0-11.0); MONO % 11.5 % (0.0-8.0); MONOCYTE # 1.4 TH/MM3 (0-0.9); PLATELET COUNT 182 TH/MM3 (150-450); RED BLOOD COUNT 3.78 MIL/MM3 (4.50-5.90); RED CELL DISTRIBUTION WIDTH 15.3 % (11.6-17.2); WHITE BLOOD COUNT 12.2 TH/MM3 (4.0-11.0)
[2017-12-02 05:55] LABS: PROTHROMBIN TIME - PATIENT 10.3 SEC (9.8-11.6)
[2017-12-02 05:56] LABS: ALT (GPT) 14 U/L (12-78)
[2017-12-02 06:00] LABS: ALKALINE PHOSPHATASE 70 U/L (45-117); TOTAL BILIRUBIN ADULT 0.3 MG/DL (0.2-1.0); TOTAL PROTEIN 7.7 GM/DL (6.4-8.2); TROPONIN I 0.16 NG/ML (0.02-0.05)
[2017-12-02 06:01] LABS: ALBUMIN 3.3 GM/DL (3.4-5.0); AST (GOT) 20 U/L (15-37); BICARBONATE 21.8 MEQ/L (21.0-32.0); BLOOD UREA NITROGEN 79 MG/DL (7-18); CALCIUM 9.2 MG/DL (8.5-10.1); CHLORIDE 101 MEQ/L (98-107); GLOMERULAR FILTRATION RATE 4 ML/MIN (>89); GLUCOSE,RANDOM 210 MG/DL (74-106); SODIUM (NA) 136 MEQ/L (136-145)
[2017-12-02 06:07] LABS: CREATININE 16.22 MG/DL (0.60-1.30)
[2017-12-02] MEDS ORDERED: SODIUM POLYSTYRENE SULFONATE SUSP 15 GM/60 ML CUP PO ONE (06:15)
[2017-12-02] MEDS ORDERED: SODIUM BICARBONATE 8.4% INJ 50 MEQ/50 ML SYR IV PUSH ONE (06:15)
[2017-12-02] MEDS ORDERED: ACETAMINOPHEN 325 MG TAB PO PRN ×2 (06:30→09:15)
[2017-12-02] MEDS ORDERED: RESP: ALBUTEROL 2.5 MG/IPRATROPIUM 0.5 MG NEB (PRN) NEB ×2 (06:30→09:00)
[2017-12-02] MEDS ORDERED: ONDANSETRON HCL 4 MG/2 ML VIAL IVP PRN (06:30)
[2017-12-02] MEDS ORDERED: BISACODYL 10 MG SUPP RECTAL PRN (06:30)
[2017-12-02] MEDS ORDERED: GLUCAGON 1 MG/ML VIAL OTHER PRN (06:30)
[2017-12-02] MEDS ORDERED: ACETAMINOPHEN/HYDROcodone 325 MG/10 MG TAB PO PRN (06:30)
[2017-12-02] MEDS ORDERED: ALPRAZolam 0.25 MG TAB PO PRN (06:30)
[2017-12-02] MEDS ORDERED: DEXTROSE 50% IN WATER 50 ML VIAL(D50) IV PUSH PRN (06:30)
[2017-12-02] MEDS ORDERED: SENNOSIDES 8.6 MG TAB PO PRN (06:30)
[2017-12-02] MEDS ORDERED: LACTULOSE SYRUP 20 GM/30 ML CUP PO PRN (06:30)
[2017-12-02] MEDS ORDERED: MAGNESIUM HYDROXIDE SUSP 30 ML CUP PO PRN (06:30)
[2017-12-02] MEDS ORDERED: ACETAMINOPHEN/HYDROcodone 325 MG/5 MG TAB PO PRN (06:30)
[2017-12-02] MEDS ORDERED: ZOLPIDEM TARTRATE 10 MG TAB PO PRN (06:30)
[2017-12-02] MEDS ORDERED: SODIUM BICARBONATE 8.4% INJ 50 ML ONE (06:39)
[2017-12-02] MEDS: INSULIN ASPART SUPPLEMENTAL SCALE SQ SCH ×4 (08:00→20:36)
[2017-12-02] MEDS ORDERED: ASPIRIN 81 MG CHEW TAB CHEW ONE (09:00)
[2017-12-02] MEDS: DOCUSATE SODIUM 50 MG/SENNA 8.6 MG TAB PO SCH ×2 (09:00→20:36)
[2017-12-02] MEDS ORDERED: ASPIRIN 81 MG CHEW TAB CHEW SCH (09:00)
--- NOTE | 2017-12-02 09:05 | HHI.HP ---
[facility] Service [facility] Primary Care Physician Meghna Cedillo MD Admission Diagnosis pneumonia, fluid overload, end-stage renal disease, hyperkalemia Diagnoses: Travel History International Travel<30 Days: No Contact w/Intl Traveler <30 Da: No Traveled to Known Affected Are: No History of Present Illness 57-year-old male with a history of the, hypertension, end-stage renal disease on hemodialysis Saturday, Saturday, Saturday who presents with gradually worsening shortness of breath starting 2 days ago. Patient reports missing dialysis on Saturday. He reports productive cough over the past 3 days, however is not visualized sputum. He reports dull constant right upper chest pain over the past few days which has resolved on presentation to the ER. Patient denies any fevers, chills, sore throat, nausea, vomiting. He does report that he had his brother's on Saturday, has been drinking a lot of fluids over the weekend. Denies any alcohol intake. Review of Systems Performed and negative except for history of present illness and past medical history. Past Family Social History Past Medical History End-stage renal disease on dialysis Saturday COPD Diabetes mellitus Hyperlipidemia Hypertension Atrial fibrillation Hepatitis C status post treatment Past Surgical History I lateral eye surgery only Intestinal repair 2000 AV fistula placement Right ankle surgery Reported Medications Reported Meds & Active Scripts Active Oxycodone (Oxycodone HCl) 15 Mg Tab 15 Mg PO Q6H PRN Reported Calcium Acetate (Phosphate Binder) 667 Mg Cap 1,334 Mg PO TID Metoprolol Tartrate 50 Mg Tab 50 Mg PO BID Gabapentin 600 Mg Tab 600 Mg PO HS Novolin R Inj (Insulin Human Regular) 1,000 Unit/10 Ml Vial 10 Units SQ TID Aspirin 81 Mg Chew 81 Mg CHEW DAILY Xanax (Alprazolam) 0.25 Mg Tab 0.25 Mg PO Q6H PRN Ventolin Hfa 18 GM Inh (Albuterol Sulfate) 90 Mcg/Act Aer 1 Puff INH Q4H PRN Lantus Inj (Insulin Glargine) 1,000 Unit/10 Ml Vial 70 Units SQ HS Ambien (Zolpidem Tartrate) 10 Mg Tab 10 Mg PO HS PRN Allergies: Coded Allergies: No Known Allergies (Verified Allergy, Unknown, 12/02/17) Family History Mother with diabetes. Father unknown medical conditions. Social History Patient reports being a past smoker. Denies any current use. Drinks socially. Denies any illicit drugs. Physical Exam Vital Signs Vital Signs Date Time Temp Pulse Resp B/P (MAP) Pulse Ox O2 Delivery O2 Flow Rate FiO2 12/02/17 08:32 12/02/17 06:57 51 18 95/52 (66) 100 Nasal Cannula 2.00 12/02/17 04:48 95 Room Air 12/02/17 04:29 99.3 65 18 139/60 (86) 93 Physical Exam GENERAL: This is a well-nourished, well-developed patient, in no apparent distress. Alert and oriented 3. SKIN: No rashes, ecchymoses or lesions. Cool and dry. HEAD: Atraumatic. Normocephalic. No temporal or scalp tenderness. EYES: Pupils equal round and reactive. Extraocular motions intact. No scleral icterus. No injection or drainage. ENT: Nose without bleeding, purulent drainage or septal hematoma. Throat without erythema, tonsillar hypertrophy or exudate. Uvula midline. Airway patent. NECK: Trachea midline. No JVD or lymphadenopathy. Supple, nontender, no meningeal signs. CARDIOVASCULAR: Regular rate and rhythm without murmurs, gallops, or rubs. RESPIRATORY: Crackles bilaterally at the bases. No rhonchi. No wheezing. GASTROINTESTINAL: Abdomen soft, non-tender, nondistended. No hepato-splenomegaly , or palpable masses. No guarding. MUSCULOSKELETAL: Extremities without clubbing, cyanosis.No joint tenderness, effusion. Trace peripheral edema. No calf tenderness. Negative Homans sign bilaterally. NEUROLOGICAL: Awake and alert. Cranial nerves II through XII intact. Motor and sensory grossly within normal limits. Five out of 5 muscle strength in all muscle groups. Normal speech. Laboratory Laboratory Tests Test 12/02/17 04:54 White Blood Count 12.2 Red Blood Count 3.78 Hemoglobin 11.7 Hematocrit 35.6 Mean Corpuscular Volume 94.2 Mean Corpuscular Hemoglobin 31.0 Mean Corpuscular Hemoglobin Concent 33.0 Red Cell Distribution Width 15.3 Platelet Count 182 Mean Platelet Volume 8.8 Neutrophils (%) (Auto) 74.0 Lymphocytes (%) (Auto) 10.0 Monocytes (%) (Auto) 11.5 Eosinophils (%) (Auto) 3.4 Basophils (%) (Auto) 1.1 Neutrophils # (Auto) 9.0 Lymphocytes # (Auto) 1.2 Monocytes # (Auto) 1.4 Eosinophils # (Auto) 0.4 Basophils # (Auto) 0.1 CBC Comment DIFF FINAL Differential Comment Prothrombin Time 10.3 Prothromb Time International Ratio 1.0 Activated Partial Thromboplast Time 28.5 Blood Urea Nitrogen 79 Creatinine 16.22 Random Glucose 210 Total Protein 7.7 Albumin 3.3 Calcium Level 9.2 Alkaline Phosphatase 70 Aspartate Amino Transf (AST/SGOT) 20 Alanine Aminotransferase (ALT/SGPT) 14 Total Bilirubin 0.3 Sodium Level 136 Potassium Level 6.0 Chloride Level 101 Carbon Dioxide Level 21.8 Anion Gap 13 Estimat Glomerular Filtration Rate 4 Total Creatine Kinase 109 Creatine Kinase MB 4.0 Troponin I 0.16 B-Type Natriuretic Peptide 1828 Date/Time Source Procedure Growth Status 12/02/17 05:50 Blood Peripheral Aerobic Blood Culture Pending Received 12/02/17 05:50 Blood Peripheral Anaerobic Blood Culture Pending Received 12/02/17 04:54 Nasal Washing Influenza Types A,B Antigen (KALPESH) - Final NEGATIVE FOR FLU A AND B ANTIGEN.... Complete Result Diagram: 12/02/17 0454 12/02/17 0454 Caprini VTE Risk Assessment Caprini VTE Risk Assessment: Mod/High Risk (score >= 2) Caprini Risk Assessment Model Point Value = 1 Point Value = 2 Point Value = 3 Point Value = 5 Age 41-60 Minor surgery BMI > 25 kg/m2 Swollen legs Varicose veins or History of unexplained or recurrent spontaneous Oral contraceptives or hormone replacement Sepsis (< 1 month) Serious lung disease, including pneumonia (< 1 month) Abnormal pulmonary function Acute myocardial infarction Congestive heart failure (< 1 month) History of inflammatory bowel disease Medical patient at bed rest Age 61-74 Arthroscopic surgery Major open surgery (> 45 min) Laparoscopic surgery (> 45 min) Malignancy Confined to bed (> 72 hours) Immobilizing plaster cast Central venous access Age >= 75 History of VTE Family history of VTE Factor V Leiden Prothrombin [id number] Lupus anticoagulant Anticardiolipin antibodies Elevated serum homocysteine Heparin-induced thrombocytopenia Other congenital or acquired thrombophilia Stroke (< 1 month) Elective arthroplasty Hip, pelvis, or leg fracture Acute spinal cord injury (< 1 month) Prophylaxis Regimen Total Risk Factor Score Risk Level Prophylaxis Regimen 0-1 Low Early ambulation 2 Moderate Order ONE of the following: *Sequential Compression Device (SCD) *Heparin 5000 units SQ BID 3-4 Higher Order ONE of the following medications: *Heparin 5000 units SQ TID *Enoxaparin/Lovenox 40 mg SQ daily (WT < 150 kg, CrCl > 30 mL/min) *Enoxaparin/Lovenox 30 mg SQ daily (WT < 150 kg, CrCl > 10-29 mL/min) *Enoxaparin/Lovenox 30 mg SQ BID (WT < 150 kg, CrCl > 30 mL/min) AND/OR *Sequential Compression Device (SCD) 5 or more Highest Order ONE of the following medications: *Heparin 5000 units SQ TID (Preferred with Epidurals) *Enoxaparin/Lovenox 40 mg SQ daily (WT < 150 kg, CrCl > 30 mL/min) *Enoxaparin/Lovenox 30 mg SQ daily (WT < 150 kg, CrCl > 10-29 mL/min) *Enoxaparin/Lovenox 30 mg SQ BID (WT < 150 kg, CrCl > 30 mL/min) AND *Sequential Compression Device (SCD) Assessment and Plan Assessment and Plan //CHF exacerbation/fluid overload = Having missed dialysis on Saturday. Bilateral infiltrates on chest x-ray = BNP 1828 = Consult nephrology for dialysis. -Order echocardiogram, consult cardiology //End-stage renal disease on dialysis MWF = Needs dialysis. Nephrology consulted. -Complaints of dull right-sided chest pain. Troponin elevation -EKG with slightly peaked T waves, , however no change from baseline. = Obviously troponin elevation could be secondary to renal failure, however due to risk factors, we'll consult cardiology. Trend troponins and EKGs. //Hyperkalemia. Potassium 6.0 on admission. Bicarbonate, Kayexalate given. Nephrology consulted. Needs dialysis. //Leukocytosis. 12.2. Chest x-ray with bilateral infiltrates. Patient did receive antibiotics, however no other signs of infection. Secondary to stress. //Hypertension = The pressure acceptable. Continue metoprolol. //Diabetes mellitus = Glucose 210 on admission Diabetic diet, insulin sliding scale. Continue to monitor blood sugars //COPD. Does not appear to be in acute exacerbation due tourine. //paroxysmal Atrial fibrillation -EKG with sinus rhythm. -Continue aspirin. Cardiology will be consulted. //Prophylaxis. heparin. Physician Certification 2 Midnight Certification Type: Admission for Inpatient Services Order for Inpatient Services The services are ordered in accordance with Medicare regulations or non- Medicare payer requirements, as applicable. In the case of services not specified as inpatient-only, they are appropriately provided as inpatient services in accordance with the 2-midnight benchmark. Estimated LOS (days): 3 days is the estimated time the patient will need to remain in the hospital, assuming treatment plan goals are met and no additional complications. Post-Hospital Plan: Hahira Javier Savage MD Dec 02, 2017 09:05
[2017-12-02] MEDS ORDERED: SODIUM CHLOR 0.9% 1000 ML INJ 1,000 ML OTHER PRN ×2 (09:11)
[2017-12-02] MEDS ORDERED: SODIUM CHLOR 0.9% 1000 ML INJ 1,000 ML IV PRN (09:11)
[2017-12-02] MEDS ORDERED: GELATIN 12 MM/7 MM FOAM TOP PRN (09:15)
[2017-12-02] MEDS ORDERED: cloNIDine HCL 0.1 MG TAB PO PRN (09:15)
[2017-12-02] MEDS ORDERED: HEPARIN SODIUM - IV 10,000 UNITS/10 ML VIAL PRN (09:15)
[2017-12-02] MEDS ORDERED: ONDANSETRON HCL 4 MG/2 ML VIAL IV PUSH PRN (09:15)
[2017-12-02] MEDS ORDERED: ALBUMIN 25% INJ 100 ML IV PRN (09:15)
[2017-12-02] MEDS ORDERED: GENTAMICIN SULFATE 20 MG/2 ML VIAL OTHER PRN (09:15)
[2017-12-02] MEDS ORDERED: HEPARIN SODIUM - IV 10,000 UNITS/10 ML VIAL IV FLUSH PRN (09:15)
[2017-12-02] MEDS ORDERED: NITROGLYCERIN 0.4 MG SL 25 TABS/BTL SL PRN (09:15)
[2017-12-02] MEDS ORDERED: diphenhydrAMINE HCL 25 MG CAP PO PRN (09:15)
[2017-12-02] MEDS ORDERED: MANNITOL 12.5 GM/50 ML VIAL IV PRN (09:15)
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
--- NOTE | 2017-12-02 11:04 | PD.CONS ---
HPI Consult Requested By Primary Care Physician Meghna Cedillo MD History of Present Illness 57-year-old male with a past medical history of ESRD on HD, COPD, DM, HLD, HTN, hep C, arrhythmia who presented for shortness of breath. The patient missed his hemodialysis on Saturday he says he was at a . He states that since Saturday he's been having progressively worsening shortness of breath. He had associated right upper chest pain with the shortness of breath. Symptoms were exacerbated with exertion. The patient is seen during hemodialysis and states that his symptoms are seeming to improve with dialysis. He states the chest pain and shortness of breath have resolved. He denies any palpitations. He reports a history of unspecified arrhythmia, denies A. fib. He follows with cardiology, Dr. Richards, as outpatient. Reports he had a normal nuclear stress test last year as part of his kidney transplant workup. (Catrachito Alex) Review of Systems Negative except as stated in the history of present illness (Catrachito Alex) Past Family Social History Allergies: Coded Allergies: No Known Allergies (Verified Allergy, Unknown, 12/02/17) Past Medical History End-stage renal disease on dialysis Saturday COPD Diabetes mellitus Hyperlipidemia Hypertension Unspecified arrhythmia Hepatitis C status post treatment Past Surgical History Eye surgery Intestinal repair 2000 AV fistula placement Right ankle surgery Reported Medications Reported Meds & Active Scripts Active Oxycodone (Oxycodone HCl) 15 Mg Tab 15 Mg PO Q6H PRN Reported Calcium Acetate (Phosphate Binder) 667 Mg Cap 1,334 Mg PO TID Metoprolol Tartrate 50 Mg Tab 50 Mg PO BID Gabapentin 600 Mg Tab 600 Mg PO HS Novolin R Inj (Insulin Human Regular) 1,000 Unit/10 Ml Vial 10 Units SQ TID Aspirin 81 Mg Chew 81 Mg CHEW DAILY Xanax (Alprazolam) 0.25 Mg Tab 0.25 Mg PO Q6H PRN Ventolin Hfa 18 GM Inh (Albuterol Sulfate) 90 Mcg/Act Aer 1 Puff INH Q4H PRN Lantus Inj (Insulin Glargine) 1,000 Unit/10 Ml Vial 70 Units SQ HS Ambien (Zolpidem Tartrate) 10 Mg Tab 10 Mg PO HS PRN Active Ordered Medications Current Medications Medications (Trade) Dose Ordered Sig/Katelyn Route Start Time Stop Time Status Last Admin Ceftriaxone Sodium 1000 mg/ Sodium Chloride 100 ml @ 200 mls/hr Q24H IV 12/03/17 06:00 Azithromycin 500 mg/Sodium Chloride 250 ml @ 250 mls/hr Q24H IV 12/03/17 05:00 (Duoneb Neb) 1 ampule Q4HR NEB PRN NEB 12/02/17 06:30 (NS Flush) 2 ml UNSCH PRN IV FLUSH 12/02/17 06:30 (NS Flush) 2 ml BID IV FLUSH 12/02/17 09:00 (Zofran Inj) 4 mg Q6H PRN IVP 12/02/17 06:30 (Heparin Inj) 5,000 units Q12H SQ 12/02/17 09:00 (Tylenol) 650 mg Q6H PRN PO 12/02/17 06:30 ([place] 5-325 Mg) 1 tab Q4H PRN PO 12/02/17 06:30 ([place] 10-325 Mg) 1 tab Q4H PRN PO 12/02/17 06:30 (Kiara-Colace) 1 tab BID PO 12/02/17 09:00 (Milk Of Magnesia Liq) 30 ml Q12H PRN PO 12/02/17 06:30 (Senokot) 17.2 mg Q12H PRN PO 12/02/17 06:30 (Dulcolax Supp) 10 mg DAILY PRN RECTAL 12/02/17 06:30 (Lactulose Liq) 30 ml DAILY PRN PO 12/02/17 06:30 (D50w (Vial) Inj) 50 ml UNSCH PRN IV PUSH 12/02/17 06:30 (Glucagon Inj) 1 mg UNSCH PRN OTHER 12/02/17 06:30 (NovoLOG SUPPLEMENTAL SCALE) 1 ACHS SLIDING SCALE SQ 12/02/17 08:00 (Xanax) 0.25 mg Q6H PRN PO 12/02/17 06:30 (Phoslo) 1,334 mg TID PO 12/02/17 09:00 (Neurontin) 600 mg HS PO 12/02/17 21:00 (Levemir Inj) 40 units HS SQ 12/02/17 21:00 (Lopressor) 50 mg BID PO 12/02/17 09:00 (Ambien) 10 mg HS PRN PO 12/02/17 06:30 (Duoneb Neb) 1 ampule Q6HR NEB PRN NEB 12/02/17 09:00 (Aspirin Chew) 81 mg DAILY CHEW 12/03/17 09:00 Sodium Chloride 1,000 ml @ 0 mls/hr Q0M PRN OTHER 12/02/17 09:11 (Heparin Inj) 8,000 units UNSCH PRN IV FLUSH 12/02/17 09:15 Sodium Chloride 1,000 ml @ 200 mls/hr Q5H PRN IV 12/02/17 09:11 Sodium Chloride 1,000 ml @ 0 mls/hr Q0M PRN OTHER 12/02/17 09:11 (Mannitol Inj) 12.5 gm UNSCH PRN IV 12/02/17 09:15 Albumin Human 100 ml @ 60 mls/hr UNSCH PRN IV 12/02/17 09:15 (NS Flush) 5 ml UNSCH PRN IV FLUSH 12/02/17 09:15 (Heparin Inj) UNSCH PRN .XX 12/02/17 09:15 (Gentamicin Inj) 20 mg UNSCH PRN OTHER 12/02/17 09:15 (Zofran Inj) 4 mg UNSCH PRN IV PUSH 12/02/17 09:15 (Tylenol) 650 mg UNSCH PRN PO 12/02/17 09:15 (Benadryl) 25 mg UNSCH PRN PO 12/02/17 09:15 (Nitrostat Sl) 0.4 mg UNSCH PRN SL 12/02/17 09:15 (Catapres) 0.1 mg UNSCH PRN PO 12/02/17 09:15 (Gelfoam 12 Mm/7 Mm Top) 1 foam UNSCH PRN TOP 12/02/17 09:15 Family History Mother with diabetes. Social History Patient reports being a past smoker. Denies any current use. Drinks socially. Denies any illicit drugs. (Catrachito Alex) Physical Exam Vital Signs Vital Signs Date Time Temp Pulse Resp B/P (MAP) Pulse Ox O2 Delivery O2 Flow Rate FiO2 12/02/17 09:24 100 Nasal Cannula 2.00 12/02/17 08:32 12/02/17 06:57 51 18 95/52 (66) 100 Nasal Cannula 2.00 12/02/17 04:48 95 Room Air 12/02/17 04:29 99.3 65 18 139/60 (86) 93 Physical Exam GENERAL: Well-developed well-nourished. In no acute distress. NECK: No carotid bruits. No JVD. CARDIOVASCULAR: Regular rate and rhythm. No murmur appreciated. RESPIRATORY: No accessory muscle use. Clear to auscultation. Breath sounds equal bilaterally. MUSCULOSKELETAL: No clubbing or cyanosis. Trace edema. NEUROLOGICAL: Awake and alert. Normal speech. Laboratory Laboratory Tests Test 12/02/17 04:54 12/02/17 09:47 White Blood Count 12.2 Red Blood Count 3.78 Hemoglobin 11.7 Hematocrit 35.6 Mean Corpuscular Volume 94.2 Mean Corpuscular Hemoglobin 31.0 Mean Corpuscular Hemoglobin Concent 33.0 Red Cell Distribution Width 15.3 Platelet Count 182 Mean Platelet Volume 8.8 Neutrophils (%) (Auto) 74.0 Lymphocytes (%) (Auto) 10.0 Monocytes (%) (Auto) 11.5 Eosinophils (%) (Auto) 3.4 Basophils (%) (Auto) 1.1 Neutrophils # (Auto) 9.0 Lymphocytes # (Auto) 1.2 Monocytes # (Auto) 1.4 Eosinophils # (Auto) 0.4 Basophils # (Auto) 0.1 CBC Comment DIFF FINAL Differential Comment Prothrombin Time 10.3 Prothromb Time International Ratio 1.0 Activated Partial Thromboplast Time 28.5 Blood Urea Nitrogen 79 Creatinine 16.22 Random Glucose 210 Total Protein 7.7 Albumin 3.3 Calcium Level 9.2 Alkaline Phosphatase 70 Aspartate Amino Transf (AST/SGOT) 20 Alanine Aminotransferase (ALT/SGPT) 14 Total Bilirubin 0.3 Sodium Level 136 Potassium Level 6.0 Chloride Level 101 Carbon Dioxide Level 21.8 Anion Gap 13 Estimat Glomerular Filtration Rate 4 Total Creatine Kinase 109 Creatine Kinase MB 4.0 Troponin I 0.16 B-Type Natriuretic Peptide 1828 Date/Time Source Procedure Growth Status 12/02/17 05:50 Blood Peripheral Aerobic Blood Culture Pending Received 12/02/17 05:50 Blood Peripheral Anaerobic Blood Culture Pending Received 12/02/17 04:54 Nasal Washing Influenza Types A,B Antigen (KALPESH) - Final NEGATIVE FOR FLU A AND B ANTIGEN.... Complete (Catrachito Alex) Result Diagram: 2/5/18 0454 12/02/17453 Imaging Last Impressions Chest X-Ray 12/02/17440 Signed Impressions: Service Date/Time: Saturday, December 02, 2017 04:52 - CONCLUSION: There is airspace consolidation in the right lower lung zone atelectasis or mild consolidation at the left lung base. Dawit Aldridge MD (Catrachito Alex) Assessment and Plan Assessment and Plan 57-year-old male with a past medical history of ESRD on HD, COPD, DM, HLD, HTN, hep C, arrhythmia who presented for shortness of breath. The patient missed his hemodialysis on Saturday he says he was at a . He states that since Saturday he's been having progressively worsening shortness of breath. He had associated right upper chest pain with the shortness of breath. Symptoms were exacerbated with exertion. The patient is seen during hemodialysis and states that his symptoms are seeming to improve with dialysis. He states the chest pain and shortness of breath have resolved. He denies any palpitations. He reports a history of unspecified arrhythmia, denies A. fib. He follows with cardiology, Dr. Richards, as outpatient. Reports he had a normal nuclear stress test last year as part of his kidney transplant workup. Volume overload due to missed hemodialysis: Currently receiving hemodialysis and symptoms improving. Echocardiogram has been ordered. Atypical chest pain: Troponin minimally elevated at 0.16, likely due to ESRD. EKG with regular rhythm and no ischemic changes. (Catrachito Alex) Assessment and Plan agree with above will sign off call with further questions fu with dr richards. (Crescencio Peng MD) Catrachito Alex Dec 02, 2017 11:04 Crescencio Peng MD Dec 02, 2017 14:32
[2017-12-02] MEDS: CALCIUM ACETATE 667 MG CAP PO SCH ×3 (13:00→17:14)
[2017-12-02] MEDS: METOPROLOL TARTRATE 50 MG TAB PO SCH ×2 (13:13→20:35)
[2017-12-02] MEDS: HEPARIN SODIUM - SQ 10,000 UNITS/ML VIAL SQ SCH ×2 (13:14→20:35)
[2017-12-02] MEDS: SODIUM CHLORIDE 0.9% FLUSH 10 ML FLUSH IV FLUSH SCH ×2 (13:14→20:35)
--- NOTE | 2017-12-02 16:52 | HHI.PR ---
Subjective Remarks NOT SEEN Objective Vitals Vital Signs Date Time Temp Pulse Resp B/P (MAP) Pulse Ox O2 Delivery O2 Flow Rate FiO2 12/02/17 16:12 98.2 57 18 123/63 (83) 97 12/02/17 13:04 97.9 60 17 127/74 (91) 98 12/02/17 09:24 100 Nasal Cannula 2.00 12/02/17 08:32 12/02/17 06:57 51 18 95/52 (66) 100 Nasal Cannula 2.00 12/02/17 04:48 95 Room Air 12/02/17 04:29 99.3 65 18 139/60 (86) 93 I/O 12/01/17 12/01/17 12/01/17 12/02/17 12/02/17 12/02/17 07:00 15:00 23:00 07:00 15:00 23:00 Intake Total 100 ml 250 ml Output Total 5000 ml Balance 100 ml -4750 ml Intake IV Total 100 ml 250 ml Output Hemodialysis 5000 ml Result Diagram: 12/02/1745312/02/17 045 Imaging Last Impressions Chest X-Ray 12/02/17440 Signed Impressions: Service Date/Time: Saturday, December 02, 2017 04:52 - CONCLUSION: There is airspace consolidation in the right lower lung zone atelectasis or mild consolidation at the left lung base. Dawit Aldridge MD Objective Remarks GENERAL: This is a well-nourished, well-developed patient, in no apparent distress. Alert and oriented 3. SKIN: No rashes, ecchymoses or lesions. Cool and dry. HEAD: Atraumatic. Normocephalic. No temporal or scalp tenderness. EYES: Pupils equal round and reactive. Extraocular motions intact. No scleral icterus. No injection or drainage. ENT: Nose without bleeding, purulent drainage or septal hematoma. Throat without erythema, tonsillar hypertrophy or exudate. Uvula midline. Airway patent. NECK: Trachea midline. No JVD or lymphadenopathy. Supple, nontender, no meningeal signs. CARDIOVASCULAR: Regular rate and rhythm without murmurs, gallops, or rubs. RESPIRATORY: Crackles bilaterally at the bases. No rhonchi. No wheezing. GASTROINTESTINAL: Abdomen soft, non-tender, nondistended. No guarding. MUSCULOSKELETAL: Extremities without clubbing, cyanosis.No joint tenderness, effusion. Trace peripheral edema. No calf tenderness. Negative Homans sign bilaterally. NEUROLOGICAL: Awake and alert. Cranial nerves II through XII intact. Motor and sensory grossly within normal limits. Five out of 5 muscle strength in all muscle groups. Normal speech. Procedures none A/P Problem List: (1) Pneumonia ICD Code: J18.9 - Pneumonia, unspecified organism Status: Acute (2) End stage renal disease ICD Code: N18.6 - End stage renal disease Status: Acute Assessment and Plan Acute on chronic diastolic CHF exacerbation/fluid overload 2/2 noncompliance. Consult nephrology for dialysis. Order echocardiogram, consult cardiology End-stage renal disease on dialysis MWF. Needs dialysis. Nephrology consulted. Atypical chest pain. Troponin elevation and EKG with slightly peaked T waves, however no change from baseline. Troponin elevation could be secondary to renal failure per cardiology. Negative stress test last year. Op F/u with Dr Richards Hyperkalemia. Potassium 6.0 on admission. Bicarbonate, Kayexalate given. Nephrology consulted. Needs dialysis. Leukocytosis. 12.2. Chest x-ray with bilateral infiltrates. Patient did receive antibiotics, however no other signs of infection. Secondary to stress. Hypertension. Continue metoprolol. Diabetes mellitus. Diabetic diet, insulin sliding scale. Continue to monitor blood sugars COPD. Arrhythmia denies hx of Atrial fibrillation. EKG with sinus rhythm. Continue aspirin. Cardiology has been consulted. Prophylaxis with SQ heparin. Problem Qualifiers (1) Pneumonia: Qualified Codes: J18.1 - Lobar pneumonia, unspecified organism Dae Wong MD Dec 02, 2017 16:52
[2017-12-02] MEDS ORDERED: GABAPENTIN 300 MG CAP PO SCH (21:00)
[2017-12-02] MEDS ORDERED: INSULIN DETEMIR 100 UNITS/ML VIAL SQ SCH (21:00)
--- NOTE | 2017-12-02 22:03 | EKG ---
Date Performed: 12/02/2017 Time Performed: 04:42:56 PTAGE: 57 years EKG: Sinus rhythm . Long first degre AV block LEFT ANTERIOR FASCICULAR BLOCK POSSIBLE LATERAL MYOCARDIAL INFARCTION ABN ORMAL ECG PREVIOUS TRACING : 10/23/2017 11.37 DOCTOR: Brendon Moore Interpretating Date/Time 12/02/2017 21:59:14
[2017-12-03] VITALS (8 sets, daily range): BP systolic 106–150; BP diastolic 53–70; PULSE 54–58; RESP 16–18; TEMP 97.9–98.6; O2SAT 94–98
[2017-12-03] MEDS ORDERED: AZITHROMYCIN INJ 500 MG in SODIUM CHLOR 0.9% 250 ML INJ 250 ML IV SCH (05:00)
[2017-12-03 05:58] LABS: AUTOMATED NEUTROPHIL # 3.7 TH/MM3 (1.8-7.7); BASOPHIL # 0.1 TH/MM3 (0-0.2); BASOPHIL % 1.1 % (0.0-2.0); EOSINOPHIL # 0.7 TH/MM3 (0-0.4); HEMATOCRIT 34.1 % (39.0-51.0); HEMOGLOBIN 11.3 GM/DL (13.0-17.0); LYMPH % 22.7 % (9.0-44.0); LYMPHOCYTE # 1.6 TH/MM3 (1.0-4.8); MEAN CELL VOLUME 93.3 FL (80.0-100.0); MEAN CORPUSCULAR HEMOGLOBIN 30.9 PG (27.0-34.0); MEAN CORPUSCULAR HGB CONC 33.2 % (32.0-36.0); MONO % 12.4 % (0.0-8.0); MONOCYTE # 0.8 TH/MM3 (0-0.9); NEUT % 53.8 % (16.0-70.0); PLATELET COUNT 159 TH/MM3 (150-450); RED BLOOD COUNT 3.65 MIL/MM3 (4.50-5.90); RED CELL DISTRIBUTION WIDTH 15.3 % (11.6-17.2); WHITE BLOOD COUNT 6.8 TH/MM3 (4.0-11.0)
[2017-12-03] MEDS ORDERED: cefTRIAXone INJ 1,000 MG in SODIUM CHLORIDE 0.9% INJ 100 ML IV SCH (06:00)
[2017-12-03 06:24] LABS: ALKALINE PHOSPHATASE 63 U/L (45-117); ALT (GPT) 10 U/L (12-78); AST (GOT) 9 U/L (15-37); BICARBONATE 26.9 MEQ/L (21.0-32.0); BLOOD UREA NITROGEN 63 MG/DL (7-18); CALCIUM 9.1 MG/DL (8.5-10.1); CHLORIDE 98 MEQ/L (98-107); GLOMERULAR FILTRATION RATE 4 ML/MIN (>89); GLUCOSE,RANDOM 178 MG/DL (74-106); SODIUM (NA) 137 MEQ/L (136-145); TOTAL BILIRUBIN ADULT 0.3 MG/DL (0.2-1.0); TOTAL PROTEIN 7.1 GM/DL (6.4-8.2)
[2017-12-03 06:28] LABS: CREATININE 13.88 MG/DL (0.60-1.30)
[2017-12-03] MEDS: INSULIN ASPART SUPPLEMENTAL SCALE SQ SCH ×2 (08:00→12:00)
[2017-12-03] MEDS: SODIUM CHLORIDE 0.9% FLUSH 10 ML FLUSH IV FLUSH SCH (08:34)
[2017-12-03] MEDS: METOPROLOL TARTRATE 50 MG TAB PO SCH (08:34)
[2017-12-03] MEDS: DOCUSATE SODIUM 50 MG/SENNA 8.6 MG TAB PO SCH (08:35)
[2017-12-03] MEDS: CALCIUM ACETATE 667 MG CAP PO SCH ×2 (08:35→13:05)
[2017-12-03] MEDS: HEPARIN SODIUM - SQ 10,000 UNITS/ML VIAL SQ SCH (08:40)
[2017-12-03] MEDS ORDERED: ASPIRIN 81 MG CHEW TAB CHEW SCH (09:00)
[2017-12-03] MEDS ORDERED: PNEUMOCOCCAL POLYVALENT INJ 25 MCG/0.5 ML SYR IM ONE (10:00)
--- NOTE | 2017-12-03 12:07 | ECHRPT ---
Indication: heart failure CONCLUSIONS Normal left ventricular size. The left ventricular systolic function is low normal with an estimated ejection fraction in the rang e of 50- 55%. The left atrial size is mildly dilated. Mild mitral valve regurgitation. No aortic valve regurgitation. No aortic valve stenosis. There is mild tricuspid valve regurgitation. The estimated pulmonary arterial pressure is 44.8 mmHg. BP: / HR: Rhythm: MEASUREMENTS (Male / Female) Normal Values Technical Quality:Good 2D ECHO LV Diastolic Diameter PLAX 4.9 cm 4.2 - 5.9 / 3.9 - 5.3 cm LV Systolic Diameter PLAX 3.9 cm IVS Diastolic Thickness 1.7 cm 0.6 - 1.0 / 0.6 - 0.9 cm LVPW Diastolic Thickness 1.5 cm 0.6 - 1.0 / 0.6 - 0.9 cm LV Relative Wall Thickness 0.7 RV Internal Dim ED PLAX 4.1 cm M-MODE Aortic Root Diameter MM 4.0 cm LA Systolic Diameter MM 4.7 cm LA Ao Ratio MM 1.2 AV Cusp Separation MM 2.6 cm DOPPLER Mitral E Point Velocity 55.8 cm/s Mitral A Point Velocity 64.2 cm/s Mitral E to A Ratio 0.9 LV E' Lateral Velocity 6.2 cm/s Mitral E to LV E' Lateral Ratio 8.9 LV E' Septal Velocity 6.5 cm/s Mitral E to LV E' Septal Ratio 8.5 TR Peak Velocity 295.0 cm/s TR Peak Gradient 34.8 mmHg Right Atrial Pressure 10.0 mmHg Pulmonary Artery Systolic Pressu 44.8 mmHg Right Ventricular Systolic Press 44.8 mmHg FINDINGS LEFT VENTRICLE Normal left ventricular size. The left ventricular systolic function is low normal with an estimated ejection fraction in the rang e of 50- 55%. RIGHT VENTRICLE Normal right ventricular size and systolic function. LEFT ATRIUM The left atrial size is mildly dilated. RIGHT ATRIUM The right atrial size is normal. ATRIAL SEPTUM Normal atrial septal thickness without atrial level shunting by limited color doppler interrogation. AORTA The aortic root and proximal ascending aorta are normal in size on limited imaging. MITRAL VALVE Structurally normal mitral valve. Mild mitral valve regurgitation. AORTIC VALVE Trileaflet aortic valve. No aortic valve regurgitation. No aortic valve stenosis. TRICUSPID VALVE Structurally normal tricuspid valve. There is mild tricuspid valve regurgitation. The estimated pulmonary arterial pressure is 44.8 mmHg. PULMONARY VALVE No pulmonary valve regurgitation or stenosis. VESSELS The inferior vena cava is normal in size. PERICARDIUM No pericardial effusion. Crescencio Peng MD, FACC (Electronically Signed) Final Date:03 December 2017 12:06
--- NOTE | 2017-12-03 14:23 | HHI.NPPN ---
Subjective Renal Failure: End Stage Renal Disease History of Present Illness Patient is a 57-year-old male who presents to the ED for increased SOB, cough, chest tightness, nausea, and vomiting. He missed dialysis on Saturday. Has a past medical history of ESRD on HD (MWF), followed by medical billing service Dr. Ramirez, hypertension, and diabetes. He was found to be hyperkalemic at 6.0 and sodium bicarbonate and Kayexalate was given. Chest Xray there is airspace consolidation in the right lower lung zone atelectasis or mild consolidation at the left lung base. Rocephin and azithromycin given. BNP elevated at 1828 and trop of 0.16. Additional Remarks Resting comfortably. Denies any SOB or CP (Ruth Dougherty) Review of Systems Respiratory Respiratory Remarks Denies SOB (Ruth Dougherty) Cardiovascular Cardiac Remarks Denies CP (Ruth Dougherty) Gastrointestinal GI Remarks No abdominal pain (Ruth Dougherty) Skin Skin Remarks left foot with heel crack (Ruth Dougherty) Objective Data Data Vital Signs Date Time Temp Pulse Resp B/P (MAP) Pulse Ox O2 Delivery O2 Flow Rate FiO2 12/03/17 12:18 98.6 57 18 144/69 (94) 95 12/03/17 12:00 55 12/03/17 11:37 94 21 12/03/17 08:00 55 12/03/17 08:00 97.9 54 18 106/53 (70) 96 12/03/17 07:00 Nasal Cannula 2.00 12/03/17 04:00 98.0 54 16 111/60 (77) 97 12/03/17 03:46 58 12/03/17 00:00 98.1 55 16 110/58 (75) 97 12/02/17 23:59 60 12/02/17 20:05 60 12/02/17 20:00 98.1 55 16 106/55 (72) 96 12/02/17 20:00 Nasal Cannula 2.00 12/02/17 16:12 98.2 57 18 123/63 (83) 97 12/02/17 16:00 57 (Ruth Dougherty) -: 12/03/1745212/03/17452 Imaging Last Impressions Chest X-Ray 12/02/17440 Signed Impressions: Service Date/Time: Saturday, December 02, 2017 04:52 - CONCLUSION: There is airspace consolidation in the right lower lung zone atelectasis or mild consolidation at the left lung base. Dawit Aldridge MD (Ruth Dougherty) Physical Exam General Appearance: Well Nourished, No Acute Distress, Comfortable (Ruth DoughertyP) Eyes Eye Exam: Pupils Equal (Ruth Dougherty STITCH BONDER MACHINE OPERATOR HELPER) Throat Throat Exam: Oral Mucosa [place] & Moist (Ruth Dougherty STITCH BONDER MACHINE OPERATOR HELPER) Pulmonary Resp Exam: Clear Bilaterally, Breath Sounds Equal, No Distress (Ruth DoughertyP) Cardiology CV Exam: Regular (Ruth DoughertyP) Gastrointestinal/Abdomen GI Exam: Soft, Non-Tender, Bowel Sounds Present (Ruth DoughertyP) Genitourinary Exam: Flank Non-Tender (Ruth DoughertyP) Integumentary Skin Exam: Clear, Warm Skin Remarks left foot with heel crack. No redness noted (Ruth Dougherty) Extremeties Extremities Exam: No Edema (Ruth DoughertyP) Neurologic Neuro Exam: Alert, Awake (Ruth DoughertyP) Psychiatric Psych Exam: Appropriate Responses (Ruth Dougherty) Assessment/Plan Problem List: (1) ESRD (end stage renal disease) on dialysis ICD Codes: N18.6 - End stage renal failure on dialysis; Z99.2 - Dependence on renal dialysis Status: Acute Plan: ESRD dialysis MWF - missed last Saturday Potassium WNL Chest Xray with airspace consolidation in the right lower lung zone atelectasis or mild consolidation at the left lung base. On rocephin and azithromycin. Told to avoid missing HD. Dialysis scheduled for tomorrow (2) Hyperkalemia ICD Codes: E87.5 - Hyperkalemia Status: Acute Plan: Resolved (3) Pneumonia ICD Codes: J18.9 - Pneumonia, unspecified organism Plan: Continue antibiotics per attending (4) Diabetes mellitus ICD Codes: E11.9 - Diabetes mellitus Status: Chronic Plan: Continue insulin Maintain blood sugars between 140mg/dl to 180 mg/dl (5) HTN (hypertension) ICD Codes: I10 - Hypertension Status: Acute Plan: Continue metoprolol (6) Noncompliance ICD Codes: Z91.19 - Noncompliance Status: Acute (7) Diastolic CHF ICD Codes: I50.30 - Diastolic congestive heart failure Status: Acute (8) Fluid overload ICD Codes: E87.70 - Hypervolemia Status: Acute Plan: improved (9) Elevated troponin ICD Codes: R74.8 - Abnormal levels of other serum enzymes Plan: Cardiology consulted. ECHO done Denies CP (Ruth Dougherty) Problem List: (1) ESRD (end stage renal disease) on dialysis ICD Codes: N18.6 - End stage renal failure on dialysis; Z99.2 - Dependence on renal dialysis Status: Acute Plan: ESRD dialysis MWF - missed last Saturday Potassium WNL Chest Xray with airspace consolidation in the right lower lung zone atelectasis or mild consolidation at the left lung base. On rocephin and azithromycin. Told to avoid missing HD. Dialysis scheduled for tomorrow. Patient seen and examined, agree with above. (2) Hyperkalemia ICD Codes: E87.5 - Hyperkalemia Status: Acute Plan: Resolved (3) Pneumonia ICD Codes: J18.9 - Pneumonia, unspecified organism Plan: Continue antibiotics per attending (4) Diabetes mellitus ICD Codes: E11.9 - Diabetes mellitus Status: Chronic Plan: Continue insulin Maintain blood sugars between 140mg/dl to 180 mg/dl (5) HTN (hypertension) ICD Codes: I10 - Hypertension Status: Acute Plan: Continue metoprolol (6) Noncompliance ICD Codes: Z91.19 - Noncompliance Status: Acute (7) Diastolic CHF ICD Codes: I50.30 - Diastolic congestive heart failure Status: Acute (8) Fluid overload ICD Codes: E87.70 - Hypervolemia Status: Acute Plan: improved (9) Elevated troponin ICD Codes: R74.8 - Abnormal levels of other serum enzymes Plan: Cardiology consulted. ECHO done Denies CP (Ambrose Ramirez MD) Problem Qualifiers (1) Fluid overload: Qualified Codes: E87.79 - Other fluid overload Ruth Dougherty Dec 03, 2017 14:23 Ambrose Ramirez MD Dec 03, 2017 14:49
[2017-12-03] MEDS ORDERED: ZITH250T PO (15:19)
[2017-12-03] MEDS ORDERED: CEFU1TAB20 PO (15:19)
--- NOTE | 2017-12-03 15:24 | HHI.DCPOC ---
Discharge Care Plan Diagnosis: (1) Chest pain (2) ESRD (end stage renal disease) (3) Acute on chronic diastolic (congestive) heart failure (4) HTN (hypertension) (5) Hyperlipidemia (6) Non compliance with medical treatment (7) Diabetes mellitus (8) COPD (chronic obstructive pulmonary disease) (9) Elevated troponin (10) Paroxysmal atrial fibrillation Goals to Promote Your Health * To prevent worsening of your condition and complications * To maintain your health at the optimal level Directions to Meet Your Goals Take your medications as prescribed Follow your dietary instruction Follow activity as directed Keep your appointments as scheduled Take your immunizations and boosters as scheduled If your symptoms worsen call your PCP, if no PCP go to Urgent Care Center or Emergency Room Smoking is Dangerous to Your Health. Avoid second hand smoke Call the 24-hour hour crisis hotline for domestic abuse at Giovanny Shanks MD Dec 03, 2017 15:24
--- NOTE | 2017-12-03 15:42 | HHI.DS ---
Discharge Summary Admission Date Dec 02, 2017 at 06:23 Discharge Date: Dec 03, 2017 Admitting Diagnosis pneumonia, fluid overload, end-stage renal disease, hyperkalemia (1) Pneumonia ICD Code: J18.9 - Pneumonia, unspecified organism Diagnosis: Principal Status: Acute (2) End stage renal disease ICD Code: N18.6 - End stage renal disease Diagnosis: Principal Status: Chronic (3) Non-healing open wound of heel ICD Code: S91.309A - Unspecified open wound, unspecified foot, initial encounter Diagnosis: Principal Status: Acute (4) Hyperlipidemia ICD Code: E78.5 - Hyperlipidemia Diagnosis: Principal Status: Chronic (5) HTN (hypertension) ICD Code: I10 - Hypertension Diagnosis: Principal Status: Chronic (6) Non compliance with medical treatment ICD Code: Z91.19 - Noncompliance with treatment Diagnosis: Principal Status: Acute (7) Diastolic CHF ICD Code: I50.30 - Diastolic congestive heart failure Status: Chronic (8) Noncompliance ICD Code: Z91.19 - Noncompliance Diagnosis: Principal Status: Chronic (9) Diabetes mellitus ICD Code: E11.9 - Diabetes mellitus Status: Chronic Procedures none Brief History - From Admission 57-year-old male with a history of the, hypertension, end-stage renal disease on hemodialysis Saturday, Saturday, Saturday who presents with gradually worsening shortness of breath starting 2 days ago. Patient reports missing dialysis on Saturday. He reports productive cough over the past 3 days, however is not visualized sputum. He reports dull constant right upper chest pain over the past few days which has resolved on presentation to the ER. Patient denies any fevers, chills, sore throat, nausea, vomiting. He does report that he had his brother's on Saturday, has been drinking a lot of fluids over the weekend. Denies any alcohol intake. CBC/BMP: 12/03/17 0453 12/03/17 0453 Significant Findings Laboratory Tests Test 12/02/17 04:54 12/02/17 09:47 12/02/17 15:13 12/02/17 19:06 White Blood Count 12.2 TH/MM3 (4.0-11.0) Red Blood Count 3.78 MIL/MM3 (4.50-5.90) Hemoglobin 11.7 GM/DL (13.0-17.0) Hematocrit 35.6 % (39.0-51.0) Neutrophils (%) (Auto) 74.0 % (16.0-70.0) Monocytes (%) (Auto) 11.5 % (0.0-8.0) Neutrophils # (Auto) 9.0 TH/MM3 (1.8-7.7) Monocytes # (Auto) 1.4 TH/MM3 (0-0.9) Blood Urea Nitrogen 79 MG/DL (7-18) Creatinine 16.22 MG/DL (0.60-1.30) Random Glucose 210 MG/DL (74-106) Albumin 3.3 GM/DL (3.4-5.0) Potassium Level 6.0 MEQ/L (3.5-5.1) Estimat Glomerular Filtration Rate 4 ML/MIN (>89) Creatine Kinase MB 4.0 NG/ML (0.5-3.6) Troponin I 0.16 NG/ML (0.02-0.05) 0.18 NG/ML (0.02-0.05) 0.22 NG/ML (0.02-0.05) 0.20 NG/ML (0.02-0.05) B-Type Natriuretic Peptide 1828 PG/ML (0-100) Test 12/03/17 04:53 Red Blood Count 3.65 MIL/MM3 (4.50-5.90) Hemoglobin 11.3 GM/DL (13.0-17.0) Hematocrit 34.1 % (39.0-51.0) Monocytes (%) (Auto) 12.4 % (0.0-8.0) Eosinophils (%) (Auto) 10.0 % (0.0-4.0) Eosinophils # (Auto) 0.7 TH/MM3 (0-0.4) Blood Urea Nitrogen 63 MG/DL (7-18) Creatinine 13.88 MG/DL (0.60-1.30) Random Glucose 178 MG/DL (74-106) Albumin 3.0 GM/DL (3.4-5.0) Aspartate Amino Transf (AST/SGOT) 9 U/L (15-37) Alanine Aminotransferase (ALT/SGPT) 10 U/L (12-78) Estimat Glomerular Filtration Rate 4 ML/MIN (>89) Imaging Last Impressions Chest X-Ray 12/02/17 0441 Signed Impressions: Service Date/Time: Saturday, December 02, 2017 04:52 - CONCLUSION: There is airspace consolidation in the right lower lung zone atelectasis or mild consolidation at the left lung base. Dawit Aldridge MD PE at Discharge GENERAL: This is a well-nourished, well-developed patient, in no apparent distress. Alert and oriented 3. SKIN: No rashes, ecchymoses or lesions. Cool and dry. HEAD: Atraumatic. Normocephalic. No temporal or scalp tenderness. EYES: Pupils equal round and reactive. Extraocular motions intact. No scleral icterus. No injection or drainage. ENT: Nose without bleeding, purulent drainage or septal hematoma. Throat without erythema, tonsillar hypertrophy or exudate. Uvula midline. Airway patent. NECK: Trachea midline. No JVD or lymphadenopathy. Supple, nontender, no meningeal signs. CARDIOVASCULAR: Regular rate and rhythm without murmurs, gallops, or rubs. RESPIRATORY: Crackles bilaterally at the bases. No rhonchi. No wheezing. GASTROINTESTINAL: Abdomen soft, non-tender, nondistended. No guarding. MUSCULOSKELETAL: Extremities without clubbing, cyanosis.No joint tenderness, effusion. Trace peripheral edema. No calf tenderness. Negative Homans sign bilaterally. NEUROLOGICAL: Awake and alert. Cranial nerves II through XII intact. Motor and sensory grossly within normal limits. Five out of 5 muscle strength in all muscle groups. Normal speech. Pt update on day of discharge The patient denies any chest pain, shortness of breath, fevers or chills. Patient will like to be discharged today. Patient complains of a nonhealing wound on the side of the left heel. I recommended podiatry consultation with the patient is here, however the patient would like to be discharge and follow- up as an outpatient. He states that he will go see his primary care physician to be referred to a seasonal retail merchandiser. Hospital Course The patient was admitted to the medical floor, placed on telemetry. The patient was found to be in acute on chronic diastolic CHF exacerbation due to fluid overload secondary to medication noncompliance and having missed dialysis the Saturday before the date of presentation. Nephrology was consulted for dialysis. Echocardiogram was ordered and showed a normal EF. The patient has end-stage renal disease on dialysis on Wednesdays and Fridays. Nephrology was consulted and followed the patient during hospitalization. also was found to be hyperkalemic with a potassium of 6 during admission. The patient was administered Kayexalate and bicarbonate. This was resolved prior to discharge. Patient also had some leukocytosis secondary to pneumonia or septal chest x-ray as described above. The patient was treated with IV Rocephin and IV azithromycin with significant improvement and good oxygen saturation before discharge. Patient has chronic hypertension which remained stable during the patient's hospital stay. The patient's home medications were continued. The patient's diabetes was slightly uncontrolled with a glucose of 210 on admission. The patient was placed on diabetic diet and insulin sliding scale. Blood sugars monitored. The patient instructed to return to his home medication regime upon discharge. Patient was seen by cardiology. The patient denied atrial fibrillation to cardiology. Continue aspirin. As per cardiology documentation the patient follows up as an outpatient with cardiology Dr. Atwood. The patient reported since Dr. Carvalho as an outpatient. Cardiology to terminate that the patient's chest pain was atypical and troponin that was minimally elevated was likely secondary to end-stage renal disease. Hemoglobin A1c pending upon discharge. The patient will be discharged on oral azithromycin and cefuroxime. The patient states that he has his hemodialysis schedule as an outpatient tomorrow, so is therefore requesting discharge. The patient also complained about left heel wound which on exam did not look erythematous, tender, did not have any discharge. Patient states has had the wound for 3 weeks. Recommended consulting podiatry and wound care while inpatient, however patient refused and states will go see a seasonal retail merchandiser as an outpatient. Pt Condition on Discharge: Stable Discharge Disposition: Discharge Home Discharge Time: > 30 minutes Discharge Instructions DIET: Follow Instructions for: Heart Healthy Diet, Diabetic Diet Activities you can perform: Regular-No Restrictions Activities to Avoid: Strenuous Activity Follow up Referrals: PCP Follow-up - 1 Week needs podiatry referral Podiatry - 1 Week New Medications: Azithromycin (Zithromax) 250 Mg Tab 250 MG PO DAILY for Infection, #4 TAB 0 Refills Cefuroxime (Cefuroxime) 500 Mg Tab 500 MG PO BID for Infection, #20 TAB 0 Refills Continued Medications: Albuterol 18 GM Inh (Ventolin Hfa 18 GM Inh) 90 Mcg/Act Aer 1 PUFF INH Q4H PRN for SHORTNESS OF BREATH, #1 INHALER 0 Refills Alprazolam (Xanax) 0.25 Mg Tab 0.25 MG PO Q6H PRN for ANXIETY, TAB 0 Refills Aspirin (Aspirin) 81 Mg Chew 81 MG CHEW DAILY, TAB 0 Refills Calcium Acetate (Phosphate Binder) (Calcium Acetate (Phosphate Binder)) 667 Mg Cap 1334 MG PO TID for Hyperphosphatemia, #180 CAP 0 Refills Gabapentin (Gabapentin) 600 Mg Tab 600 MG PO HS, TAB 0 Refills Insulin Glargine Inj (Lantus Inj) 1,000 Unit/10 Ml Vial 70 UNITS SQ HS for Blood Sugar Management, VIAL 0 Refills Insulin Human Regular Inj (Novolin R Inj) 1,000 Unit/10 Ml Vial 10 UNITS SQ TID for Blood Sugar Management, #10 ML 0 Refills Metoprolol Tartrate (Metoprolol Tartrate) 50 Mg Tab 50 MG PO BID, #60 TAB 0 Refills Oxycodone (Oxycodone) 15 Mg Tab 15 MG PO Q6H PRN for PAIN, #30 TAB 0 Refills Zolpidem (Ambien) 10 Mg Tab 10 MG PO HS PRN for INSOMNIA, TAB 0 Refills Giovanny Shanks MD Dec 03, 2017 15:42
--- NOTE | 2017-12-03 16:11 | EKG ---
Date Performed: 12/02/2017 Time Performed: 16:16:45 PTAGE: 57 years EKG: SINUS BRADYCARDIA WITH FIRST DEGREE AV BLOCK MARKED LEFT AXIS DEVIATION POSSIBLE LATERAL MY OCARDIAL INFARCTION , OF INDETERMINATE AGE ABNORMAL ECG Since the prior tracing, there has been no si gnificant change PREVIOUS TRACING : 12/02/2017 04.42 DOCTOR: Ailin Bullock Interpretating Date/Time 12/03/2017 16:10:21
[2017-12-03 16:19] LABS: HEMOGLOBIN A1C 7.8 % (4.3-6.0)
== END 2017-12-03 16:52 | disposition home or self-care (01) | DRG 291 ==
LOC: NEPE 04:24 → NEDA 06:23 → N04A 12:31
PROVIDERS: ADMIT Hospitalist; ATTEND Hospitalist
PROC: 5A1D70Z Performance of Urinary Filtration, Intermittent, Less than 6 Hours Per Day (ICD-10-PCS; principal; 2017-12-02)
DX: I13.2 Hypertensive heart and chronic kidney disease with heart failure and with stage 5 chronic kidney disease, or end stage renal disease (principal); I50.33 Acute on chronic diastolic (congestive) heart failure; J18.9 Pneumonia, unspecified organism; N18.6 End stage renal disease; J44.0 Chronic obstructive pulmonary disease with (acute) lower respiratory infection; E11.22 Type 2 diabetes mellitus with diabetic chronic kidney disease; E11.40 Type 2 diabetes mellitus with diabetic neuropathy, unspecified; J98.11 Atelectasis; I48.0 Paroxysmal atrial fibrillation; E78.5 Hyperlipidemia, unspecified; E87.5 Hyperkalemia; M19.90 Unspecified osteoarthritis, unspecified site; E11.65 Type 2 diabetes mellitus with hyperglycemia; G47.30 Sleep apnea, unspecified; K21.9 Gastro-esophageal reflux disease without esophagitis; Z91.15 Patient's noncompliance with renal dialysis; Z91.14 Patient's other noncompliance with medication regimen; Z23 Encounter for immunization; Z87.891 Personal history of nicotine dependence; Z79.4 Long term (current) use of insulin; Z99.2 Dependence on renal dialysis
CPT/HCPCS: 71045; 76937; 80053; 82550; 82552; 82948; 83036; 83880; 84484; 85025; 85610; 85730; 87040; 87804; 90732; 90935; 93005; 93306; 96365; 96374; 96375; J0456; J0696; J1580; J1644; J1815; J2405; J7050

== ENCOUNTER → 2018-01-28 | Day surgery (SDC) | payer MEDICARE, MEDICAID ==
[~2018-01-28] VITALS: Ht 185.4 cm; Wt 121.8 kg
[~2018-01-28] MED LIST changes: +*morphine SULFATE 4 MG/ML PERIprocedure ONLY ONE; +AMPI500 PO; +BUPIVACAINE HCL PF 0.5% 30 ML VIAL ONE; +CHLORHEXIDINE GLUCONATE 2 % 1 PACK (2 CLOTHS) TOPICAL PRN; +CINA30 PO; +DEXAMETHASONE SOD PHOS 4 MG/ML VIAL IV ONE; +DO NOT ADM ANY ANTICOAGULANT DRUGS PRN; +GLYCOPYRROLATE 1 MG/5 ML SYRINGE IV PUSH ONE; +HEPARIN SODIUM - IV 10,000 UNITS/10 ML VIAL ONE; +HEPARIN-NS/PF INJ 500 ML ONE; +INSULIN HUMAN REGULAR 1,000 UNITS/10 ML VIAL IV PUSH ONE; +INSULIN HUMAN REGULAR 1,000 UNITS/10 ML VIAL ONE; +LACTATED RINGER'S 1000 ML IV PRN; +LEVO750T3 PO; +LIDOCAINE HCL 1% PF 5 ML SYRINGE OTHER ONE; +METOPROLOL TARTRATE 25 MG TAB PO PRN; +NEOSTIGMINE 5 MG/5 ML SYRINGE IV PUSH ONE; -NEPHTAB3 PO; +POVIDONE IODINE 5% (ANTISEPSIS KIT) 4 APPLICATIONS EACH NARE PRN; +PROPOFOL 200 MG/20 ML AMP IV ONE; +PROTAMINE SULFATE 50 MG/5 ML VIAL ONE; +ROCURONIUM INJ 50 MG/5 ML SYRINGE IV PUSH ONE; +SODIUM CHLORID 0.9% 500 ML IV PRN; +SUCCINYLCHOLINE CHLORIDE 200 MG/10 ML VIAL IV ONE; +THROMBIN (TOPICAL) 20,000 UNIT SPRAY KIT ONE; +VANCOMYCIN HCL 1000 MG VIAL ONE; +ePHEDrine/NS 25 MG/5 ML SYRINGE IV ONE
--- NOTE | 2018-01-28 06:42 | HHI.HP ---
History of Present Illness Chief Complaint: ESRD, need for HD Access History of Present Illness 57 yo male with ESRD who underwent R BB AVF (1st stage) on 10/29/17. By clinical examination and duplex, the AVF is mature and ready for second stage ( superficialization) Past/Family/Social History Past Medical History ESRD HTN COPD DM XOL Past Surgical History R BB AVF L UE AVF 3 years ago - OSH daniele bowel surgery Social History nonsmoker Family History [place] Home Medications Active Scripts Oxycodone (Oxycodone) 15 Mg Tab, 15 MG PO Q6H Y for PAIN, #30 TAB 0 Refills Prov:David Horta MD 02/13/17 Reported Medications Cinacalcet (Sensipar) 30 Mg Tab, 30 MG PO DAILY, #30 TAB 0 Refills 01/27/18 Ampicillin (Ampicillin Trihydrate) 500 Mg Capsule, 1 TAB PO Q6HR 01/27/18 Levofloxacin (Levofloxacin) 750 Mg Tablet, 750 MG PO DAILY for Infection, TAB 0 Refills 01/27/18 Calcium Acetate (Phosphate Binder) (Calcium Acetate (Phosphate Binder)) 667 Mg Cap, 1334 MG PO TID for Hyperphosphatemia, #180 CAP 0 Refills 10/29/17 Metoprolol Tartrate (Metoprolol Tartrate) 50 Mg Tab, 50 MG PO BID, #60 TAB 0 Refills 10/23/17 Gabapentin (Gabapentin) 600 Mg Tab, 600 MG PO HS, TAB 0 Refills 02/08/17 Insulin Human Regular Inj (Novolin R Inj) 1,000 Unit/10 Ml Vial, 10 UNITS SQ TID for Blood Sugar Management, #10 ML 0 Refills 09/03/16 Aspirin (Aspirin) 81 Mg Chew, 81 MG CHEW DAILY, TAB 0 Refills 09/03/16 Alprazolam (Xanax) 0.25 Mg Tab, 0.25 MG PO Q6H Y for ANXIETY, TAB 0 Refills 09/03/16 Albuterol 18 GM Inh (Ventolin Hfa 18 GM Inh) 90 Mcg/Act Aer, 1 PUFF INH Q4H Y for SHORTNESS OF BREATH, #1 INHALER 0 Refills 09/03/16 Insulin Glargine Inj (Lantus Inj) 1,000 Unit/10 Ml Vial, 70 UNITS SQ HS for Blood Sugar Management, VIAL 0 Refills 09/03/16 Zolpidem (Ambien) 10 Mg Tab, 10 MG PO HS Y for INSOMNIA, TAB 0 Refills 09/03/16 Discontinued Scripts Cefuroxime (Cefuroxime) 500 Mg Tab, 500 MG PO BID for Infection, #20 TAB 0 Refills Prov:Giovanny Shanks MD 12/03/17 Azithromycin (Zithromax) 250 Mg Tab, 250 MG PO DAILY for Infection, #4 TAB 0 Refills Prov:Giovanny Shanks MD 12/03/17 Coded Allergies: No Known Allergies (Verified Allergy, Unknown, 01/28/18) Review of Systems Constitutional: DENIES: Fever, Chills Physical Exam Neuro: alert, oriented, no distress HEENT: NC/AT Neck: no JVD Heart: reg rate Lungs: scattered rhonchi R lung Vascular: R UE + thrill Extremities: good RUE hand function; incision healed pending Caprini VTE Risk Assessment Caprini VTE Risk Assessment: No/Low Risk (score <= 1) Caprini Risk Assessment Model Point Value = 1 Point Value = 2 Point Value = 3 Point Value = 5 Age 41-60 Minor surgery BMI > 25 kg/m2 Swollen legs Varicose veins or History of unexplained or recurrent spontaneous Oral contraceptives or hormone replacement Sepsis (< 1 month) Serious lung disease, including pneumonia (< 1 month) Abnormal pulmonary function Acute myocardial infarction Congestive heart failure (< 1 month) History of inflammatory bowel disease Medical patient at bed rest Age 61-74 Arthroscopic surgery Major open surgery (> 45 min) Laparoscopic surgery (> 45 min) Malignancy Confined to bed (> 72 hours) Immobilizing plaster cast Central venous access Age >= 75 History of VTE Family history of VTE Factor V Leiden Prothrombin [id number] Lupus anticoagulant Anticardiolipin antibodies Elevated serum homocysteine Heparin-induced thrombocytopenia Other congenital or acquired thrombophilia Stroke (< 1 month) Elective arthroplasty Hip, pelvis, or leg fracture Acute spinal cord injury (< 1 month) Prophylaxis Regimen Total Risk Factor Score Risk Level Prophylaxis Regimen 0-1 Low Early ambulation 2 Moderate Order ONE of the following: *Sequential Compression Device (SCD) *Heparin 5000 units SQ BID 3-4 Higher Order ONE of the following medications: *Heparin 5000 units SQ TID *Enoxaparin/Lovenox 40 mg SQ daily (WT < 150 kg, CrCl > 30 mL/min) *Enoxaparin/Lovenox 30 mg SQ daily (WT < 150 kg, CrCl > 10-29 mL/min) *Enoxaparin/Lovenox 30 mg SQ BID (WT < 150 kg, CrCl > 30 mL/min) AND/OR *Sequential Compression Device (SCD) 5 or more Highest Order ONE of the following medications: *Heparin 5000 units SQ TID (Preferred with Epidurals) *Enoxaparin/Lovenox 40 mg SQ daily (WT < 150 kg, CrCl > 30 mL/min) *Enoxaparin/Lovenox 30 mg SQ daily (WT < 150 kg, CrCl > 10-29 mL/min) *Enoxaparin/Lovenox 30 mg SQ BID (WT < 150 kg, CrCl > 30 mL/min) AND *Sequential Compression Device (SCD) Assessment and Plan Plan R UE access revision today Discussed with patient and . Ready for surgery Operative site marked [phone] Discharge Planning later today Uri Medina MD Jan 28, 2018 06:42
[2018-01-28 06:59] LABS: AUTOMATED NEUTROPHIL # 4.8 TH/MM3 (1.8-7.7); BASOPHIL # 0.1 TH/MM3 (0-0.2); BASOPHIL % 1.1 % (0.0-2.0); EOSINOPHIL # 0.2 TH/MM3 (0-0.4); EOSINOPHIL % 2.7 % (0.0-4.0); HEMATOCRIT 35.1 % (39.0-51.0); HEMOGLOBIN 11.7 GM/DL (13.0-17.0); LYMPH % 17.5 % (9.0-44.0); LYMPHOCYTE # 1.3 TH/MM3 (1.0-4.8); MEAN CORPUSCULAR HEMOGLOBIN 30.8 PG (27.0-34.0); MEAN CORPUSCULAR HGB CONC 33.5 % (32.0-36.0); MEAN PLATELET VOLUME 9.1 FL (7.0-11.0); MONO % 11.3 % (0.0-8.0); MONOCYTE # 0.8 TH/MM3 (0-0.9); NEUT % 67.4 % (16.0-70.0); PLATELET COUNT 108 TH/MM3 (150-450); RED BLOOD COUNT 3.81 MIL/MM3 (4.50-5.90); WHITE BLOOD COUNT 7.2 TH/MM3 (4.0-11.0)
[2018-01-28 07:09] LABS: INTERNATIONAL NORMALIZED RATIO 1.1 RATIO; PROTHROMBIN TIME - PATIENT 10.7 SEC (9.8-11.6)
[2018-01-28 07:19] LABS: BICARBONATE 24.3 MEQ/L (21.0-32.0); CREATININE 7.57 MG/DL (0.60-1.30)
--- NOTE | 2018-01-28 08:44 | HHI.PR ---
cc: Uri Medina MD; Ambrose Ramirez MD Immediate Post Op Note Procedure Date: Jan 28, 2018 Pre Op Diagnosis: ESRD, need for HD access Post Op Diagnosis: ESRD, need for HD access Surgeon: Uri Medina Candy Maker Helper(s): Uri Pruitt Procedure: R UE access revision (superficialization) Findings: good diameter AVF, nice thrill Additional Information: pt thaddeus well Complications: none Specimen(s) removed: none Estimated blood loss: 20mL Anesthesia: General Drains: None Fluids: 750mL IVF Patient to: PACU Patient Condition: Good Date/Time of Procedure: SEE SURGICAL CARE RECORD Uri Medina MD Jan 28, 2018 08:44
--- NOTE | 2018-01-28 10:27 | MP ---
cc: Uri Medina MD DATE OF OPERATION: 01/28/2018 PREOPERATIVE DIAGNOSIS: End-stage renal disease, needs dialysis access. POSTOPERATIVE DIAGNOSIS: End-stage renal disease, needs dialysis access. PROCEDURE PERFORMED: Right upper extremity access revision (superficialization). ATTENDING SURGEON: Uri Medina MD STEEPING PRESS TENDER SURGEON: Uri Bean. ANESTHESIA: General. INDICATIONS: Mr. Hernandez is a 57-year-old gentleman with end-stage renal disease who has a left brachiobasilic fistula. It was done as the first of 2 planned stages. He is taken to the operating room for second stage. DESCRIPTION OF PROCEDURE: Informed consent was obtained from the patient. He was taken to the operating room and placed supine on the operating table. An appropriate timeout was taken to ensure the patient's identity, operative site and planned procedure, the administration of a gram of vancomycin was initiated prior to skin incision. We discontinued after single preoperative dose. Vancomycin was chosen because of the patient's end-stage renal disease. Everyone in the room agreed with timeout and we proceeded. The right arm was prepped and draped. Incision was made along the medial aspect of the upper arm and carried down through the subcutaneous tissue with electrocautery. The basilic vein was identified and dissected free. It was dissected free in the entirety all the way up to the axilla and side branches were ligated with 3-0 silk. The wound was irrigated, infiltrated with Marcaine and closed with 2-0 Polysorb beneath the elevated access and 3-0 Polysorb and 4-0 Monocryl above the access. There were no complications. I was present and scrubbed and performed the entire procedure. Uri Medina MD RJF/TL , 10:02 AM , 10:25 AM
--- NOTE | 2018-01-28 10:54 | PD.VS.PN ---
Subjective POD #: 0 Procedure(s): R UE access revision (superficialization) Subjective/Hospital Course Pt evaluated in PACU Pt resting comfortably w/o hand pain UE warm with motor intact Incision intact w/o R/D Objective Vitals/I&O Date Time Temp Pulse Resp B/P (MAP) Pulse Ox O2 Delivery O2 Flow Rate FiO2 01/28/18 10:20 97.8 55 16 126/66 (86) 97 Room Air 01/28/18 10:15 98.2 54 13 129/67 (87) 95 Room Air 01/28/18 10:00 56 14 130/69 (89) 94 Room Air 01/28/18 09:45 55 16 131/67 (88) 95 Room Air 01/28/18 09:30 56 14 140/69 (92) 95 Room Air 01/28/18 09:17 97.8 54 15 136/65 (88) 100 Simple Mask 6 01/28/18 06:53 98.1 54 20 113/65 (81) 99 01/28/18 01/28/18 01/28/18 07:00 15:00 23:00 Intake Total 750 ml Output Total 20 ml Balance 730 ml Exam: GENERAL: Alert in NAD SKIN: UE Warm and dry w/ motor intact + thrill palpated near R UE AVF + faint Palpable R Radial pulse Laboratory Laboratory Tests Test 01/28/18 06:45 White Blood Count 7.2 Red Blood Count 3.81 Hemoglobin 11.7 Hematocrit 35.1 Mean Corpuscular Volume 92.0 Mean Corpuscular Hemoglobin 30.8 Mean Corpuscular Hemoglobin Concent 33.5 Red Cell Distribution Width 15.0 Platelet Count 108 Mean Platelet Volume 9.1 Neutrophils (%) (Auto) 67.4 Lymphocytes (%) (Auto) 17.5 Monocytes (%) (Auto) 11.3 Eosinophils (%) (Auto) 2.7 Basophils (%) (Auto) 1.1 Neutrophils # (Auto) 4.8 Lymphocytes # (Auto) 1.3 Monocytes # (Auto) 0.8 Eosinophils # (Auto) 0.2 Basophils # (Auto) 0.1 CBC Comment DIFF FINAL Differential Comment Prothrombin Time 10.7 Prothromb Time International Ratio 1.1 Blood Urea Nitrogen 30 Creatinine 7.57 Random Glucose 304 Calcium Level 9.0 Sodium Level 136 Potassium Level 5.0 Chloride Level 102 Carbon Dioxide Level 24.3 Anion Gap 10 Estimat Glomerular Filtration Rate 9 Assessment and Plan Plan Pt s/p R UE access revision POD 0 Pt w/o hand pain + thrill present Plan Pt to be d/c today Will arrange out pt f/u in 2W Maria Ines Britt NP [facility] [phone] Discharge Planning later today Maria Ines Britt [facility] Jan 28, 2018 10:54
[2018-01-28 11:51] VITALS: BP 121/65; PULSE 58; RESP 16; TEMP 97.6; O2SAT 98
== END | disposition home or self-care (01) ==
LOC: HSDC 05:58
PROVIDERS: ATTEND Surgery
DX: N18.6 End stage renal disease (principal); I12.0 Hypertensive chronic kidney disease with stage 5 chronic kidney disease or end stage renal disease; E11.22 Type 2 diabetes mellitus with diabetic chronic kidney disease; J44.9 Chronic obstructive pulmonary disease, unspecified; Z79.4 Long term (current) use of insulin; Z79.82 Long term (current) use of aspirin; Z99.2 Dependence on renal dialysis
CPT/HCPCS: 01844; 36825; 80048; 85025; 85610; J0330; J1100; J1644; J1815; J2270; J2710; J2720; J3010; J3370; J7120